=== PATIENT | female | born 1960 | race Caucasian/White ===

== ENCOUNTER → 2016-04-17 | Outpatient (CLI) | payer MEDICAID ==
[~2016-04-17] MED LIST: AEROECLIPSE NEB1 DEV; ALBUTEROL SULFAT3 M2 IH; ALPRAZOLAM0.5 M3 PO; ASPIRIN ADULT L81 M2 PO; ATROVENT H0.017 MG/A IH; DIFLUCAN 100MG100 MG PO; GABAPENTIN100 MG PO; GOOD NEIGHBOR P20 M1 PO; HYDROXYZINE PAM50 MG PO; LEVAQUIN500 MG PO; LEVAQUIN750 MG PO; LOPRESSOR 50 MG50 MG PO; MAGMTHWSH PO; METOPROLOL25 MG PO; NEURONTIN400 MG PO; ONDANSETRON8 M1 PO; OXYCODONE 5MG TA5 MG PO; PHENERGAN120 ML/BOT PO; SYMBICORT1 AE1 IH; ULTRAM50 MG PO; VISTARIL25 MG PO; XANAX 0.25MG0.25 MG PO; [UNRECOGNIZED DRUG - OTHER] PO
[2016-04-17 12:49] LABS: HEMOGLOBIN 14.2 g/dL (12.2-16.2); LYMPH # 1.3 K/mm3 (0.7-4.5); LYMPH % 22.6 % (10-50.0)
[2016-04-17 14:22] LABS: BUN 10 mg/dL (7-18)
[2016-04-17 14:23] LABS: GFR (ESTIMATED) 103 ML/MIN (59-)
== END ==
LOC: LAB 12:36
PROVIDERS: Nurse Practitioner
DX: C34.90 Malignant neoplasm of unspecified part of unspecified bronchus or lung (principal); R53.0 Neoplastic (malignant) related fatigue

== ENCOUNTER → 2016-06-02 | Outpatient (CLI) | payer MEDICAID ==
[2016-06-02 14:46] LABS: HEMOGLOBIN 14.2 g/dL (12.2-16.2); LYMPH # 1.3 K/mm3 (0.7-4.5); LYMPH % 27.9 % (10-50.0)
[2016-06-02 15:31] LABS: BUN 12 mg/dL (7-18)
[2016-06-02 15:40] LABS: GFR (ESTIMATED) 103 ML/MIN (59-)
== END ==
LOC: LAB 14:36
PROVIDERS: Nurse Practitioner Family
DX: B18.2 Chronic viral hepatitis C (principal)

== ENCOUNTER 2016-12-26 11:46 | Emergency (ER) | payer MEDICAID ==
[~2016-12-26] VITALS: Ht 170.2 cm; Wt 69.4 kg
[~2016-12-26 11:46] MED LIST changes: +ATORVASTATIN CA40 MG PO; +BEVESPI AEROS10.7 GM IH; +ISOSORBIDE MONO30 MG PO; +LIPITOR10 MG PO; +METOPROLOL 25 M25 MG PO; +NITROGLYCERIN0.4 M1 SL; +NORCO 325 MG-51 TAB PO
--- NOTE | 2016-12-26 12:15 | Emergency Room Report ---
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 N Clinical Suspician of Infection? N Mental Status: 1 - Regular (Normal Baseline) Sepsis Risk:Possible Sepsis Risk Have you (or family members/close friends) recently traveled outside the [place]? N If Yes, where/when: Have you had exposure to infectious disease within the past month? TB? Other? Specify: 56 years old white female with multiple medical problems including coronary artery disease and chronic obstructive pulmonary disease and non-small cell lung cancer of the LEFT lower lobe. She has been experiencing a retrosternal chest pain alternating between sharp and pressure radiating to both upper extremities for the past weeks. She had an episode this morning at 9:30 this was relieved with nitroglycerin after 2 minutes. He presented to the ED for evaluation. She has refused treatment with chemotherapy for her non-small cell cancer and she is using home remedies. she continues to smoke. Ii reviewed her cth report and oncology report. Source patient, RN notes reviewed, old records, cath report and oncology report from 12/20/16. Exam Limitations no limitations ALLERGIES Coded Allergies: isosorbide (From IMDUR) (Intermediate, 12/26/16) tramadol (Intermediate, NERVES 12/31/15) naproxen (UNKNOWN 12/31/15) Home Medications Active Scripts NEBULIZER (Aeroeclipse II Nebulizer) 1 EACH NA UD #1 Prov: 12/22/15 Albuterol Sulfate (Albuterol 0.042% Neb) 1.25 MG IH TIDP PRN SHORTNESS OF AIR #30 VIAL Prov: 12/22/15 Reported Medications Omeprazole 20 MG PO BID Ipratropium [place] (Atrovent Hfa) 2 PUFF IH Q4HP PRN SHORTNESS OF BREATH BUDESONIDE/FORMOTEROL FUMARATE (Symbicort 160-4.5 Mcg Inhaler) 2 PUFF IH BID Alprazolam 0.5 MG PO TIDP PRN ANXIETY GABAPENTIN (Gabapentin) 400 MG PO TID Metoprolol Tartrate (Metoprolol 25MG) 25 MG PO QHS Aspirin 81 MG PO DAILY OXYCODONE IR (Oxycodone IR) 5 MG PO Q6HP PRN PAIN #120 Nitroglycerin 0.4 MG SL PRN PRN CHEST PAIN #25 Glycopyrrolate/Formoterol Fum (Bevespi Aerosphere Inhaler) 10.7 GM IH PRN PRN BREATHING History Medical History General CAD? No Angina: Yes [place]: Yes Hypertension? Yes Hyperlipidemia? Yes CHF? No DVT? No PE? No COPD? Yes Asthma? Yes Anemia? Yes GERD? No Gastric ulcers? No GI Bleed? No Hernia? No Thyroid Problems? No Hypothyroidism? No CVA? No Seizures? No Diabetes? No Renal Insuffiency? No End Stage Renal Disease? No UTI? No Stones? No BPH? No GB Disease: No Nephritic Syndrome? No Asplenia? No Hepatitis? Yes Sickle Cell Disease? No Arthritis? No Migraines? No Cataracts? No Glaucoma? No MRSA? No HIV? No TB? No Anxiety? Yes Depression? No Cancer? Yes Site: LUNG More? 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 Respiratory no symptoms reported Cardiovascular see HPI Gastrointestinal no symptoms reported Genitourinary no symptoms reported. Musculoskeletal no symptoms reported Skin no symptoms reported Psychiatric/Neurological no symptoms reported Physical Exam Vital Signs Vital Signs Date Time Temp Pulse Resp B/P Pulse O2 O2 Flow FiO2 Ox Delivery Rate 12/26 1328 85 18 113/70 93 12/26 1238 98.2 84 18 106/60 93 12/26 1150 98.0 93 20 104/55 98 General Appearance normal appearance, WD/WN Eye Exam - bilateral eye normal exam, bilateral eye PERRL, bilateral eye EOMI Ear, Nose, Throat hearing grossly normal, normal ENT inspection Neck normal inspection, non-tender, supple, full range of motion Respiratory Status Yes: trachea midline, chest symmetrical, non tender chest. No: respiratory distress. Lung Sounds bilateral: normal breath sounds, lungs clear. 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 No Results/Orders Laboratory Tests 12/26/16 1205: Lactic Acid Pending 12/26/16 1205: B-Natriuretic Peptide 126 H 12/26/16 1205: Sodium 140, Potassium 3.8, Chloride 104, Carbon Dioxide 29, BUN 9, Creatinine 0.8, Estimated Creat Clear 85, Estimated GFR (MDRD) 74, Glucose 100, Calcium 8.8 , Total Bilirubin 0.5, AST 33, ALT 33, Alkaline Phosphatase 154 H, Creatine Kinase 70, CK-MB (CK-2) Rel Index 1.3, CK and CKMB Interp 0.9, Troponin I < 0.02 , Total Protein 8.3 H, Albumin 3.6, Globulin 4.7 H, Albumin/Globulin Ratio 0.8 L, D-Dimer 375, WBC 4.4 L, RBC 4.88, Hgb 14.8, Hct 44.4, MCV 91.0, RDW 14.4, Plt Count 331, MPV 7.4, Gran % 63.1, Gran # 2.8, Lymphocytes % 24.3, Monocytes % 9.6 H, Eosinophils % 2.2, Basophils % 0.7, Lymphocytes # 1.1, Monocytes # 0.4, Eosinophils # 0.1, Basophils # 0.0, PUBS MCHC 33.0, MCH 30.1 Current Medication Orders Sig/Veronica Start time Last Medication Dose Route Stop Time Status Admin Sodium Chloride 10 ML PRN PRN 12/26 1200 AC IV 12/27 1150 Orders Procedure Date/time Status LACTIC ACID 12/26 1327 Active CULTURE, BLOOD 12/26 1324 Active D-DIMER 12/26 1209 Complete BRAIN NATRIURETIC PEPTIDE 12/26 1209 Complete ELECTROCARDIOGRAM REQUEST 12/26 1150 Active IV SALINE LOCK 12/26 1150 Active CBC WITH AUTO DIFF 12/26 1150 Complete CARDIAC ENZYMES 12/26 1150 Complete CHEM 12 PROFILE 12/26 1150 Complete 12 LEAD EKG-BRIAN (INITIAL) 12/26 UNK Active CM/EKG 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 Unchanged. Departure Departure Time of Disposition 1212 Disposition DC/XFER from ER to ... Hosp Clinical Impression Primary Impression: Atypical chest pain Secondary Impressions: COPD (chronic obstructive pulmonary disease), Lung cancer , Non compliance w medication regimen, Tobacco use Condition STABLE Referrals Mounika Kiran APRN (Family) Additional Instructions I discussed with Ms. Flores her present findings including labs and chest x-ray. She was advised to return back to [facility]. She told me she states she is scared of taking these medications. I explained to her that she had coronary artery disease and she needs her medications. She told me that she will follow up with her order fulfillment specialist in 2 days. I notified The order fulfillment specialist of the situation from the Ed , they will see her in the office. She demanded an antibiotic prescription because she had similar symptoms in the past and it was bronchitis. I advised her to stop smoking at least because of her cancer that she is not getting treatment for. She verbalizes understanding. She'll continue to follow up with her order fulfillment specialist and her oncologist. Discharge Counseling Counseled pt/family regarding diagnosis, test results, medications/RX, home care, follow up needs Prescriptions Current Visit Scripts Azithromycin (Zithromax) 250 MG PO DAILY #6 TAB USE DIRECTED. Benzonatate (Tessalon Perle) 100 MG PO Q4HP PRN cough #24 SGL ED Critical Care Critical Care No If Critical Care minutes are documented, the time involved in the performance of seperately reportable procedures was not counted toward critical care time documented. I directly delivered medical care to this critically ill and/or injured patient. Timely evaluation and treatment was necessary to address the significant organ system(s) dysfunction present in this patient. at 1352
--- NOTE | 2016-12-26 12:15 | Emergency Room Report ---
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 N Clinical Suspician of Infection? N Mental Status: 1 - Regular (Normal Baseline) Sepsis Risk:Possible Sepsis Risk Have you (or family members/close friends) recently traveled outside the [place]? N If Yes, where/when: Have you had exposure to infectious disease within the past month? TB? Other? Specify: 56 years old white female with multiple medical problems including coronary artery disease and chronic obstructive pulmonary disease and non-small cell lung cancer of the LEFT lower lobe. She has been experiencing a retrosternal chest pain alternating between sharp and pressure radiating to both upper extremities for the past weeks. She had an episode this morning at 9:30 this was relieved with nitroglycerin after 2 minutes. He presented to the ED for evaluation. She has refused treatment with chemotherapy for her non-small cell cancer and she is using home remedies. she continues to smoke. Ii reviewed her cth report and oncology report. Source patient, RN notes reviewed, old records, cath report and oncology report from 12/20/16. Exam Limitations no limitations ALLERGIES Coded Allergies: isosorbide (From IMDUR) (Intermediate, 12/26/16) tramadol (Intermediate, NERVES 12/31/15) naproxen (UNKNOWN 12/31/15) Home Medications Active Scripts NEBULIZER (Aeroeclipse II Nebulizer) 1 EACH NA UD #1 Prov: 12/22/15 Albuterol Sulfate (Albuterol 0.042% Neb) 1.25 MG IH TIDP PRN SHORTNESS OF AIR #30 VIAL Prov: 12/22/15 Reported Medications Omeprazole 20 MG PO BID Ipratropium [place] (Atrovent Hfa) 2 PUFF IH Q4HP PRN SHORTNESS OF BREATH BUDESONIDE/FORMOTEROL FUMARATE (Symbicort 160-4.5 Mcg Inhaler) 2 PUFF IH BID Alprazolam 0.5 MG PO TIDP PRN ANXIETY GABAPENTIN (Gabapentin) 400 MG PO TID Metoprolol Tartrate (Metoprolol 25MG) 25 MG PO QHS Aspirin 81 MG PO DAILY OXYCODONE IR (Oxycodone IR) 5 MG PO Q6HP PRN PAIN #120 Nitroglycerin 0.4 MG SL PRN PRN CHEST PAIN #25 Glycopyrrolate/Formoterol Fum (Bevespi Aerosphere Inhaler) 10.7 GM IH PRN PRN BREATHING History Medical History General CAD? No Angina: Yes [place]: Yes Hypertension? Yes Hyperlipidemia? Yes CHF? No DVT? No PE? No COPD? Yes Asthma? Yes Anemia? Yes GERD? No Gastric ulcers? No GI Bleed? No Hernia? No Thyroid Problems? No Hypothyroidism? No CVA? No Seizures? No Diabetes? No Renal Insuffiency? No End Stage Renal Disease? No UTI? No Stones? No BPH? No GB Disease: No Nephritic Syndrome? No Asplenia? No Hepatitis? Yes Sickle Cell Disease? No Arthritis? No Migraines? No Cataracts? No Glaucoma? No MRSA? No HIV? No TB? No Anxiety? Yes Depression? No Cancer? Yes Site: LUNG More? 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 Respiratory no symptoms reported Cardiovascular see HPI Gastrointestinal no symptoms reported Genitourinary no symptoms reported. Musculoskeletal no symptoms reported Skin no symptoms reported Psychiatric/Neurological no symptoms reported Physical Exam Vital Signs Vital Signs Date Time Temp Pulse Resp B/P Pulse O2 O2 Flow FiO2 Ox Delivery Rate 12/26 1328 85 18 113/70 93 12/26 1238 98.2 84 18 106/60 93 12/26 1150 98.0 93 20 104/55 98 General Appearance normal appearance, WD/WN Eye Exam - bilateral eye normal exam, bilateral eye PERRL, bilateral eye EOMI Ear, Nose, Throat hearing grossly normal, normal ENT inspection Neck normal inspection, non-tender, supple, full range of motion Respiratory Status Yes: trachea midline, chest symmetrical, non tender chest. No: respiratory distress. Lung Sounds bilateral: normal breath sounds, lungs clear. 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 No Results/Orders Laboratory Tests 12/26/16 1205: Lactic Acid Pending 12/26/16 1205: B-Natriuretic Peptide 126 H 12/26/16 1205: Sodium 140, Potassium 3.8, Chloride 104, Carbon Dioxide 29, BUN 9, Creatinine 0.8, Estimated Creat Clear 85, Estimated GFR (MDRD) 74, Glucose 100, Calcium 8.8 , Total Bilirubin 0.5, AST 33, ALT 33, Alkaline Phosphatase 154 H, Creatine Kinase 70, CK-MB (CK-2) Rel Index 1.3, CK and CKMB Interp 0.9, Troponin I < 0.02 , Total Protein 8.3 H, Albumin 3.6, Globulin 4.7 H, Albumin/Globulin Ratio 0.8 L, D-Dimer 375, WBC 4.4 L, RBC 4.88, Hgb 14.8, Hct 44.4, MCV 91.0, RDW 14.4, Plt Count 331, MPV 7.4, Gran % 63.1, Gran # 2.8, Lymphocytes % 24.3, Monocytes % 9.6 H, Eosinophils % 2.2, Basophils % 0.7, Lymphocytes # 1.1, Monocytes # 0.4, Eosinophils # 0.1, Basophils # 0.0, PUBS MCHC 33.0, MCH 30.1 Current Medication Orders Sig/Veronica Start time Last Medication Dose Route Stop Time Status Admin Sodium Chloride 10 ML PRN PRN 12/26 1200 AC IV 12/27 1150 Orders Procedure Date/time Status LACTIC ACID 12/26 1327 Active CULTURE, BLOOD 12/26 1324 Active D-DIMER 12/26 1209 Complete BRAIN NATRIURETIC PEPTIDE 12/26 1209 Complete ELECTROCARDIOGRAM REQUEST 12/26 1150 Active IV SALINE LOCK 12/26 1150 Active CBC WITH AUTO DIFF 12/26 1150 Complete CARDIAC ENZYMES 12/26 1150 Complete CHEM 12 PROFILE 12/26 1150 Complete 12 LEAD EKG-BRIAN (INITIAL) 12/26 UNK 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 Unchanged. Departure Departure Time of Disposition 1212 Disposition DC/XFER from ER to ... Hosp Clinical Impression Primary Impression: Atypical chest pain Secondary Impressions: COPD (chronic obstructive pulmonary disease), Lung cancer , Non compliance w medication regimen, Tobacco use Condition STABLE Referrals Mounika Kiran APRN (Family) Additional Instructions I discussed with Ms. Flores her present findings including labs and chest x-ray. She was advised to return back to [facility]. She told me she states she is scared of taking these medications. I explained to her that she had coronary artery disease and she needs her medications. She told me that she will follow up with her nursing director in 2 days. I notified The nursing director of the situation from the Ed , they will see her in the office. She demanded an antibiotic prescription because she had similar symptoms in the past and it was bronchitis. I advised her to stop smoking at least because of her cancer that she is not getting treatment for. She verbalizes understanding. She'll continue to follow up with her nursing director and her oncologist. Discharge Counseling Counseled pt/family regarding diagnosis, test results, medications/RX, home care, follow up needs Prescriptions Current Visit Scripts Azithromycin (Zithromax) 250 MG PO DAILY #6 TAB USE DIRECTED. Benzonatate (Tessalon Perle) 100 MG PO Q4HP PRN cough #24 SGL ED Critical Care Critical Care No If Critical Care minutes are documented, the time involved in the performance of seperately reportable procedures was not counted toward critical care time documented. I directly delivered medical care to this critically ill and/or injured patient. Timely evaluation and treatment was necessary to address the significant organ system(s) dysfunction present in this patient. at 135
[2016-12-26 12:26] LABS: LYMPH # 1.1 K/mm3 (0.7-4.5); LYMPH % 24.3 % (10-50.0)
[2016-12-26 12:28] LABS: HEMOGLOBIN 14.8 g/dL (12.2-16.2)
[2016-12-26 12:47] LABS: BUN 9 mg/dL (7-18)
[2016-12-26 12:48] LABS: GFR (ESTIMATED) 74 ML/MIN (59-)
--- NOTE | 2016-12-26 13:32 | RADIOLOGY REPORT PS360 ---
CHEST(2 VIEWS-NOT PORTABLE) HISTORY: CHEST PAIN, lung mass, dyspnea ORDERING PHYSICIAN: Mirta Hutchins MD PATIENT AGE: 56 years COMPARISON: Chest CT of 11/02/2016 and radiograph of 09/09/2016 FINDINGS: Normal heart size.. Left lower lobe mass is again noted measuring 4 cm with associated atelectasis and/or fibrosis in left lung base with blunting of the CP angle. Pleural thickening is present along the posterior hemithorax and is somewhat more prominent compared to the prior radiograph and may represent loculated effusion. The right lung is clear. No acute bony anomalies. IMPRESSION: 1. No change left lower lobe mass suspicious for neoplasm with chronic changes in the left lung base and pleural thickening along the left lower hemithorax posteriorly.
[2016-12-26] MEDS ORDERED: ZITHROMAX Z-PA250 M2 PO (13:54)
[2016-12-26] MEDS ORDERED: TESSALON PERLE100 M1 PO (13:54)
[2016-12-26 14:02] VITALS: BP 113/70
[2017-01-02] MEDS ORDERED: PREDNISONE 5MG.5 MG PO (20:03)
[2017-01-09] MEDS ORDERED: TYLENOL WITH CO1 TA1 PO (09:32)
[2017-01-17] MEDS ORDERED: LOPRESSOR 50 MG50 MG PO (10:49)
[2017-01-17] MEDS ORDERED: NORVASC 5MG. TAB5 MG PO (11:12)
[2017-01-17] MEDS ORDERED: ZITHROMAX Z PA250 MG PO (11:13)
== END 2016-12-26 14:03 | disposition short-term general hospital (02) ==
LOC: ER 11:46
PROVIDERS: Emergency Medicine
DX: R07.89 Other chest pain (principal); J44.9 Chronic obstructive pulmonary disease, unspecified; Z91.14 Patient's other noncompliance with medication regimen; F17.210 Nicotine dependence, cigarettes, uncomplicated; I25.2 Old myocardial infarction; E78.5 Hyperlipidemia, unspecified; Z79.82 Long term (current) use of aspirin; Z79.891 Long term (current) use of opiate analgesic; Z79.899 Other long term (current) drug therapy; I10 Essential (primary) hypertension; C34.91 Malignant neoplasm of unspecified part of right bronchus or lung; Z98.61 Coronary angioplasty status

== ENCOUNTER 2017-01-02 17:10 | Emergency (ER) | payer MEDICAID ==
[~2017-01-02] VITALS: Ht 170.2 cm; Wt 70.8 kg
--- NOTE | 2017-01-02 18:17 | Emergency Room Report ---
See Addendum History of Present Illness Time Seen by [id number] Presenting Problem in Triage Pt arrived:Walked Presenting Problem:LBP X1 WEEK, STATES SENT HERE BY DR. 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 N Clinical Suspician of Infection? N Mental Status: 1 - Regular (Normal Baseline) Sepsis Risk:Low Sepsis Risk Have you (or family members/close friends) recently traveled outside the [place]? N If Yes, where/when: Have you had exposure to infectious disease within the past month? N TB? Other? Specify: Source patient, RN notes reviewed Exam Limitations no limitations Comment Pt comes to the ED with severe pain in her low back and left hip. She was reportedly told she had a bulging disc on MRI about a year ago and was seeing someone in the pain clinic and getting SHAWN but last shot was in September. NOw comes to the ED with worseing pain in Left low back and in left hip. No history of any injury but pain worse for the past week. She also has history of NSCLC and went through Chemo and Radiation about 2 years ago. She denies any UT or BM problem and no saddle anesthesia Cardiac Chest Pain Chest pain indicative of cardiac No ALLERGIES Coded Allergies: isosorbide (From IMDUR) (Intermediate, 12/26/16) tramadol (Intermediate, NERVES 12/31/15) naproxen (UNKNOWN 12/31/15) Home Medications Active Scripts Azithromycin (Zithromax) 250 MG PO DAILY #6 TAB Prov: 12/26/16 Benzonatate (Tessalon Perle) 100 MG PO Q4HP PRN cough #24 SGL Prov: 12/26/16 NEBULIZER (Aeroeclipse II Nebulizer) 1 EACH NA UD #1 Prov: 12/22/15 Albuterol Sulfate (Albuterol 0.042% Neb) 1.25 MG IH TIDP PRN SHORTNESS OF AIR #30 VIAL Prov: 12/22/15 Reported Medications Omeprazole 20 MG PO BID Ipratropium [place] (Atrovent Hfa) 2 PUFF IH Q4HP PRN SHORTNESS OF BREATH BUDESONIDE/FORMOTEROL FUMARATE (Symbicort 160-4.5 Mcg Inhaler) 2 PUFF IH BID Alprazolam 0.5 MG PO TIDP PRN ANXIETY GABAPENTIN (Gabapentin) 400 MG PO TID Metoprolol Tartrate (Metoprolol 25MG) 25 MG PO QHS Aspirin 81 MG PO DAILY OXYCODONE IR (Oxycodone IR) 5 MG PO Q6HP PRN PAIN #120 Nitroglycerin 0.4 MG SL PRN PRN CHEST PAIN #25 Glycopyrrolate/Formoterol Fum (Bevespi Aerosphere Inhaler) 10.7 GM IH PRN PRN BREATHING History Medical History General CAD? No Angina: Yes [place]: Yes Hypertension? Yes Hyperlipidemia? Yes CHF? No DVT? No PE? No COPD? Yes Asthma? Yes Anemia? Yes GERD? No Gastric ulcers? No GI Bleed? No Hernia? No Thyroid Problems? No Hypothyroidism? No CVA? No Seizures? No Diabetes? No Renal Insuffiency? No End Stage Renal Disease? No UTI? No Stones? No BPH? No GB Disease: No Nephritic Syndrome? No Asplenia? No Hepatitis? Yes Sickle Cell Disease? No Arthritis? No Migraines? No Cataracts? No Glaucoma? No MRSA? No HIV? No TB? No Anxiety? Yes Depression? No Cancer? Yes Site: LUNG More? 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 No Results/Orders Current Medication Orders Sig/Veronica Start time Last Medication Dose Route Stop Time Status Admin Methylprednisolone 80 MG ONCE ONE 01/02 1815 DC Acetate IM 01/03 1816 Orders Procedure Date/time Status HIP LT 2-3V W/PELVIS IF PERFOR 01/[address] LUMBAR SPINE W/O CONTRAST 01/[address] SCAN REQUEST 01/02 1813 Complete Departure Departure Time of Disposition 1999 Disposition DC/XFER Cancer [facility] Clinical Impression Primary Impression: Low back pain Qualifiers: Chronicity: unspecified Back pain laterality: left Sciatica presence: with sciatica Sciatica laterality: sciatica of left side Qualified Code: M54.42 - Lumbago with sciatica, left side Condition STABLE Additional Instructions Sleep on flat hard surface. Followup with Pain medicine doctor for further evaluation and treatment. May need a repeat MRI as CT scan does not show anything acute Discharge Counseling Counseled pt/family regarding diagnosis, test results, home care, follow up needs Prescriptions Current Visit Scripts Prednisone (Prednisone 5MG) 5 MG PO DIRECTED #39 TAB 6 tabs QD X 3D 4 tabs QD X 3D 2 tabs QD X 3D 1 tab QD X 3D ED Critical Care Critical Care No If Critical Care minutes are documented, the time involved in the performance of seperately reportable procedures was not counted toward critical care time documented. I directly delivered medical care to this critically ill and/or injured patient. Timely evaluation and treatment was necessary to address the significant organ system(s) dysfunction present in this patient. at 2003
[2017-01-02 20:27] VITALS: BP 111/57
--- NOTE | 2017-01-03 04:59 | RADIOLOGY REPORT PS360 ---
CT LUMBAR SPINE W/O CONTRAST CLINICAL INDICATION: LOW BACK PAIN AND LEFT HIP PAIN ORDERING PHYSICIAN: Sheryl Saxena MD PATIENT AGE: 56 years COMPARISON: MRI 02/10/2015 TECHNIQUE:Axial, sagittal, and coronal images are generated and reviewed without contrast FINDINGS: There is normal alignment. No fracture or dislocation is evident. No lytic or blastic change. Left hemidiaphragm is elevated. There is mild bulging disc L4-L5 and L5-S1. The bulging disc at L5-S1 is slightly eccentric toward the left. Mild bilateral foraminal narrowing slightly greater on the left. Mild bilateral lateral recess narrowing at L4-L5. Minimal endplate osteophytes from L3 to L5. Mild facet arthropathy L4-5 and L5-S1. Mild sclerosis of the SI joints. Nonobstructing right nephrolithiasis. Right renal cortical scarring IMPRESSION: 1. Lumbar spondylosis. Mild bulging disc and facet arthropathy at L4-L5 and L5-S1. 2. No acute fracture. 3. Right nephrolithiasis
--- NOTE | 2017-01-03 05:46 | RADIOLOGY REPORT PS360 ---
HIP LT 2-3V W/PELVIS IF PERFOR HISTORY: low back and left hip pain ORDERING PHYSICIAN: Sheryl Saxena MD PATIENT AGE: 56 years COMPARISON: 02/17/2015 FINDINGS: Mild osteoarthritic changes are present involving the left hip with slight decrease in the joint space and osteophyte formation along the acetabulum. No fracture or dislocation. No lytic or blastic change. The osteoarthritis may be slightly worse compared to 02/17/2015. Incidental note is also made of osteoarthritic changes of the right hip seen on the AP view the pelvis IMPRESSION: Osteoarthritis of both hips
== END 2017-01-02 20:28 | disposition designated cancer center or children's hospital (05) ==
LOC: ER 17:10
DX: M54.42 Lumbago with sciatica, left side (principal); I10 Essential (primary) hypertension; J44.9 Chronic obstructive pulmonary disease, unspecified; Z85.118 Personal history of other malignant neoplasm of bronchus and lung; Z92.21 Personal history of antineoplastic chemotherapy; Z92.3 Personal history of irradiation; Z79.82 Long term (current) use of aspirin; Z79.891 Long term (current) use of opiate analgesic; Z79.51 Long term (current) use of inhaled steroids; Z79.899 Other long term (current) drug therapy

== ENCOUNTER → 2017-01-30 | Day surgery (SDC) | payer MEDICAID ==
[~2017-01-30] VITALS: Ht 170.2 cm; Wt 69.4 kg
[~2017-01-30] MED LIST changes: +NORVASC 5MG. TAB5 MG PO; +PREDNISONE 5MG.5 MG PO; +TESSALON PERLE100 M1 PO; +TYLENOL WITH CO1 TA1 PO; +ZITHROMAX Z PA250 MG PO; +ZITHROMAX Z-PA250 M2 PO
[2017-01-30 16:17] VITALS: BP 131/69
[2017-01-30 16:35] VITALS: BP 131/69
[2017-01-30 16:36] VITALS: BP 121/92
[2017-01-30 16:44] VITALS: BP 101/55
--- NOTE | 2017-01-30 16:45 | Procedure Note ---
Procedure detail Date of procedure: 01/30/17 Anesthesiologist: Rio Lara Complications: None Pre-procedure diagnosis: LEFT sacroiliitis Post-procedure diagnosis: Same. Indications for procedure: Very pleasant 56-year-old white female returns our procedure clinic today for repeat LEFT SI joint injection. She hasn't significant improvement terms her LEFT hip pain after receiving previous LEFT SI joint injection several months ago. Procedure detail: Procedure: Left sacroiliac injection under fluoroscopy Informed consent was obtained and the risk and benefits of the procedure were explained to the patient.~ The patient was taken to the procedure room and noninvasive monitors were placed including noninvasive blood pressure cuff and pulse oximeter.~ The patient was placed prone on the procedure table.~ The~ left hip was cleansed using Betadine as a cleansing solution.~ C-arm fluorosocpy was used to view the left SI joint.~ The skin and subcutaneous tissues were anesthetized using Lidocaine 1.5% and a 25-gauge needle.~ After this, a 22-gauge spinal needle was inserted under fluoroscopic guidance into the inferior aspect of the left SI joint.~ Omnipaque dye was injected and a good spread was seen throughout the joint.~ After this, approximately 5 mL of bupivacaine 0.25% and Depo-Medrol 40 mg was incrementally injected into the sacroiliac joint.~ The patient tolerated the procedure well with no complications.~ The patient was observed in the Pain Clinic for a period of 30-45 minutes, then discharged home neurologically intact.~ Plan and disposition: Patient was evaluated 10 minutes post procedure. She's doing very well. She'll return to see us in the pain clinic for further evaluation. at [id number]
== END ==
LOC: PM 15:40
PROC: 3E0U33Z Introduction of Anti-inflammatory into Joints, Percutaneous Approach (ICD-10-PCS; principal; 2017-01-30)
PROC: 3E0U3BZ Introduction of Anesthetic Agent into Joints, Percutaneous Approach (ICD-10-PCS; 2017-01-30)
DX: M46.1 Sacroiliitis, not elsewhere classified (principal)
CPT/HCPCS: G0260; J1040; Q9966

== ENCOUNTER 2017-02-09 09:51 | Emergency (ER) | payer MEDICAID ==
[~2017-02-09] VITALS: Ht 170.2 cm; Wt 70.8 kg
--- NOTE | 2017-02-09 10:33 | Urgent Treatment Center Report ---
History of Present Issue Date/Time Seen by Provider 02/09/17 1023 Visit Reason Pt arrived:Walked Presenting Problem:PT STATES SHE WAS MAIKING HER BED LAST NIGHT AND WALKED INTO THE WOODEN STEPS BESIDE HER BED AND INJURED HER RT KNEE Location if Accident:Home Onset of symptoms date/time:02/08/17 or onset unknown for: Have you (or family members/close friends) recently traveled outside the [place]? N If Yes, where/when: Have you had exposure to infectious disease within the past month? TB? Other? Specify: Patient state that she was making her bed last night when she accidently walked into small wood steps that she has at her bed for her dogs to climb Patient state that she has had fractured Patella about 9 years ago in this same knee. State that ever since she hit the knee on the wooden steps she has been having pain and swelling and she has been putting ice on the knee which helps some with pain ALLERGIES Coded Allergies: tramadol (Intermediate, NERVES 12/31/15) Home Medications Active Scripts NEBULIZER (Aeroeclipse II Nebulizer) 1 EACH NA UD #1 Prov: 12/22/15 Albuterol Sulfate (Albuterol 0.042% Neb) 1.25 MG IH TIDP PRN SHORTNESS OF AIR #30 VIAL Prov: 12/22/15 Amlodipine Besylate (Norvasc) 5 MG PO DAILY #30 TAB Prov: 01/17/17 Azithromycin (Zithromycin (Z-BETO) 250MG Tab) 250 MG PO DAILY #6 TAB Prov: 01/17/17 Reported Medications Ipratropium [place] (Atrovent Hfa) 2 PUFF IH Q4HP PRN SHORTNESS OF BREATH BUDESONIDE/FORMOTEROL FUMARATE (Symbicort 160-4.5 Mcg Inhaler) 2 PUFF IH BID Alprazolam 0.5 MG PO TIDP PRN ANXIETY GABAPENTIN (Gabapentin) 400 MG PO TID Metoprolol Tartrate (Metoprolol 25MG) 25 MG PO QHS Metoprolol Tartrate (Lopressor) 50 MG PO DAILY Omeprazole 20 MG PO DAILY Aspirin 81 MG PO DAILY OXYCODONE IR (Oxycodone IR) 5 MG PO Q6HP PRN PAIN #120 Nitroglycerin 0.4 MG SL PRN PRN CHEST PAIN #25 Glycopyrrolate/Formoterol Fum (Bevespi Aerosphere Inhaler) 10.7 GM IH PRN PRN BREATHING History Medical History General CAD? No Angina: Yes [place]: Yes Hypertension? Yes Hyperlipidemia? Yes CHF? No DVT? No PE? No COPD? Yes Asthma? Yes Anemia? Yes GERD? No Gastric ulcers? No GI Bleed? No Hernia? No Thyroid Problems? No Hypothyroidism? No CVA? No Seizures? No Diabetes? No Renal Insuffiency? No UTI? No Stones? No BPH? No GB Disease: No Nephritic Syndrome? No Asplenia? No Hepatitis? Yes Sickle Cell Disease? No Arthritis? No Migraines? No Cataracts? No Glaucoma? No MRSA? No HIV? No TB? No Anxiety? Yes Depression? No Cancer? Yes Site: LUNG More? Yes Additional hx: HEPATITIS C EMPHYSEMA R/T LUNG CA Immunization HX DT/Tetanus Unknown Flu Refused Pneumonia Refuses Surgical Hx Previous Surgery?Y TUBAL LIGATION LIVER BIOPSY BRONCHOSCOPY HEART CATH Family History Family HX Diabetes Yes CAD No Hypertension No Hyperlipidemia No Cancer No TB No Social History Smoking Hx Smoker: Current Every Day Smoker Tobacco: Yes Type Cigarettes Packs/day < 1 Pack Alcohol Alcohol: Yes Review of Systems All Other Systems Reviewed and Negative Comment Pain and swelling in right knee Physical Exam Vital Signs Vital Signs Date Time Temp Pulse Resp B/P Pulse O2 O2 Flow FiO2 Ox Delivery Rate 02/09 1012 98.1 87 16 105/63 98 General Appearance normal appearance, WD/WN Respiratory Status Yes: trachea midline, chest symmetrical. No: respiratory distress. Lung Sounds bilateral: normal breath sounds, lungs clear. Cardiovascular normal exam, regular rate/rhythm Extremities swelling, Swelling and tenderness right knee, no discoloration, good pulses denies numbness Neurologic alert, normal exam, oriented x 3 Medical Decision Making LABS/Meds/Orders Pt receiving controlled substance in ED? No Results/Orders Current Medication Orders Sig/Veronica Start time Last Medication Dose Route Stop Time Status Admin Ketorolac 60 MG ONCE ONE 02/09 1100 DC Tromethamine IM 02/09 1101 Ketorolac 0 .STK-MED ONE 02/09 1100 DC Tromethamine .ROUTE Orders Procedure Date/time Status UTC STABILIZE JOINT/AREA 02/09 1053 Active KNEE-3 VIEWS-RT 02/09 1016 Active XRAY/CT/US XRAY/CT/US XRAY knee XR interpretation by reviewed by me Xray Results no fracture seen Comment discussed with Dr Hemanth Peterson [facility] Progress Notes 1 Comment Patient state that she is not allergic to Tordol, patient given Tordol injection for pain [facility] Progress Notes 2 Comment Patient state that medication helped with pain Departure Departure Time of Disposition 1057 Disposition DC Home or Self Care(routine) Clinical Impression Primary Impression: Knee pain Qualifiers: Chronicity: unspecified Laterality: right Qualified Code: M25.561 - Pain in right knee Condition STABLE Referrals Mounika Kiran APRN (Family) Hedy GAFFNEY,Aj: Today after leaving ER KALEY GAFFNEY, JACE BLOOM: Today after leaving ER Patient Instructions DI for Knee Pain, How To Perform RICE (Rest, Ice, Compress, Elevate) Additional Instructions *RICE, Rest the extremity, Ice 15-20 minutes 3-4 times daily, Compress- wear the moisés wrap as discussed as much as possible to help reduce swelling and pain, Elevate the extremity when at rest *Moisés wrap is for support and help control swelling, use it except in the shower. Be sure that is not to tight but not to loose either *Elevate when resting *Ibuprofen 600-800mg every 6-8 hours as needed for pain an inflammation. If need something more can take Tylenol in between doses of Ibuprofen to help Immediately follow up for new or worsening of symptoms, or no noticeable improvement over the next 3-5 days Discharge Counseling Counseled pt/family regarding diagnosis, test results, medications/RX, home care, follow up needs Prescriptions Current Visit Scripts Etodolac 200 MG PO Q6HP PRN pain #20 CAP at 1119
[2017-02-09] MEDS ORDERED: ETODOLAC200 MG PO (11:16)
[2017-02-09 11:18] VITALS: BP 105/63
--- NOTE | 2017-02-09 15:08 | RADIOLOGY REPORT PS360 ---
KNEE-3 VIEWS-RT HISTORY: INJURED RT KNEE WHEN SHE WALKED INTO A SET OF STEPS ORDERING PHYSICIAN: EMI CERVANTES APRN PATIENT AGE: 56 years COMPARISON: None FINDINGS: No fracture or dislocation. No lytic or blastic change. Normal mineralization. No significant arthritic changes evident. No other significant findings IMPRESSION: Negative Knee
--- OUTSIDE RECORDS SUMMARY | 2017-02-09 17:13 | External Medical Summary Rpt | CCD ---
Author Author , GAUDENCIO Organization GAUDENCIO Address Unknown Phone [email or web address] Care Team Providers Care New Accounts Banking Representative Name Role Phone ABSNER KARAN, ABSNER Unavailable Unavailable K[facility]AN [facility] Unavailable Unavailable [facility], [facility] Unavailable Unavailable [facility], [facility] LETHA PHIPPS MD, PSC, Unavailable Unavailable LETHA PHIPPS MD, PSC [facility] Unavailable Unavailable CARE P, [facility] MARTINEZ HOL, MARTINEZ Unavailable Unavailable HOL BEINEKE, BEINEKE Unavailable Unavailable BEINEKE EDWIN, BEINEKE Unavailable Unavailable EDWIN BESSON, BESSON Unavailable Unavailable BESSON MILTON, BESSON Unavailable Unavailable MILTON [facility], Unavailable Unavailable [facility], Unavailable Unavailable [facility], Unavailable Unavailable [facility] HUFFMAN, HUFFMAN Unavailable Unavailable HUFFMAN ALL, HUFFMAN ALL Unavailable Unavailable [facility] Unavailable Unavailable [facility]ULTANT[facility] O, [facility] Unavailable Unavailable LA, [facility] Unavailable Unavailable LA, [facility] JAY JAY BIENVENIDO, JAY JAY Unavailable Unavailable BIENVENIDO ADELINE, ADEILNE Unavailable Unavailable ADELINE SATHISH, Unavailable Unavailable ADELINE SATHISH MHAIN, MAHIN Unavailable Unavailable KYAKAY, KAYKAY Unavailable Unavailable KAYKAY PHI, Unavailable Unavailable [facility] DUFF, DUFF Unavailable Unavailable LUGO, Unavailable Unavailable LUGO LUGO ANIBAL, Unavailable Unavailable LUGO ANIBAL FRYMAN, FRYMAN Unavailable Unavailable FRYMAN EUG, FRYMAN Unavailable Unavailable EUG JR DREA, DREA, Unavailable Unavailable JR CASSY MEDLEY, Unavailable Unavailable JR CASSY SHEPARD ASHOK, ASHOK Unavailable Unavailable ASHOK RENU, ASHKO Unavailable Unavailable RENU SARAVIA III RAJINDER, Unavailable Unavailable SARAVIA III RAJINDER AUGUST LAUREL, AUGUST LAUREL Unavailable Unavailable [facility] Unavailable Unavailable INC, [facility] Unavailable Unavailable HOSPITAL P, [facility] P JIM FERNANDEZ Unavailable Unavailable JIM ANG, JIM Unavailable Unavailable ANG [facility], Unavailable Unavailable [facility] ISABEL ZEV, ISABEL ZEV Unavailable Unavailable LE MARY ANNE, LE MARY ANNE Unavailable Unavailable JUETT TIFFANY, EMMY TIFFANY Unavailable Unavailable [facility] KM NURSE Unavailable Unavailable PRACTITIONER GR, KMSF NURSE PRACTITIONER GR [facility], Unavailable Unavailable [facility] Unavailable [facility]available [facility], [facility] Unavailable Unavailable [facility], [facility] DARIUS ANA, DARIUS ANA Unavailable Unavailable [facility] Un[facility] MASKEY ABDI, MASKEY Unavailable Unavailable ABDI DIOP JAM, Unavailable Unavailable DIOP JAM [facility] Unavailable Unavailable MEDICAL, [facility] MEDICAL MICHEL, MICHEL Unavailable Unavailable [facility] Unavailable Unavailable AMBULANCE SE, [facility] Un[facility], Unavailable Unavailable [facility], [facility] PAVEZ MAR, PAVEZ MAR Unavailable Unavailable PAVEZ MAR, PAVEZ MAR Unavailable Unavailable PETTEY JAM, PETTEY Unavailable Unavailable JAM RENUSCH SAMMI, RENUSCH Unavailable Unavailable SAMMI ROSENAU, ROSENAU Unavailable Unavailable ROSENAU KUSH, ROSENAU Unavailable Unavailable KUSH SADEK, SADEK Unavailable Unavailable LISA, LISA Unavailable Unavailable LISA MAT, Unavailable Unavailable LISA MAT [facility] Unavailable Unavailable [facility], [facility] Unavailable Unavailable [facility], [facility] GIANNI, Unavailable Unavailable GIANNI SHASHI PHI, SHASHI PHI Unavailable Unavailable [facility] Unavailable Unavailable [facility], [facility], Unavailable Unavailable [facility], [facility] AND Unavailable Unavailable Purpose Continuity of Care Document - 09-01-2013 through 2016 Problems Code Diagnosis DOS Provider Status 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, UNSPECIFIED , UNCOMPLICAT ED F41.9 ANXIETY 02-02-2017 DISORDER, UNSPECIFIED I10 ESSENTIAL 02-02-2017 (PRIMARY) HYPERTENSIO N K21.9 GASTRO-ESOP 02-02-2017 HAGEAL REFLUX DISEASE WITHOUT ESOPHAGITIS R07.9 CHEST PAIN, 02-02-2017 UNSPECIFIED 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 M5442 LUMBAGO 01-02-2017 [facility] LEFT SIDE C3490 MALIGNANT 12-28-2016 [facility] NEOPLASM PHYSICIANS UNS PART GROUP UNS BRONCHUS/BRUCE NG I119 HYPERTENSIV 12-28-2016 [facility] E HEART PHYSICIANS DISEASE GROUP WITHOUT HEART FAILURE I2510 ASHD SHISHMAREF IRA 12-28-2016 [facility] CORONARY PHYSICIANS ARTERY W/O GROUP ANGINA PECT[place]IS J449 CHRONIC 12-28-2016 [facility] OBSTRUCTIVE PHYSICIANS PULMONARY GROUP DISEASE UNS R0789 OTHER CHEST 12-28-2016 [facility] PAIN PHYSICIANS GROUP R9431 ABNORMAL 12-28-2016 [facility] ELECTROCARD PHYSICIANS IOGRAM GROUP R0600 DYSPNEA 12-26-2016 [facility] R079 CHEST PAIN 12-26-2016 [facility] R918 OTHER 12-26-2016 [facility] NONSPECIFIC MEDICAL ABNORMAL IMAGING ASS FINDING OF LUNG FIELD Z9114 PATIENTS 12-26-2016 [facility] PHYSICIANS, NONCOMPLIAN PLL CE W/MEDICATIO N REGIMEN B182 CHRONIC 12-07-2016 [facility] SERV HEPATITIS C FOUNDATION B1920 UNS VIRAL 12-01-2016 [facility] HEPATITIS C SERV WITHOUT FOUNDATION HEPATIC COMA I10 ESSENTIAL 11-02-2016 [facility] HYPERTENSIO INC N I208 OTHER FORMS 11-02-2016 [facility] OF ANGINA PHYSICIANS PECTORIS GROUP J439 EMPHYSEMA 11-02-2016 [facility]PEC[facility] J90 PLEURAL 11-02-2016 [facility] EFF[facility]ION [facility]ICAL NOT IMAGING ASS ELSEWHERE CLASSIFIED R0602 SHORTNESS 11-02-2016 [facility] OF BREATH PHYSICIANS GROUP R222 LOCALIZED 11-02-2016 [facility] MASS AND INC LUMP TRUNK M461 SACROILIITI 10-10-2016 [facility] S NOT [facility] ELSEWHERE INC CLASSIFIED M5136 OTH 10-10-2016 ALISSA OSEGUERA MD, PSC RAL DISC DEGEN LUMBAR REGION M791 MYALGIA 10-10-2016 [facility] INC C3432 MALIGNANT 10-05-2016 [facility] NEOPLASM PHYSICIANS LOWER LOBE GROUP LT BRONCHUS/BRUCE NG I214 NON-ST 10-05-2016 [facility] ELEVATION PHYSICIANS MYOCARDIAL GROUP INFARCTION E785 HYPERLIPIDE 09-21-2016 [facility] UNSPECIFIED INC I229 SUBSEQUENT 09-15-2016 [facility] ST ELEV PHYSICIANS MYOCARDIAL GROUP INFARCT UNS SITE M40083 ASHD SHISHMAREF IRA 09-15-2016 [facility] COR ART PHYSICIANS W/OTH FORMS GROUP ANGINA PECTORIS I209 ANGINA 09-14-2016 [facility] PECT[facility]IS [facility] UNSPECIFIED INC I249 ACUTE 09-10-2016 [facility] ISCHEMIC [facility] HEART INC DISEASE UNSPECIFIED Z720 TOBACCO USE 09-10-2016 [facility] INC C3492 MALIGNANT 08-11-2016 [facility] NEOPLASM [facility] UNS PART INC LEFT BRONCHUS/BRUCE NG I313 PERICARDIAL 08-11-2016 [facility] NONINFLAMMA IMAGING ASS TORY R932 ABNORMAL 06-01-2016 [facility] NURSE FIND ON DX PRACTITIONE IMAGING R GR LIVER & BILI TRACT K829 DISEASE OF 05-24-2016 [facility] GALLBLADDER SERV FOUNDATION UNSPECIFIED N289 DISORDER OF 05-24-2016 [facility] UNSPECIFIED Z08 ENCOUNTER 05-10-2016 F/U EXAM [facility] AFTER [facility] NEOPLASM B95195 PERSONAL HX 05-10-2016 [facility] NEOPLASM HOSPITALS BRONCHUS & LUNG R530 NEOPLASTIC 04-26-2016 [facility] MALIGNANT [facility] RELATED INC FATIGUE R911 SOLITARY 04-26-2016 [facility] PULMONARY [facility]ICAL NODULE IMAGING ASS J40 BRONCHITIS 03-02-2016 [place] NOT MEDICAL SPECIFIED IMAGING ASS ACUTE OR CHRONIC E860 DEHYDRATION 12-31-2015 [facility] ALCALA, [facility] J701 CHRONIC & 12-31-2015 [facility] P MANIF DUE TO RADIATION K208 OTHER 12-31-2015 [facility] ESOPHAGITIS [facility] P K209 ESOPHAGITIS 12-31-2015 [facility] ALCALA, UNSPECIFIED PLLC Z510 ENCOUNTER 12-30-[address] [facility] ANTINEOPLAS TIC RADIATION THERAPY J189 PNEUMONIA 12-22-2015 [facility] UNSPECIFIED HOME ORGANISM MEDICAL EQUIPME D0222 CARCINOMA 12-21-2015 [facility] IN SITU OF PHYSICIANS LEFT GROUP BRONCHUS AND LUNG I252 OLD 12-21-2015 [facility] MYOCARDIAL PHYSICIANS INFARCTION GROUP I340 NONRHEUMATI 12-21-2015 [facility] MITRAL SERV VALVE [facility] INSUFFICIEN CY I361 NONRHEUMATI 12-21-2015 [facility] TRICUSPID SERV VALVE [facility]OUNDATION INSUFFICIEN CY I371 NONRHEUMATI 12-21-2015 [facility] C PULMONARY SERV VALVE FOUNDATION INSUFFICIEN CY R748 ABNORMAL 12-21-2015 [facility] LEVELS OF PHYSICIANS OTHER SERUM GROUP ENZYMES R05 COUGH 12-20-2015 [facility] G893 NEOPLASM 11-30-2015 SCAR OSEGUERA MD, PSC PAIN ACUTE CHRONIC M5116 INTERVERTEB 11-30-2015 [facility] DISC [facility] D/O INC W/RADICULOP ATHY LUMB RGN J42 UNSPECIFIED 10-21-2015 [facility] CHRONIC [facility] BRONCHITIS INC Z129 ENCOUNTER 10-19-2015 [place] SCREENING MEDICAL MALIGNANT IMAGING ASS NEOPLASM SITE UNS N261 ATROPHY OF 10-15-[address] [facility] TERMINAL [id number] PERSONAL 10-04-2015 [facility] NURSE HISTORY OF PRACTITIONE NICOTINE R GR DEPENDENCE J60 COALWORKERS 09-24-2015 [facility] PNEUMOCONIO FOUNDATION SIS J9809 OTHER 09-24-2015 [facility] MEDICAL DISEASES OF SERVICES BRONCHUS NEC R599 ENLARGED 09-24-2015 [facility] LYMPH NODES SERV FOUNDATION UNSPECIFIED Z0000 ENCOUNTER 09-08-2015 [facility] MED EXAM W/O ABNORMAL FIND M549 DORSALGIA 08-24-2015 [facility] UNSPECIFIED PHYSICIANS GROUP R938 ABNORMAL 08-24-2015 [facility] FIND ON DX PHYSICIANS IMAGING OTH GROUP SPEC BODY STRCT M1990 UNSPECIFIED 08-03-2015 [facility] PHYSICIANS OSTEOARTHRI GROUP TIS UNSPECIFIED SITE V75408 PAIN IN 08-03-2015 [facility] UNSPECIFIED PHYSICIANS HIP GROUP R86970 PAIN IN 06-15-2015 [facility] LEFT HIP [facility] INC M533 SACROCOCCYG 06-15-2015 [facility] EAL [facility] DISORDERS INC NEC D07576 PAIN IN 04-05-2015 [place] RIGHT KNEE MEDICAL IMAGING ASS M6751 PLICA 04-05-2015 [facility] SYNDROME [facility] RIGHT KNEE INC Y72853 SPONDYLOSIS 04-01-2015 [facility] W/O SERV MYELOPATH/R FOUNDATION ADICULOPATH Y LUMB RGN M545 LOW BACK 04-01-2015 [facility] PAIN SERV FOUNDATION M7052 OTHER 03-18-2015 [facility] BURSITIS OF PHYSICIANS KNEE LEFT GROUP KNEE I200 UNSTABLE 03-16-2015 [facility]A LAR CONSULTANTS O M1612 UNILATERAL 02-17-2015 [place] PRIMARY [facility]ICAL OSTEOARTHRI IMAGING ASS TIS LEFT HIP M1711 UNILATERAL 02-17-2015 [place] PRIMARY [facility]ICAL OSTEOARTHRI IMAGING ASS TIS RIGHT KNEE S06180 EFFUSION 02-17-2015 [facility]NEE MEDICAL IMAGING ASS R350 FREQUENCY 02-12-2015 [facility] MICTURITION [place] B952 ENTEROCOCCU 02-11-2015 [facility] S CAUSE OF VALLEY DZ INTERNAL CLASSIFIED MED ELSEWHERE G8929 OTHER 02-11-2015 [facility] CHRONIC [place] PAIN INTERNAL MED N390 URINARY 02-11-2015 [facility] TRACT [place]LEY INFECTION INTERNAL SITE NOT MED SPECIFIED M5117 INTERVERTEB 02-10-2015 [place] RAL DISC MEDICAL D/O IMAGING ASS W/RADICULOP ATHY LS RGN M5416 RADICULOPAT 02-10-2015 [facility] HY LUMBAR [facility] REGION INC J209 ACUTE 01-29-2015 [facility] BRONCHITIS VAL[place] UNSPECIFIED INTERNAL MED K219 GASTRO-ESOP 01-29-2015 [facility] H REFLUX VALLEY DISEASE INTERNAL WITHOUT MED ESOPHAGITIS 7246 DISORDERS 12-15-2014 [facility] INC 5990 URINARY 11-10-2014 [facility] INFECTION LABORATORI SITE NOT SPECIFIED 32224 CERV HIGH 11-10-2014 [facility] PAPILLOMAVI [facility]ARE P RADHA DNA TEST POS V7241 11-10-2014 [facility] OR TEST CARE P NEGATIVE RESULT V7612 OTHER 10-15-2014 [place] SCREENING MEDICAL MAMMOGRAM IMAGING ASS V7231 ROUTINE 10-07-2014 [facility] AL EXAMINATION 92171 GENERALIZED 09-25-2014 [facility] ANXIETY RG DISORDER 63748 OBSTRUCTIVE 08-21-2014 [facility] APNEA MEDICAL EQUIPME 49159 CORONARY 07-24-2014 [facility] ATHEROSCLER [place]LEY OSIS SHISHMAREF IRA INTERNAL CORONARY MED ARTERY 496 CHRONIC 07-24-[address] [facility] [address] [place] OBSTRUCTION INTERNAL NEC MED 84637 INSOMNIA 07-24-2014 [facility] UNSPECIFIED VALLEY INTERNAL MED 08125 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 2724 OTHER AND 06-16-2014 [facility] UNSPECIFIED LAR CONSULTANTS HYPERLIPIDE O PAUL 4139 OTHER AND 06-16-2014 [facility] UNSPECIFIED LAR [place] [address] COR 06-16-2014 [facility] ATHEROSLERO LAR UNSPEC CONSULTANTS TYPE VESSEL O SHISHMAREF IRA/BUCK T 7862 COUGH 06-16-2014 [facility] 4111 INTERMEDIAT 06-11-2014 [facility] E CORONARY LAR SYNDROME CONSULTANTS O 412 OLD 06-11-2014 [facility] MYOCARDIAL REGIONAL INFARCTION MEDICAL 22142 CHRONIC 06-10-2014 [facility] WITHOUT MENTION HEPATIC COMA 64392 UNSPEC HTN 06-08-2014 [facility] HEART LAR DISEASE CONSULTANTS WITHOUT O HEART FAIL 21527 ACUT 06-08-2014 [facility] MYOCARD LAR INFARCT UNS CONSULTANTS SITE EPIS O CARE UNS 78274 UNSPECIFIED 05-20-2014 [facility] HEPATITIS C W/O HEPATIC COMA 2883 EOSINOPHILI 05-20-2014 [employer] 7906 OTHER 05-20-2014 [facility] BLOOD CHEMISTRY 56710 ABDOMINAL 02-26-2014 [facility] PAIN, [facility]OS[facility] UNSPECIFIED INC SITE 7948 NONSPECIFIC 02-26-2014 [facility] ABNORMAL [facility] RESULTS INC LIVR FUNCTION STUDY 43774 NAUSEA 01-29-2014 [facility] ALONE [facility] 7905 OTHER 01-29-2014 [place] NONSPECIFIC MEDICAL ABNORMAL IMAGING ASS SERUM ENZYME LEVELS 5739 UNSPECIFIED 01-22-2014 [facility] DISORDER [facility] OF LIVER HOLDINGS 33209 PAIN IN 01-20-2014 [facility] [place] PELVIC INTERNAL REGION AND MED THIGH 4660 ACUTE 09-01-2013 [facility] Medications Na ND Rx Da Fi Fi Am Da Di Ph RX Ph St me C No te ll ll ou ys ag ar # ys at rm s nt no ma ic us Or Da si cy ia de te s n re d ME 57 10 10 45 30 00 CL Ac TO 23 -0 -2 .0 00 IN ti MS 70 2- 7- 00 00 IC ve OL 10 20 20 44 OL 19 17 17 03 PH 9 71 AR TA MA RT CY RA TE 50 MG TA B AZ 50 10 10 6. 5 00 CL Ac IT 11 -0 -2 00 00 IN ti HR 10 4- 7- 0 00 IC ve OM 78 20 20 44 YC 75 17 17 45 PH IN 1 08 AR MA 25 CY 0 MG TA BL ET AM 69 10 10 30 30 00 CL Ac LO 09 -0 -2 .0 00 IN ti DI 70 4- 7- 00 00 IC ve PI 12 20 20 44 NE 71 17 17 45 PH 5 09 AR BE MA SY CY LA TE 5 MG TA B OM 68 09 10 30 30 00 CL Ac EP 46 -2 -2 .0 00 IN ti RA 20 8- 7- 00 00 IC ve ZO 39 20 20 44 LE 60 17 17 40 PH [address] MA CY 20 MG CA PS UL E FA 68 09 10 60 30 00 CL Ac MO 00 -2 -2 .0 00 IN ti TI 10 8- 7- 00 00 IC ve DI 24 20 20 44 NE 00 17 17 40 PH 8 73 AR 20 MA CY MG TA BL ET NI 43 10 10 25 5 00 CL Ac TR 59 -0 -2 .0 00 IN ti OG 80 3- 7- 00 00 IC ve LY 43 20 20 44 CE 61 17 17 26 PH RI 1 52 AR N MA 0. CY 4 MG TA BL ET SL NI 43 09 10 25 8 00 WA Ac TR 59 -1 -1 .0 00 L- ti OG 80 4- 3- 00 07 MA ve LY 43 20 20 50 RT CE 61 17 17 96 RI 1 16 PH N AR 0. MA 4 CY MG #5 TA 91 BL ET SL IS 62 09 10 30 30 00 CL Ac OS 17 -1 -1 .0 00 IN ti OR 50 4- 3- 00 00 IC ve BI 12 20 20 44 DE 83 17 17 26 PH 7 50 AR MN MA CY ER 30 MG TA BL ET FA 68 09 10 30 15 00 CL Ac MO 00 -1 -1 .0 00 IN ti TI 10 4- 3- 00 00 IC ve DI 24 20 20 44 NE 00 17 17 26 PH 8 51 AR 20 MA CY MG TA BL ET MS 00 09 10 39 12 00 CL Ac ED 60 -2 -1 .0 00 IN ti NI 35 0- 3- 00 00 IC ve SO 33 20 20 44 NE 73 17 17 32 PH 5 2 04 AR MA MG CY TA BL ET AC 00 09 10 18 3 00 CL Ac ET 09 -2 -1 .0 00 IN ti AM 30 0- 3- 00 00 IC ve IN 15 20 20 44 OP 01 17 17 32 PH HE 0 48 AR N- MA CO CY D #3 TA BL ET BE 67 09 10 24 4 00 CL Ac NZ 87 -1 -0 .0 00 IN ti ON 70 2- 6- 00 00 IC ve AT 10 20 20 44 AT 50 17 17 23 PH E 1 26 AR 10 MA 0 CY MG CA PS UL E AZ 68 09 10 6. 5 00 CL Ac IT 18 -1 -0 00 00 IN ti HR 00 2- 6- 0 00 IC ve OM 16 20 20 44 YC 01 17 17 23 PH IN 3 25 AR MA 25 CY 0 MG TA BL ET NI 59 09 10 25 5 00 CL Ac TR 76 -1 -0 .0 00 IN ti OG 23 1- 6- 00 00 IC ve LY 30 20 20 43 CE 40 17 17 34 PH RI 3 22 AR N MA 0. CY 4 MG TA BL ET SL GA 43 09 10 40 1 00 WA Ac 38 -1 -0 00 00 L- ti LY 60 3- 6- .0 07 MA ve TE 09 20 20 00 50 RT -G 01 17 17 57 9 77 PH SO AR BRUCE MA TI CY ON #5 91 NI 59 08 09 25 5 00 CL Ac TR 76 -1 -0 .0 00 IN ti OG 23 4- 8- 00 00 IC ve LY 30 20 20 43 CE 40 17 17 34 PH RI 3 22 AR N MA 0. CY 4 MG TA BL ET SL GA 67 07 08 90 30 00 CL Ac BA 87 -3 -2 .0 00 IN ti PE 70 1- 5- 00 00 IC ve NT 22 20 20 43 IN 40 17 17 76 PH 1 04 AR 40 MA 0 CY MG CA PS UL E OM 60 07 08 60 30 00 CL Ac EP 50 -3 -2 .0 00 IN ti RA 50 1- 5- 00 00 IC ve ZO 06 20 20 43 LE 50 17 17 03 PH [address] MA CY 20 MG CA PS UL E GA 67 07 08 21 7 00 CL Ac BA 87 -2 -1 .0 00 IN ti PE 70 2- 8- 00 00 IC ve NT 22 20 20 43 IN 40 17 17 75 PH 1 69 AR 40 MA 0 CY MG CA PS UL E AT 68 07 07 30 30 00 WA Ac OR 64 -0 -2 .0 00 L- ti VA 50 5- 8- [address] 46 20 20 49 RT AT 05 17 17 11 IN 4 48 PH AR 40 MA CY MG #5 TA 91 BL ET ME 57 06 07 45 30 00 CL Ac TO 23 -2 -2 .0 00 IN ti MS 70 6- 1- 00 00 IC ve OL 10 20 20 42 OL 19 17 17 69 PH 9 42 AR TA MA RT CY RA TE 50 MG TA B OM 60 06 07 60 30 00 CL Ac EP 50 -1 -1 .0 00 IN ti RA 50 9- 4- 00 00 IC ve ZO 06 20 20 43 LE 50 17 17 03 PH [address] MA CY 20 MG CA PS UL E GA 67 06 07 90 30 00 CL Ac BA 87 -1 -1 .0 00 IN ti PE 70 9- 4- 00 00 IC ve NT 22 20 20 42 IN 40 17 17 69 PH 1 41 AR 40 MA 0 CY MG CA PS UL E IS 62 06 07 30 30 00 CL Ac OS 17 -0 -0 .0 00 IN ti OR 50 8- 7- 00 00 IC ve BI 12 20 20 43 DE 83 17 17 34 PH 7 21 AR MN MA CY ER 30 MG TA BL ET NI 59 06 07 25 5 00 CL Ac TR 76 -0 -0 .0 00 IN ti OG 23 8- 7- 00 00 IC ve LY 30 20 20 43 CE 40 17 17 34 PH RI 3 22 AR N MA 0. CY 4 MG TA BL ET SL AT 68 06 06 30 30 00 WA Ac OR 64 -0 -3 .0 00 L- ti VA 50 1- 0- [address] 46 20 20 49 RT AT 05 17 17 11 IN 4 48 PH AR 40 MA CY MG #5 TA 91 BL ET ME 57 05 06 45 30 00 CL Ac TO 23 -2 -2 .0 00 IN ti MS 70 5- 3- 00 00 IC ve OL 10 20 20 42 OL 19 17 17 69 PH 9 42 AR TA MA RT CY RA TE 50 MG TA B GA 67 05 06 90 30 00 CL Ac BA 87 -0 -0 .0 00 IN ti PE 70 5- 2- 00 00 IC ve NT 22 20 20 42 IN 40 17 17 69 PH 1 41 AR 40 MA 0 CY MG CA PS UL E OM 60 05 06 60 30 00 CL Ac EP 50 -0 -0 .0 00 IN ti RA 50 5- 2- 00 00 IC ve ZO 06 20 20 43 LE 50 17 17 03 PH [address] MA CY 20 MG CA PS UL E OX 00 05 05 12 30 00 CL Ac YC 60 -0 -2 0. 00 IN ti OD 34 1- 6- 00 00 IC ve ON 99 20 20 0 42 E 02 17 17 97 PH HC 1 67 AR L MA 5 CY MG TA BL ET AZ 68 05 05 6. 5 00 CL Ac IT 18 -0 -2 00 00 IN ti HR 00 1- 6- 0 00 IC ve OM 16 20 20 42 YC 01 17 17 97 PH IN 3 68 AR MA 25 CY 0 MG TA BL ET AL 76 05 05 36 30 00 CL Ac BU 20 -0 -2 0. 00 IN ti TE 40 1- 6- 00 00 IC ve RO 20 20 20 0 42 L 03 17 17 97 PH CHAVARRIA 0 69 AR L MA 2. CY 5 MG /[address] GA 67 03 04 90 30 00 CL Ac BA 87 -3 -2 .0 00 IN ti PE 70 1- 8- 00 00 IC ve NT 22 20 20 42 IN 40 17 17 69 PH 1 41 AR 40 MA 0 CY MG CA PS UL E ME 00 03 04 45 30 00 CL Ac TO 59 -3 -2 .0 00 IN ti MS 10 1- 8- 00 00 IC ve OL 46 20 20 42 OL 21 17 17 69 PH 0 42 AR TA MA RT CY RA TE 50 MG TA B AZ 68 03 04 6. 5 00 CL Ac IT 18 -3 -2 00 00 IN ti HR 00 1- 8- 0 00 IC ve OM 16 20 20 42 YC 01 17 17 69 PH IN 3 43 AR MA 25 CY 0 MG TA BL ET OM 55 03 03 60 30 00 CL Ac EP 11 -0 -3 .0 00 IN ti RA 10 3- 1- 00 00 IC ve ZO 15 20 20 41 LE 81 17 17 80 PH [address] MA CY 20 MG CA PS UL E GA 67 02 03 90 30 00 CL Ac BA 87 -1 -1 .0 00 IN ti PE 70 7- 7- 00 00 IC ve NT 22 20 20 42 IN 40 17 17 26 PH 1 48 AR 40 MA 0 CY MG CA PS UL E ME 68 02 03 60 30 00 WA Ac TO 64 -1 -1 .0 00 L- ti MS 50 6- 7- 00 07 MA ve OL 19 20 20 47 RT OL 05 17 17 12 9 14 PH TA AR RT MA RA CY TE #5 50 91 MG TA B AZ 68 02 03 6. 5 00 CL Ac IT 18 -1 -1 00 00 IN ti HR 00 5- 0- 0 00 IC ve OM 16 20 20 42 YC 01 17 17 23 PH IN 3 73 AR MA 25 CY 0 MG TA BL ET GA 65 01 02 90 30 00 WA Ac BA 16 -1 -1 .0 00 L- ti PE 20 6- 0- 00 07 MA ve NT 10 20 20 36 RT IN 35 17 17 14 0 88 PH 40 AR 0 MA MG CY CA #4 PS 93 UL E OM 60 01 01 60 30 00 CL Ac EP 50 -0 -2 .0 00 IN ti RA 50 3- 7- 00 00 IC ve ZO 06 20 20 41 LE 50 17 17 80 PH [address] MA CY 20 MG CA PS UL E MS 00 12 01 24 24 00 CL Ac OM 60 -2 -2 0. 00 IN ti ET 31 8- 0- 00 00 IC ve DE LA CRUZ 58 20 20 0 41 ZI 65 16 17 75 PH NE 8 10 AR -D MA M CY SY RU P ME 68 12 01 60 30 00 WA Ac TO 64 -2 -2 .0 00 L- ti MS 50 6- 0- 00 07 MA ve OL 19 20 20 45 RT OL 05 16 17 15 9 92 PH TA AR RT MA RA CY TE #5 50 91 MG TA B Procedures Procedure DOS Code Location Performer Comment RAD[facility]OLOGI [address] [facility] [facility] HUFFMAN C EXAM 7 MEDICAL CHEST 2 IMAGING VIEWS ASS FRONTAL&L ATERAL ECG 98755 JANAK GARCÍA ROUTINE 7 PHYSICIAN ECG S, PLLC W/LEAST 12 LDS I&R ONLY LIVER 17217 BILL RONALD ELASTOGRA 7 MEDICAL PHY W/O SERV IMAG FOUNDATIO W/[place] [address] BILL MAHIN ABDOMINAL 7 MEDICAL REAL SERV TIME FOUNDATIO W/IMAGE N DOCUMENTA TION DUP-SCAN [id number] [place] ARTL JULIO 7 HEALTHCAR HEALTHCAR ABDL/PEL/ E E SCROT&/[facility] R ORGN COM UNCLASSIF [id number] [facility] IED DRUGS 7 [place] [address] [facility] UREA 7 [facility] NITROGEN INC INC QUANTITAT KATY CT THORAX 52032 [facility] [place] NAT[facility]EL W/O & 7 MEDICAL W/CONTRAS IMAGING T ASS MATERIAL ECG 37621 [facility] LISA ROUTINE 7 PHYSICIAN ECG S GROUP W/LEAST 12 LDS I&R ONLY ECG 40777 [facility] ROUTINE 7 [facility] ECG INC INC W/LEAST 12 LDS TRCG ONLY W/O I&R CREATININ 25174 [facility] E BLOOD 7 [facility] INC INC ECG 33666 JANAK PULIDO ROUTINE 7 PHYSICIAN ECG S, PLLC W/LEAST 12 LDS I&R ONLY GROUND A0425 ELISSA BOWERS MILEAGE [address] [place] [address] PER AMBULANCE AMBULANCE STATUTE SE SE MILE AMB [id number] ELISSA BOWERS SERVICE [address] [place] [address] ALS AMBULANCE AMBULANCE EMERGENCY SE SE TRANSPORT LEVEL 1 RADIOLOGI 86190 [place] ERROLINEKE C 7 MEDICAL EXAMINATI IMAGING ON CHEST ASS [place] FRONTAL ECG 22350 [facility] ROUTINE 7 [facility] ECG INC INC W/LEAST 12 LDS TRCG ONLY W/O I&R UNCLASSIF [id number] [facility] IED DRUGS 7 [facility] [place] [place] [address] LETHA DUFF JOINT 7 MD MOISE, ARTHRGRP PSC Y&/ANES/S TEROID W/NERY CATH PLMT 64150 [facility] LISA L HRT & 7 PHYSICIAN ARTS S GROUP W/NJX & ANGIO IMG S&I ECG 37406 [facility] ROUTINE 7 [facility] ECG INC INC W/LEAST 12 LDS TRCG ONLY W/O I&R ECG 19398 [facility] ROUTINE 7 [facility] ECG INC INC W/LEAST 12 LDS TRCG ONLY W/O I&R BLOOD 24192 [facility] COUNT 7 [facility] COMPLETE INC INC AUTO&AUTO DIFRNTL WBC CREATINE 60522 [facility] KINASE 7 [facility] TOTAL INC INC UNCLASSIF [id number] [facility] IED DRUGS 7 [facility] INC INC CREATINE 13406 [facility] KINASE MB 7 [facility] [place] [address] [facility] TROPONIN 7 [facility] QUANTITAT INC INC KATY COMPREHEN 87780 [facility] SIVE 7 [facility] [facility] INC INC PANEL LIPID 84754 BAR DINERO PANEL 7 [facility] INC OBSERVATI 65539 [facility] ASHOK ON/INPATI 7 PHYSICIAN ENT S GROUP HOSPITAL CARE 50 MINUTES HOSPITAL [id number] BAR DINERO OBSERVATI 7 [facility] ON INC INC SERVICE PER HOUR RADIOLOGI 25553 BAR DINERO C EXAM 7 [facility] CHEST 2 INC INC VIEWS FRONTAL&L ATERAL RADIOLOGI 52377 CURTIS LR C EXAM 7 MEDICAL CHEST 2 IMAGING VIEWS ASS FRONTAL&L ATERAL ECG 16453 BAR RANGEL ROUTINE 7 [facility] W/LEAST P 12 LDS I&R ONLY GROUND A0425 ELISSA ELISSA MILEAGE [address] [place] [address] PER AMBULANCE AMBULANCE STATUTE SE SE MILE AMB A0427 ELISSA ELISSA SERVICE [address] [place] [address] ALS AMBULANCE AMBULANCE EMERGENCY SE SE TRANSPORT LEVEL 1 COMPREHEN 79649 BAR DINERO SIVNellie 7 [facility] INC INC PANEL COLLECTIO 78645 BAR DINERO N VENOUS 7 [facility] BLOOD INC INC VENIPUNCT URE CT THORAX 12811 BAR DINERO W/O 7 [facility] CONTRAST INC INC MATERIAL BLOOD 54758 BAR DINERO COUNT 7 [facility] COMPLETE INC INC AUTO&AUTO DIFRNTL WBC BLOOD 49308 BAR DINERO COUNT 7 [facility] COMPLETE INC INC AUTO&AUTO DIFRNTL WBC COLLECTIO 16840 BAR DINERO N VENOUS 7 [facility] BLOOD INC INC VENIPUNCT URE COMPREHEN 03054 BAR DINERO SIVE 7 [facility] INC INC PANEL PROTHROMB 35800 BAR DINERO IN TIME 7 [facility] INC INC DUP-SCAN 37545 [place] MICHEL ARTL JULIO 7 MEDICAL ABDL/PEL/ SERV SCROT&/RP FOUNDATIO R ORGN [place] COM 63021 [place] MICHEL ABDOMINAL 7 MEDICAL REAL SERV TIME FOUNDATIO W/[place] [address] [place] ADELINE ABDOMEN & 7 MEDICAL PELVIS IMAGING W/CONTRAS ASS T MATERIAL CT THORAX 84410 [facility]ICAL W/CONTRAS IMAGING T ASS MATERIAL UNCLASSIF J3490 ABR DINERO IED DRUGS 7 [facility] INC INC COLLECTIO 99779 BAR DINERO N VENOUS 7 [facility] BLOOD INC INC VENIPUNCT URE COMPREHEN 76633 BAR DINERO SIVE 7 [facility] METABOLIC INC INC PANEL BLOOD 42370 BAR DINERO COUNT 7 [facility] COMPLETE INC INC AUTO&AUTO DIFRNTL WBC THERAPEUT 27767 [facility] IC 6 PHYSICIAN PHYSICIAN PROPHYLAC S GROUP S GROUP TIC/DX INJECTION SUBQ/IM RADIOLOGI 73289 [place] HUFF[place] ALL C EXAM 6 MEDICAL CHEST 2 IMAGING VIEWS ASS FRONTAL&L ATERAL INJECTION J0696 [facility] FRYMAN 6 PHYSICIAN EUG CEFTRIAXO S GROUP NE SODIUM PER 250 MG BLOOD 24133 BAR DINERO COUNT 6 [facility] COMPLETE INC INC AUTO&AUTO DIFRNTL WBC CT THORAX 69121 [place] HU[place] ALL W/O 6 MEDICAL CONTRAST IMAGING MATERIAL ASS COLLECTIO 59221 BAR DINERO N VENOUS 6 [facility]OS[facility] BLOOD INC INC VENIPUNCT URE COMPREHEN 59650 BAR DINERO SIVE 6 [facility] [place] [address] [place] HU[place] ALL ABDOMEN & 6 MEDICAL PELVIS IMAGING W/O ASS CONTRAST MATERIAL SBSQ [address] 15 MINUTES RADIOLOGI 13836 [place] HUFF[place] ALL C 6 MEDICAL EXAMINATI IMAGING ON CHEST ASS SING[place] FRONTAL INITIAL [address] 30 MINUTES ECG 77349 GAINES CLAIRE ROUTINE [address] [facility] W/LEAST P 12 LDS I&R ONLY RADIATION [address] DELIVERY 1 MEV => COMPLEX RADIATION [address] [place] [address] DELIVERY 1 MEV => COMPLEX RADIATION [address] DELIVERY 1 MEV => COMPLEX RADIATION [id number] [place] [address] DELIVERY 1 MEV => COMPLEX RADIATION [address] [place] [address] Y [facility] DELIVERY 1 MEV => COMPLEX THERAPEUT [address] [place] [address] Y Y RADIOLOGY [facility] PORT IMAGES(S) OBSERVATI 71419 [facility] FRYMAN ON CARE 6 PHYSICIAN EUG DISCHARGE S GROUP MANAGEMEN T UNCLASSIF J3490 BAR DINERO IED DRUGS 6 [facility] INC INC SBS 32897 [facility] 6 PHYSICIAN MAT CARE/DAY S GROUP 15 MINUTES ADMN SET A7003 LUIS F KERNS SM VOL 6 HOME HOME NONFILTR MEDICAL MEDICAL PNEUMAT EQUIPME EQUIPME NEBULIZR DISPBL NEBULIZER E0570 LUIS F KERNS WITH 6 HOME HOME COMPRESSO MEDICAL MEDICAL R EQUIPME EQUIPME INITIAL [address] [place] [address] PHYSICIAN MAT CARE/DAY S GROUP 70 MINUTES SBSQ 64600 BAR PULIDO OBSERVATI 6 [facility] CARE/DAY 15 MINUTES ECHO 42339 BAR DINERO TTHRC R-T 6 [facility] 2D INC INC W/WOM-MOD E COMPL SPEC&COLR D UNCLASSIF J3490 BAR DINERO IED DRUGS 6 [facility] INC INC HOSPITAL G0378 BAR DINERO OBSERVATI 6 [facility] ON INC INC SERVICE PER HOUR HOSPITAL G0378 BAR DINERO OBSERVATI 6 [facility] ON INC INC SERVICE PER HOUR INITIAL 63546 BAR PULIDO OBSERVATI 6 [facility] CARE/DAY 30 MINUTES CULTURE 42165 BAR DINERO BACTERIAL 6 [facility] BLOOD INC INC AEROBIC W/ID ISOLATES SUSCEPTIB 35201 BAR DINERO LTY STDY 6 [facility] ANTIMICRB INC INC IAL MICRO/AGA R DILUTJ RADIOLOGI 01937 [facility] ADE[facility] EXAM 6 MEDICAL SATHISH CHEST 2 IMAGING VIEWS ASS FRONTAL&L ATERAL SMR PRIM 16701 BAR DINERO SRC 6 [facility] GRAM/GIEM INC INC SA STAIN BCT FUNGI/SUSI L COLLECTIO 94596 BAR DINERO N VENOUS 6 [facility] BLOOD INC INC VENIPUNCT URE ECG 41322 BAR RANGEL ROUTINE [address] [facility] W/LEAST P 12 LDS I&R ONLY COMPREHEN 54190 BAR DINERO SIVE 6 [facility] METABOLIC INC INC PANEL UNCLASSIF J3490 BAR DINERO IED DRUGS 6 [facility] INC INC CREATINE 83241 BAR DINERO KINASE MB 6 [facility] [place] [address] BAR DINERO LACTATE 6 [place] [address] BAR DINERO INFUSION 6 [facility] THER INC INC PROPH ADDL SEQUENTIA L TO [address] [place] [address] BAR DINERO AMYLASE 6 [place] [address] BAR DINERO ANGIOGRAP 6 [facility] HY CHEST INC INC W/CONTRAS T/NONCONT RAST CUL BACT 09143 BAR DINERO AEROBIC 6 [facility] ADDL INC INC METHS DEFINITIV E EA ISOL URNLS DIP 86877 BAR DINERO 6 [facility] STICK/TAB INC INC [place] [address] BAR DINERO TROPONIN 6 [facility] QUANTITAT INC INC KATY CREATINE 50374 BAR DINERO KINASE 6 [facility] [place] [address] BAR DINERO LIPASE 6 [facility] INC INC CT THORAX 57019 CURT[place] ADELINE W/O & 6 MEDICAL SATHISH W/CONTRAS IMAGING T ASS MATERIAL ECG 87564 BAR DINERO ROUTINE 6 [facility] ECG INC INC W/LEAST 12 LDS TRCG ONLY W/O I&R BLOOD 49400 BAR DINERO COUNT 6 [facility] COMPLETE INC INC AUTO&AUTO DIFRNTL WBC RADIATION 04234 [facility] 6 Y Y [facility] DELIVERY 1 MEV => COMPLEX RADIATION [address] DELIVERY 1 MEV => COMPLEX RADIATION [address] DELIVERY 1 MEV => COMPLEX RADIATION [address] DELIVERY 1 MEV => COMPLEX CONTINUIN [address] [place] RADIATION [address] DELIVERY 1 MEV => COMPLEX RADIATION [address] DELIVERY 1 MEV => COMPLEX RADIATION [address]77 [address] DELIVERY 1 MEV => COMPLEX COMPREHEN 32063 BAR DINERO SIVE 6 [facility] METABOLIC INC INC PANEL CHEMOTHER 00784 BAR DINERO APY ADMN 6 [facility] IV INC INC INFUSION TQ EA HR CHEMOTX 55852 BAR DINERO ADMN IV 6 [facility] NFS TQ UP INC INC 1 HR SBST/DRUG UNCLASSIF J3490 BAR DINERO IED DRUGS 6 [facility] INC INC CHEMOTX 96783 BAR DINERO ADMN IV 6 [facility] NFS TQ EA INC INC SEQL NFS TO 1 HR BLOOD 92560 BAR DINERO COUNT 6 [facility] COMPLETE INC INC AUTO&AUTO DIFRNTL WBC RADIATION [address] DELIVERY 1 MEV => COMPLEX RADIATION [address] DELIVERY 1 MEV => COMPLEX CONTINUIN [address] [place] WK THER RAD [address] FIELD SETTING SIMPLE RADIATION [address] DELIVERY 1 MEV => COMPLEX RADIATION [address] DELIVERY 1 MEV => COMPLEX THERAPEUT 19281 [facility] 6 Y Y [facility] PORT IMAGES(S) RADIATION 62864 [place] [address] Y Y [facility] DELIVERY 1 MEV => COMPLEX RADIATION 10794 [place] [address] Y Y [facility] DELIVERY 1 MEV => COMPLEX RADIATION 69720 [place] [address] Y Y [facility] DELIVERY 1 MEV => COMPLEX RADIATION 80351 [place] [address] Y Y [facility] DELIVERY 1 MEV => COMPLEX THERAPEUT 59282 [facility] 6 Y Y [facility] PORT IMAGES(S) RADIATION 20236 [place] [address] Y Y [facility] DELIVERY 1 MEV => COMPLEX RADIATION 98369 [place] [address] Y Y [facility] DELIVERY 1 MEV => COMPLEX TELETHX 21832 [facility] [address] [facility] W/[place] [address] [place] [address] Y Y [facility] CONSTRUCT ION COMPLEX RADIATION 83917 [place] [address] Y Y [facility] DELIVERY 1 MEV => COMPLEX THERAPEUT 22171 [facility] 6 Y Y [facility] PORT IMAGES(S) RADIATION 26601 [place] [address] Y Y [facility] DELIVERY 1 MEV => COMPLEX RADIATION 53980 [place] [address] Y Y [facility] DELIVERY 1 MEV => COMPLEX BASIC 92957 BAR DINERO METABOLIC 6 [facility] PANEL INC INC CALCIUM TOTAL CHEMOTHER 62325 BAR DINERO APY ADMN 6 [facility] IV INC INC INFUSION TQ EA HR CHEMOTX 43045 BAR DINERO ADMN IV 6 [facility] NFS TQ UP INC INC 1 HR SBST/DRUG UNCLASSIF J3490 BAR DINERO IED DRUGS 6 [facility] INC INC CHEMOTX 99362 BAR DINERO ADMN IV 6 [facility] NFS TQ EA INC INC SEQL NFS TO 1 HR BLOOD 29565 BAR DINERO COUNT 6 [facility] COMPLETE INC INC AUTO&AUTO DIFRNTL WBC RADIATION 87082 [facility] 6 Y Y [facility] DELIVERY 1 MEV => [place] [address] [facility] DEVICES 6 Y Y DESIGN & [facility] CONSTRUCT ION COMPLEX 3-D 82338 [facility] RADIOTHER [address] [facility] DOSE-VOLU ME HISTOGRAM S THER RAD 01012 [facility] 6 Y Y [facility] FIELD SETTING COMPLEX BRNCDILAT 07745 BAR DINERO RSPSE 6 [facility] SPMTRY INC INC PRE&POST- BRNCDILAT ADMN SPMTRY 10518 [place] JADON W/VC 6 MEDICAL JAM EXPIRATOR SERV Y JULIO FOUNDATIO W/WO MXML N VOL VNTJ GAS 86542 BAR DINERO DILUT/WAS 6 [facility] HOUT LUNG INC INC VOL W/[place] [address] [place] DIOP DIFFUSING 6 MEDICAL JAM CAPACITY SERV FOUNDATIO N PLETHYSMO 20185 [place] DIOP GRAPHY 6 MEDICAL JAM LUNG SERV VOLUMES FOUNDATIO W/WO N AIRWAY RESIST MRI BRAIN 23499 BAR DINERO BRAIN 6 [facility] STEM W/O INC INC W/CONTRAS T MATERIAL UNCLASSIF J3490 BAR DINERO IED DRUGS 6 [facility] INC INC PET 01642 [facility] IMAGING [address] [facility] ATTENUATI ON SKULL BASE MID-THIGH FLUORODEO A9552 [facility] XYGLUCOSE 6 Y Y F-18 FDG [facility] DX UP TO 45 MCI COLLECTIO 34984 BAR DINERO N VENOUS 6 [facility] [place] [address] BAR DINERO UREA 6 [facility] NITROGEN INC INC QUANTITAT KATY CREATININ 94330 BAR DINERO E BLOOD 6 [facility] INC INC ANESTHESI 63421 [place] JAY JAY A CLOSED 6 MEDICAL BIENVENIDO CHEST SERVICES W/BRONCHO SCOPY NOS IMHISTOCH 30988 [place] ABSNER EM/CYTCHM 6 MEDICAL KARAN EA ADDL SERV ANTIBODY FOUNDATIO SLIDE N BRONCHOSC 42066 [place] MASKEY OPY 6 MEDICAL ABDI BRONCHIAL SERV /ENDOBRNC FOUNDATIO L BX 1+ N SITES BRONCHOSC 23853 [place] MASKEY OPY 6 MEDICAL ABDI NEEDLE BX SERV TRACHEA FOUNDATIO MAIN N STEM&/BRO N BRNCHSC 36631 [place] MAS[place] EBUS 6 MEDICAL ABDI GUIDED SERV SAMPL 3/> FOUNDATIO NODE N STATION/S TRUX IMHISTOCH 70638 [place] ABSNER EM/CYTCHM 6 MEDICAL KARAN 1ST SERV ANTIBODY FOUNDATIO STAIN N PROCEDURE CYTP FINE 21235 [place] ABSNER NDL 6 MEDICAL KARAN ASPIRATE SERV IMMT FOUNDATIO CYTOHIST N STD DX 1ST CYTP EVAL 92966 [place] ABSNER FINE 6 MEDICAL KARAN NEEDLE SERV ASPIRATE FOUNDATIO INTERP & [place] [address] [place] ABSNER SURG 6 MEDICAL KARAN PATHOLOGY SERV FOUNDATIO GROSS&RENU N ROSCOPIC EXAM CYTP FINE 84005 [place] ABSNER NDL 6 MEDICAL KARAN ASPIRATE SERV IMMT FOUNDATIO CYTOHIST N STD EA EVAL BRONCHOSC 37147 [place] MASKEY OPY 6 MEDICAL ABDI W/TRANSBR SERV ONCL NDL FOUNDATIO ASPIR BX N EA LOBE ECG 98918 [place] ISABEL ZEV ROUTINE 6 MEDICAL ECG SERV W/LEAST FOUNDATIO 12 LDS N I&R ONLY ECG 81836 UNIVERS UNIVERS ROUTINE 6 Y Y ECG HOSPITAL HOSPITAL W/LEAST 12 LDS TRCG ONLY W/O I&R SPMTRY 04378 [place] DIOP W/VC 6 MEDICAL JAM EXPIRATOR SERV Y JULIO FOUNDATIO W/[place] [address] [place] DIOP DIFFUSING 6 MEDICAL JAM CAPACITY SERV FOUNDATIO N PULMONARY 29987 [place] DIOP STRESS 6 MEDICAL JAM TESTING SERV SIMPLE FOUNDATIO N CT THORAX 37919 CURTIS NORTONINEKE 6 MEDICAL EDWIN W/[place] [address] BAR DINERO UREA 6 [facility] NITROGEN INC INC QUANTITAT KATY COLLECTIO 38569 BAR DINERO N VENOUS 6 [facility] BLOOD INC INC VENIPUNCT URE CREATININ 66035 BAR DINERO E BLOOD 6 [facility] INC INC LIVER 79675 BILL ROSENAU ELASTOGRA 6 MEDICAL KUSH PHY W/O SERV IMAG FOUNDATIO W/I&R N BLOOD 87070 [place] COUNT 6 HEALTHCAR HEALTHCAR COMPLETE E E AUTOMATED [facility] IADNA 07244 COUNT INCLUDES THE [facility] HEPATITIS 6 HEALTHCAR HEALTHCAR C QUANT E E & REVERSE [facility] TRANSCRIP TION COLLECTIO 38847 COUNT INCLUDES THE [facility] N VENOUS 6 [facility]ALTHCAR HEALTHCAR BLOOD E E VENIPUNCT [facility] URE COMPREHEN 02328 COUNT INCLUDES THE [facility] SIVE 6 [facility]ALTH[facility]ALTH[facility] METABOLIC E E PANEL [facility] PROTHROMB 98753 COUNT INCLUDES THE [facility] IN TIME 6 HEALTHCAR HEALTHCAR E E [facility] THERAPEUT 38981 BAR DINERO IC PX 1/> 6 [facility] AREAS INC INC EACH 15 MIN EXERCISES THERAPEUT 91006 BAR DINERO IC PX 1/> 6 [facility] AREAS INC INC EACH 15 MIN EXERCISES THERAPEUT 09761 BAR DINERO IC PX 1/> 6 [facility] AREAS INC INC EACH 15 MIN EXERCISES THERAPEUT 06211 BAR DINERO IC PX 1/> 6 [facility] AREAS INC INC EACH 15 MIN EXERCISES MANUAL 44694 BAR DINERO THERAPY 6 [facility] TQS 1/> INC INC REGIONS EACH 15 MINUTES APPL 73028 BAR DINERO MODALITY 6 [facility] 1/> AREAS INC INC ULTRASOUN D EA 15 MIN THERAPEUT 30583 BAR DINERO IC PX 1/> 6 [facility] AREAS INC INC EACH 15 MIN EXERCISES THERAPEUT 31532 BAR DINERO IC PX 1/> 6 [facility] AREAS INC INC EACH 15 MIN EXERCISES THERAPEUT 11800 BAR DINERO IC PX 1/> 6 [facility] AREAS INC INC EACH 15 MIN EXERCISES THERAPEUT 72981 BAR DINERO IC PX 1/> 6 [facility] AREAS INC INC EACH 15 MIN EXERCISES APPL 00656 BAR DINERO MODALITY 6 [facility] 1/> AREAS INC INC ULTRASOUN D EA 15 MIN MANUAL 12853 BAR DINERO THERAPY 6 [facility] TQS 1/> INC INC REGIONS EACH 15 MINUTES PHYSICAL 31491 BAR DINERO THERAPY 6 [facility] EVALUATIO INC INC N INJECTION J3301 [place] B[place]ON 6 [facility] TRIAMCINO INTERNAL LONE MED ACETONIDE NOS 10 MG THERAPEUT 97375 [place] B[place] IC 6 [facility] PROPHYLAC INTERNAL TIC/DX MED INJECTION SUBQ/IM CREATINE 49696 BAR DINERO KINASE 6 [facility]OS[facility] TOTAL INC INC ECG 63979 BAR DINERO ROUTINE 6 [facility] ECG INC INC W/LEAST 12 LDS TRCG ONLY W/O I&R CREATINE 21135 BAR DINERO KINASE MB 6 [facility]OS[facility] FRACTION INC INC ONLY BLOOD 42966 BAR DINERO COUNT 6 [facility] COMPLETE INC INC AUTO&[place] [address] BAR DINERO TROPONIN 6 [facility] QUANTITAT INC INC KATY COMPREHEN 45873 BAR DINERO SIVE 6 [facility]OS[facility] METABOLIC INC INC PANEL DRUG TEST G0481 BAR DINERO DEFINITV 6 [facility] HOSP DR ID INC INC METH P DAY 8-14 DRUG CL COLLECTIO 02568 BAR DINERO N VENOUS 6 [facility]OS[facility] BLOOD INC INC VENIPUNCT URE ECG 26589 BAR RANGEL ROUTINE 6 [facility] W/LEAST P 12 LDS I&R ONLY RADIOLOGI 06758 CURTIS LR C EXAM 6 MEDICAL SATHISH CHEST 2 IMAGING VIEWS ASS FRONTAL&L ATERAL MRI ANY 48447 [place] ADELINE JT LOWER 5 MEDICAL SATHISH EXTREM IMAGING W/O ASS CONTRAST MATRL SLCTV 50405 CARDIOVAS LISA CATH 5 CULAR MAT 1STORD CONSULTAN W/WO ART TS O PUNCT/FLU OR/S&I MARKOS CATH PLMT 47277 CARDIOVAS LISA L HRT & 5 CULAR MAT ARTS CONSULTAN W/NJX & TS O ANGIO IMG S&I RADIOLOGI 34021 [place] HUFFMAN ALL C 5 MEDICAL EXAMINATI IMAGING ON KNEE 3 ASS VIEWS RADEX HIP 90897 [place] HU[place] ALL 5 MEDICAL UNILATERA IMAGING L ASS COMPLETE MINIMUM 2 VIEWS CULTURE 74618 COMBINED COMBINED BACTERIAL 5 PHYSICIAN PHYSICIAN S LA S LA QUANTTATI VE COLONY COUNT URINE URNLS DIP 36951 [facility] MARTINEZ 5 [facility] STICK/TAB INTERNAL LET RGNT MED NON-AUTO W/O MICRSCP MRI 29131 [place] HU[place] ALL SPINAL 5 MEDICAL CANAL IMAGING LUMBAR ASS W/O CONTRAST MATERIAL 3D 07693 [place] HU[place] ALL RENDERING 5 MEDICAL W/INTERP IMAGING & ASS POSTPROCE SS SUPERVISI ON THERAPEUT 99985 BAR DINERO IC PX 1/> 5 [facility] AREAS INC INC EACH 15 MIN EXERCISES THERAPEUT 27540 BAR DINERO IC PX 1/> 5 [facility] AREAS INC INC EACH 15 MIN EXERCISES APPL 40771 BAR DINERO MODALITY 5 [facility] 1/> AREAS INC INC ULTRASOUN D EA 15 MIN APPL 64353 BAR DINERO MODALITY 5 [facility] 1/> AREAS INC INC ULTRASOUN D EA 15 MIN MANUAL 22765 BAR DINERO THERAPY 5 [facility] TQS 1/> INC INC REGIONS EACH 15 MINUTES THERAPEUT 76828 BAR DINERO IC PX 1/> 5 [facility] AREAS INC INC EACH 15 MIN EXERCISES THERAPEUT 54617 BAR DINERO IC PX 1/> 5 [facility] AREAS INC INC EACH 15 MIN EXERCISES APPL 85522 BAR DINERO MODALITY 5 [facility] 1/> AREAS INC INC IONTOPHOR ESIS EA 15 MIN UNCLASSIF J3490 BAR DINERO IED DRUGS 5 [facility] INC INC UNCLASSIF J3490 BAR DINERO IED DRUGS 5 [facility] INC INC APPL 93842 BAR DINERO MODALITY 5 [facility] 1/> AREAS INC INC IONTOPHOR ESIS EA 15 MIN THERAPEUT 23961 BAR DINERO IC PX 1/> 5 [facility] AREAS INC INC EACH 15 MIN EXERCISES MANUAL 20802 BAR DINERO THERAPY 5 [facility] TQS 1/> INC INC REGIONS EACH 15 MINUTES APPL 11559 [facility] MODALITY 5 [facility] 1/> AREAS INC INC ULTRASOUN D EA 15 MIN APPL 27232 [facility] MODALITY 5 [facility]/> ARE[facility] INC INC ULTRASOUN D EA 15 MIN APPL 05148 [facility] MODALITY 5 [facility] 1/> AREAS INC INC TRACTION MECHANICA L THERAPEUT 58071 [facility] IC PX 1/> 5 [facility] INC EACH 15 MIN EXERCISES THERAPEUT 96707 [facility] IC PX 1/> 5 [facility] INC EACH 15 MIN EXERCISES APPL 86757 [facility] MODALITY 5 [facility] 1/> AREAS INC INC IONTOPHOR ESIS EA 15 MIN UNCLASSIF J3490 [facility] IED DRUGS 5 [facility] APPL 08202 [facility] MODALITY 5 [facility]/> AREAS INC INC ULTRASOUN D EA 15 MIN MANUAL 47882 [facility] THERAPY 5 [facility] TQS 1/> INC INC REGIONS EACH 15 MINUTES MANUAL 11318 [facility] THERAPY 5 [facility] TQS 1/> INC INC REGIONS EACH 15 MINUTES E-STIM G0283 [facility] 1/> AREAS 5 [facility] OT THAN INC INC WND CARE PART TX PLAN THERAPEUT 94496 [facility] IC PX 1/> 5 [facility] INC INC EACH 15 MIN EXERCISES PHYSICAL 22550 [facility] THERAPY 5 [facility] INC INC N CULTURE 33726 [facility] MONTENEGRIN BACTERIAL 5 ESOTERIC ESOTERIC LABORATOR LABORATOR QUANTTATI I I VE COLONY COUNT URINE CUL BACT 47211 [facility] AEROBIC 5 ESOTERIC ESOTERIC ADDL LABORATOR LABORATOR METHS I I DEFINITIV E EA ISOL URINE 35310 ASSOCIATE SARAVIA 5 S FOR III RAJINDER TEST WOMENS VISUAL CARE P COLOR CMPRSN METHS SUSCEPTIB 25309 [facility] LTY STDY 5 ESOTERIC ESOTERIC ANTIMICRB LABORATOR LABORATOR IAL I I MICRO/AGA R DILUTJ COLPOSCOP 85474 ASSOCIATE SARAVIA Y CERVIX 5 S FOR III RAJINDER UPPER/ADJ WOMENS ACENT CARE P VAGINA SCREENING G0202 [place] [facility] 5 MEDICAL MAMMOGRAP IMAGING HY MARKOS ASS INCL CAD WHEN PERFORMD COMPUTER- 22655 [place] [facility] AIDED 5 MEDICAL DETECTION IMAGING ASS SCREENING MAMMOGRAP HY CYTP C/V 91247 [facility], AUTO THIN 5 [facility] LYR PREPJ SCR MNL RESCR PHYS IADNA 12371 [facility], HUMAN 5 [facility] [place] VIRUS HIGH-RISK TYPES CULTURE 26665 M[facility]GR[facility] MONTENEGRIN BACTERIAL 5 ESOTERIC ESOTERIC LABORATOR LABORATOR QUANTTATI I I VE COLONY COUNT URINE CUL BACT 98045 [facility] MONTENE[facility] AEROBIC 5 ESOTERIC ESOTERIC ADDL LABORATOR LABORATOR METHS I I DEFINITIV E EA ISOL SUSCEPTIB 67008 [facility] MONTENE[facility]IN LTY STDY 5 ESOTERIC ESOTERIC ANTIMICRB LABORATOR LABORATOR IAL I I MICRO/AGA R DILUTJ PSYCHOTHE 27778 GLORYRENÉ AUGUST LAUREL RAPY 5 .ORG W/PATIENT 30 MINUTES PSYCHOTHE 64479 BLUEGRASS BLUEGRASS RAPY 5 ADULTS ADULTS W/PATIENT 60 MINUTES CONTINUOU E0601 LUIS F KERNS S 5 HOME HOME POSITIVE MEDICAL MEDICAL AIRWAY EQUIPME EQUIPME PRESSURE DEVICE PSYCHOTHE 25823 HAYES MURPHY 5 ADULTS ADULTS W/PATIENT 30 MINUTES CONTINUOU E0601 LUIS F KERNS S 5 HOME HOME POSITIVE MEDICAL MEDICAL AIRWAY EQUIPME EQUIPME PRESSURE DEVICE HUMDIFIR E0562 LUIS FTYREL KERNS HEATED 5 HOME HOME USED MEDICAL MEDICAL W/POS EQUIPME EQUIPME ARWAY PRESSURE DEVICE HEADGEAR A7035 LUIS F LUIS F USED 5 HOME HOME W/POSITIV MEDICAL MEDICAL E AIRWAY EQUIPME EQUIPME PRESSURE DEVICE TUBING A7037 LUIS FTYREL KERNS USED WITH 5 HOME HOME POSITIVE MEDICAL MEDICAL AIRWAY EQUIPME EQUIPME PRESSURE DEVICE FILTER A7038 LUIS F LUIS F DISPBL 5 HOME HOME USED MEDICAL MEDICAL W/POS EQUIPME EQUIPME ARWAY PRESSURE DEVICE FILTER A7039 LUIS FTYREL KERNS NON 5 HOME HOME DISPBL MEDICAL MEDICAL USED EQUIPME EQUIPME W/POS ARWAY PRESS DEVICE POLYSOM 78799 CARLOS HAIR 6/>YRS 5 SLEEP 4/> ADDL NKECHI ATTND PSYCHOTHE 33820 HAYES NUNESY 5 ADULTS ADULTS W/PATIENT 60 MINUTES POLYSOM 93153 [facility] 6/>YRS 5 [facility] SLEEP 4/> INC INC ADDL NKECHI ATTND RADIOLOGI 94020 [facility] C EXAM 5 [facility] CHEST 2 INC INC VIEWS FRONTAL&L ATERAL ECG 50989 CARDIOVAS LISA ROUTINE 5 CULAR MAT ECG CONSULTAN W/LEAST TS O 12 LDS I&R ONLY ECG 59222 [facility] ROUTINE 5 [facility] ECG INC INC W/LEAST 12 LDS TRCG ONLY W/O I&R INJECTION J1644 LAURA SANCHEZ HEPARIN 5 W W SODIUM REGIONAL REGIONAL PER 1000 MEDICAL MEDICAL UNITS INJECTION J2001 LAURA SOLORZANOVIE 5 W W LIDOCAINE REGIONAL REGIONAL HCL MEDICAL MEDICAL INTRAVENO US INFUS 10 MG CATHETER C1887 LAURA SANCHEZ GUIDING 5 W W REGIONAL REGIONAL MEDICAL MEDICAL COLLECTIO 27254 LAURA SANCHEZ N VENOUS 5 W W BLOOD REGIONAL REGIONAL VENIPUNCT MEDICAL MEDICAL URE BASIC 55939 LAURA SANCHEZ METABOLIC 5 W W PANEL REGIONAL REGIONAL CALCIUM MEDICAL MEDICAL TOTAL INJECTION J2250 LAURA BROOKSWVIE 5 W W MIDAZOLAM REGIONAL REGIONAL HCL PER MEDICAL MEDICAL 1 MG BLOOD 77426 LAURA SANCHEZ COUNT 5 W W COMPLETE REGIONAL REGIONAL AUTO&AUTO MEDICAL MEDICAL DIFRNTL WBC INTRDUCR/ C1766 LAURA SANCHEZ SHEATH 5 W W GUID REGIONAL REGIONAL INTRACARD MEDICAL MEDICAL EP NOT [place] LOCM Q9967 LAURA SANCHEZ 300-399 5 W W MG/ML REGIONAL REGIONAL IODINE MEDICAL MEDICAL CONCENTRA TION PER ML CATH PLMT 76531 CARDIOVAS LISA L HRT & 5 CULAR MAT ARTS CONSULTAN W/NJX & TS O ANGIO IMG S&I INJECTION J3010 LAURA SANCHEZ FENTANYL 5 W W CITRATE REGIONAL REGIONAL 0.1 MG MEDICAL MEDICAL INFUSION J7030 LAURA SANCHEZ NORMAL 5 W W SALINE REGIONAL REGIONAL SOLUTION MEDICAL MEDICAL 1000 CC FLUORESCE 99205 [facility] 5 Y [facility] AGT ANTB SCREEN EA ANTIBODY PROTHROMB 49852 [facility] IN TIME 5 Y Y [facility]OSPITAL [facility]PITAL COLLECTIO 60826 [facility] N VENOUS 5 Y Y BLOOD [facility] VENIPUNCT URE HEPATIC 97708 [facility] FUNCTION 5 Y Y [facility] ECG 62430 CARDIOVAS LISA ROUTINE 5 CULAR MAT ECG CONSULTAN W/LEAST TS O 12 LDS W/I&R PSYCHOTHE 77735 [facility] RAPY 5 ADULTS ADULTS W/PATIENT 45 MINUTES [place] V [address] [place] DARIUS AAN SURG 5 MEDICAL PATHOLOGY SERV FOUNDATIO GROSS&RENU N ROSCOPIC EXAM ABDOM 08835 [facility] PARACENTE 5 Y Y [facility] DX/THER W/IMAGING GUIDANCE BIOPSY 81631 [facility] LIVER 5 Y Y NEEDLE [facility] OUS SPCL STN 94133 BILL MCCOY ANA 2 I&R 5 MEDICAL EXCPT SERV MICROORG/ FOUNDATIO ENZYME/IM N CYT PROTHROMB 28091 [facility] IN TIME 5 [facility] INC INC BLOOD 78014 [facility] COUNT 5 [facility] COMPLETE INC INC AUTO&AUTO DIFRNTL WBC THROMBOPL 85411 [facility] ASTIN 5 [facility] TIME INC INC PARTIAL PLASMA/WH OLE BLOOD COLLECTIO 07362 [facility] N VENOUS 5 [facility] BLOOD INC INC VENIPUNCT URE PSYCHOTHE 89709 [facility] RAP[facility] 5 ADULTS ADULTS W/PATIENT 30 MINUTES APOLIPOPR 92223 [facility] OTEIN 4 [place] [address] [facility] HAPTOGLOB 4 Y Y IN [facility] [place] [address] [facility] NEPHELOME 4 Y Y TR[place] [facility] [place] [address] [facility] GLUTAMYLT 4 Y Y RASE [facility] GAMMA IMMUNOASS 93797 [facility] AY 4 Y Y ANALYTE [facility] QUANTITAT [place]ATY NOS FLUORESCE 11853 [facility] NT 4 Y Y NONNFCT [facility] AGT ANTB SCREEN EA ANTIBODY ANTINUCLE 50168 [facility] AR 4 Y Y ANTIBODIE [facility] S TORRES PROTHROMB 66881 [facility] UNIVERS IN TIME Y Y HOSPITAL HOSPITAL MICROSOMA 09487 [facility] L 4 Y Y ANTIBODIE [facility] S EACH NFCT AGNT 17648 [facility] GENOTYP 4 Y Y NUCLEIC [facility] ACID HEPATITIS C VIRUS COLLECTIO 53968 [facility] N VENOUS 4 Y Y BLOOD [facility] VENIPUNCT URE IADNA 69019 [facility] HEPATITIS 4 Y Y C QUANT [facility] & REVERSE TRANSCRIP TION BLOOD 34899 [facility] UNIVERS[facility] COUNT 4 Y Y COMPLETE [facility] AUTOMATED PSYCHOTHE 28890 [facility] HOLDERGRASS RAPY 4 .ORG .ORG W/PATIENT 45 MINUTES PSYCHOTHE 84562 HAYES KOO RAPY 4 .ORG .ORG W/PATIENT 45 MINUTES HEPATOBIL 94307 [facility] IARY SYST 4 [facility] IMAGING INC INC INCLUDING GALLBLADD ER UNCLASSIF J3490 [facility] IED DRUGS 4 [facility] INC INC PSYCHOTHE 50401 [facility] RAPY 4 ADULTS ADULTS W/PATIENT 45 MINUTES PSYCHIATR 63593 [facility] HOLDERGR[facility] IC 4 ADULTS ADULTS DIAGNOSTI C EVAL W/MEDICAL SERVICES IADNA 48330 [facility] HEPATITIS 4 [facility] C QUANT INC INC & [place] [address] [facility] ABDOMINAL 4 [facility] REAL INC INC TIME W/IMAGE LIMITED ACUTE 63528 [facility] PAT[facility]ICK HEPATITIS 4 BLOSSOM BLOSSOM PANEL [facility] LIPID 49081 COMBINED COMBINED PANEL 4 PHYSICIAN PHYSICIAN S LA S LA COLLECTIO 50338 [facility] N VENOUS 4 [facility] [place] BLOOD INTERNAL VENIPUNCT MED URE COMPREHEN 11033 COMBINED COMBINED SIVE 4 PHYSICIAN PHYSICIAN METABOLIC S LA S LA PANEL HANDLG&/O 18519 [facility] R CONVEY 4 [place] OF SPEC INTERNAL FOR TR MED OFFICE TO LAB BLOOD 33280 COMBINED COMBINED COUNT 4 PHYSICIAN PHYSICIAN COMPLETE S LA S LA AUTO&AUTO DIFRNTL WBC SPMTRY 12324 [facility] W/VC 4 [facility] [place] EXPIRATOR INTERNAL Y JULIO MED W/WO MXML VOL VNTJ Encounters Encounter Start End Date Code Location Performer Type Date EMERGENCY 72373 JANAK SHEPARD 7 7 PHYSICIAN DEPARTDERRELL S, PLLC T VISIT HIGH/URGE NT SEVERITY OFFICE 63510 [facility] SRIVASTAV OUTPATIEN 7 7 PHYSICIAN A T VISIT S GROUP 25 MINUTES EMERGENCY 14317 JANAK GARCÍA DEPT 7 7 PHYSICIAN VISIT S, PLLC HIGH SEVERITY& THREAT FUNCJ OFFICE 98603 [facility] JIM OUTPATIEN 7 7 NURSE T VISIT PRACTITIO 25 NER GR MINUTES HOSPITAL [facility] - 7 7 [facility] OUTPATIEN E T HOSPITALS OFFICE 73239 [facility] LISA OUTPATIEN 7 7 PHYSICIAN T VISIT S GROUP 40 MINUTES HOSPITAL BAR - 7 7 [facility] OUTPATIEN INC T EMERGENCY 23048 [facility] DEPT 7 7 PHYSICIAN VISIT S, PLLC HIGH SEVERITY& THREAT FUNCJ OFFICE 11352 [facility] DIAMOND OUTPATIEN 7 7 NURSE CK T VISIT PRACTITIO 25 NER GR MINUTES OFFICE 42170 [facility] OUTPATIEN 7 7 [facility] T VISIT INC 10 MINUTES OFFICE 67891 LETHA EUGENE OUTPATIEN 7 7 MD MOISE, T VISIT PSC 15 MINUTES HOSPITAL BAR - 7 7 [facility] OUTPATIEN INC T OFFICE 56450 [facility] LAKESHA OUTPATIEN 7 7 PHYSICIAN T VISIT S GROUP 15 MINUTES HOSPITAL BAR - 7 7 [facility] OUTPATIEN INC T HOSPITAL BAR - 7 7 [facility] OUTPATIEN INC T HOSPITAL BAR - 7 7 [facility] OUTPATIEN INC T EMERGENCY 91205 BAR 7 7 [facility] DEPARTMEN INC T VISIT HIGH/URGE NT SEVERITY HOSPITAL BAR - 7 7 [facility] OUTPATIEN INC T EMERGENCY 35625 [facility] DEPT 7 7 PHYSICIAN VISIT S, PLLC HIGH SEVERITY& THREAT FUNCJ OFFICE 06887 [facility] OUTPATIEN 7 7 [facility] T VISIT INC 10 MINUTES OFFICE 26620 LETHA EUGENE OUTPATIEN 7 7 MD MOISE, T VISIT [facility] 15 MINUTES [facility] BAR - 7 7 [facility] OUTPATIEN INC [facility] BAR - 7 7 [facility] OUTPATIEN INC T OFF[facility] 10733 [facility] 7 7 [facility] T VISIT [facility] 15 P MINUTES [facility] BAR - 7 7 [facility] OUTPATIEN INC T OFFICE 79180 K[facility] FERNANDEZ OUTPATIEN 7 7 NURSE T VISIT PRACTITIO 25 NER GR MINUTES OFFICE 52201 [facility] [place] [facility] 7 7 [facility] T [facility] 15 P MINUTES [facility] UK - 7 7 [facility] OUTPATIEN E [facility] UK - 7 7 [facility] OUTPATIEN E HOSPITALS OFFICE 74786 OUTPATIEN 7 7 [facility] T VISIT 5 E [facility] BAR - 7 7 [facility] OUTPATIEN INC T OFFICE 86545 [facility] OUTPATIEN 7 7 [facility] T VISIT INC 10 [facility] BAR - 7 7 [facility] OUTPATIEN INC [facility] BAR - 7 7 [facility] OUTPATIEN INC T OFFICE 10363 [facility] [place] [facility] 6 6 [facility] T [facility] 15 P MINUTES OFFICE 42776 [facility] OUTPATIEN 6 6 PHYSICIAN EUG T VISIT S GROUP 25 [facility] BAR - 6 6 [facility] OUTPATIEN INC T OFFICE 33011 [facility]I 6 6 Y T VISIT 5 [facility] UNIVERSIT - 6 6 Y OUTPATI HOSPITAL T OFFICE 28164 [facility] [place] [facility]PATIEN 6 6 [facility] T VISIT 5 HOSPITAL MINUTES HOSPITAL BAR - 6 6 [facility] 41077 [facility] 6 6 NURSE ANG T VISIT PRACTITIO 25 NER GR MINUTES OFFICE 01320 BAR [facility] 6 6 [facility] T VISIT HOSPITAL 10 P MINUTES EMERGENCY 87806 [facility] DE[facility] 6 6 PHYSICIAN SAMMI VISIT S, [facility] HIGH SEVERITY& THREAT [facility] BAR - 6 6 [facility] INPATIENT [facility] - 6 6 [facility] 6 6 Y [facility] T OFFICE 39270 [facility] 6 6 PHYSICIAN EUG T VISIT S GROUP 15 [facility] UNIVERSIT - 6 6 Y [facility] UNIVERSIT - 6 6 Y [facility] - 6 6 [facility] EM[facility] 57430 BAR DEPT 6 6 [facility] VISIT INC HIGH SEVERITY& THREAT [facility] BAR - 6 6 [facility] 6 6 Y [facility] - 6 6 Y [facility] - 6 6 [facility] 6 6 [facility] 6 6 Y [facility] - 6 6 [facility] 60379 [facility] [address] BAR - 6 6 [facility] - 6 6 [facility] 6 [facility] 06019 BAR [facility] 6 6 [facility] 10 [facility] UNIVERSIT - 6 6 Y [facility] T OFFICE 98410 LETHA VALDIVIANELL [facility] 6 6 MD MOISE, T [address] UNIVERSIT - 6 6 [facility] 6 6 Y [facility] T OFF[facility] 50480 [facility] [place] [facility] [address] UNIVERSIT - 6 6 [facility] 6 [facility] - 6 6 [facility] - 6 6 [facility] - 6 6 [facility] - 6 6 [facility] OFF[facility] 99722 [facility] 6 6 [facility] 10 [facility] - 6 6 [facility] 46356 [facility] 6 6 Y T VISIT 5 [facility] BAR - 6 6 [facility] OUTPATIEN [facility] T OFF[facility] 22103 [place] [facility] [address] BAR - 6 6 [facility] OUTPATIEN [facility] - 6 6 [facility] - 6 6 [facility] OUTPATIEN [facility] T OFFICE 32885 K[facility]I [facility] 6 6 NURSE CK ANIBAL T VISIT PRACTITIO 25 NER GR MINUTES OFFICE 10042 [facility] 6 6 MEDICAL JAM T VISIT SERV 25 FOUNDATIO MINUTES N OFFICE 08162 [facility] 6 6 Y T VISIT 5 [facility] UNIVERSIT - 6 6 [facility] 26701 [facility] 6 6 PHYSICIAN RENU T VISIT S GROUP 15 [facility] BAR - 6 6 [facility] OUTPATIEN INC T OFFICE 17991 [facility] 6 PHYSICIAN RENU T NEW 20 S GROUP [facility] UK - 6 6 [facility] OUTPATIEN E [facility] BAR - 6 6 [facility] OUTPATIEN INC [facility] BAR - 6 6 [facility] OUTPATIEN INC T OFFICE 32252 [facility] [facility] OUTPATIEN 6 6 [facility] T VISIT 5 INTERNAL MINUTES [facility] BAR - 6 6 [facility] OUTPATIEN INC T EMERGENCY 86894 BAR 6 6 [facility] T VISIT MODERATE SEVERITY EMERGENCY 64484 JANAK SHEPARD, DEPT 6 6 PHYSICIAN JR MADERA VISIT S, [facility] HIGH SEVERITY& THREAT [facility] BAR - 5 5 [facility] OUTPATIEN INC T OFFICE 60723 [place] SHASHI PHI CONSULTAT 5 5 MEDICAL ION SERV NEW/ESTAB FOUNDATIO PATIENT N 40 MIN OFFICE 18718 [facility] CANDE OUTPATIGUCCI 5 5 PHYSICIAN YANCI URBINA 30 S [facility] BAR - 5 5 [facility] OUTPATIEN INC T OFFICE 25221 [place] MARTINEZ OUTPATIEN 5 5 [facility] T VISIT INTERNAL 15 [facility] BAR - 5 5 [facility] OUTPATIEN INC T OFFICE 96750 [place] [facility] OUTPATIEN 5 5 [facility] T VISIT INTERNAL 25 MED [facility] BAR - 5 5 [facility] OUTPATIEN INC [facility] BAR - 5 5 [facility] OUTPATIEN INC T OFFICE 27096 ASSOCIATE MANJIT ASTUDILLO 5 5 S FOR III RAJINDER T VISIT WOMENS 15 [facility] BAR - 5 5 [facility] OUTPATIEN INC T INITIAL 33528 ASSOCIATE EMMY ALLEN PREVENTIV 5 5 S FOR [facility] NEW PATIENT 40-64YRS OFFICE 66164 [place] USERY AND OUTPATIEN 5 5 [place] T VISIT INTERNAL 15 MED MINUTES HOSPITAL BAR - 5 5 [facility] 5 5 [facility] 07918 CARDIOVAS LISA OUTPATIEN 5 5 CULAR MAT T VISIT CONSULTAN 25 TS O MINUTES HOSPITAL MEADOWVIE - 5 5 [facility] T [facility] - 5 5 Y [facility] T OFFICE 98432 [place] [facility] 5 5 [facility] T VISIT SERV ACH 15 FOUNDATIO MINUTES N OFFICE 07917 CARDIOVAS LISA OUTPATIEN 5 5 CULAR MAT T NEW 60 CONSULTAN MINUTES TS O OFFICE 10347 [facility] OUTPATIEN 5 5 ADULTS ADULTS T VISIT 15 MINUTES [facility] UNIVERSIT - 5 5 Y [facility] BAR - 5 5 [facility] UNIVERSIT - 4 4 Y [facility] T OFFICE 09142 [facility] OUTPATIEN 4 4 .ORG .ORG T VISIT 15 MINUTES HOSPITAL BAR - 4 4 [facility] 4 4 [facility] OFF[facility] 59765 [place] [facility] OUT[facility]IEN 4 4 [facility] T VISIT 5 INTERNAL MINUTES MED OFFICE 09127 [facility] [facility] OUTPATIEN 4 4 [facility] T NEW 45 INTERNAL MINUTES MED EMERGENCY 47774 [facility] INC MARY ANNE 4 4 [facility] EMERGENCY T VISIT PHYS MODERATE SEVERITY
--- OUTSIDE RECORDS SUMMARY | 2017-02-09 17:13 | External Medical Summary Rpt | CCD ---
Author Author , GAUDENCIO Organization GAUDENCIO Address Unknown Phone [email or web address] Care Team Providers Care Manufacturer Agent Name Role Phone ABSNER KARAN, ABSNER Unavailable Unavailable KARAN [facility] Unavailable Unavailable LABORATORI, [facility] Unavailable Unavailable LABORATORI, [facility] LETHA PHIPPS MD, PSC, Unavailable [...] BIENVENIDO, JAY JAY Unavailable Unavailable BIENVENIDO ADELINE, ADELINE Unavailable Unavailable ADELINE SATHISH, Unavailable Unavailable ADELINE SATHISH MAHIN, MAHIN Unavailable Unavailable KAYKAY, KAYKAY Unavailable Unavailable KAYKAY PHI, Unavailable Unavailable KAYKAY PHI DUFF, DUFF Unavailable Unavailable LUGO, Unavailable Unavailable LUGO LUGO ANIBAL, Unavailable Unavailable LUGO ANIBAL FRYMAN, FRYMAN Unavailable Unavailable FRYMAN EUG, FRYMAN Unavailable Unavailable EUG JR DREA, DREA, Unavailable Unavailable JR CASSY MEDLEY, Unavailable Unavailable JR CASSY SHEPARD ASHOK, ASHOK Unavailable Unavailable ASHOK RENU, ASHOK Unavailable Unavailable RENU SARAVIA III RAJINDER, Unavailable Unavailable SARAVIA III RAJINDER AUGUST LAUREL, AUGUST LAUREL Unavailable Unavailable [facility] Unavailable Unavailable INC, [facility] Unavailable Unavailable HOSPITAL P, [facility] P JIM FERNANDEZ Unavailable Unavailable JIM ANG, JIM Unavailable Unavailable ANG [facility], Unavailable Unavailable [facility] ISABEL ZEV, ISABEL ZEV Unavailable Unavailable LE MARY ANNE, LE MARY ANNE Unavailable Unavailable JUETT TIFFANY, EMMY TIFFANY Unavailable Unavailable [facility] Un[facility], [facility] KM NURSE Unavailable Unavailable PRACTITIONER GR, KMSF NURSE PRACTITIONER GR [facility] Un[facility], Unavailable Unavailable [facility] Unavailable Unavailable [facility], [facility] Unavailable Unavailable [facility], [facility] DARIUS ANA, DARIUS ANA Unavailable Unavailable [facility] Unavailable Unavailable [facility], [facility] MASKEY ABDI, MASKEY Unavailable Unavailable ABDI DIOP JAM, Unavailable Unavailable DIOP JAM [facility] Unavailable Unavailable MEDICAL, [facility] MEDICAL MICHEL, MICHEL Unavailable Unavailable [facility] Unavailable Unavailable AMBULANCE SE, [facility] Unavailable [...] Unavailable Unavailable [facility] Unavailable Unavailable HOSPITALS, [facility], Unavailable Unavailable [facility], [facility] AND Unavailable Unavailable Purpose Continuity of Care Document - 09-01-2013 through 2016 Problems Code Diagnosis DOS Provider Status 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, UNSPECIFIED , UNCOMPLICAT ED F41.9 ANXIETY 02-02-2017 DISORDER, UNSPECIFIED I10 ESSENTIAL 02-02-2017 (PRIMARY) HYPERTENSIO N K21.9 GASTRO-ESOP 02-02-2017 [facility]AGE[facility] REFLUX DISEASE WITHOUT ESOPHAGITIS R07.9 CHEST PAIN, 02-02-2017 UNSPECIFIED 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 M5442 LUMBAGO 01-02-2017 [facility] WITH PHYSICIANS, [facility] LEFT SIDE C3490 MALIGNANT 12-28-2016 [facility] NEOPLASM PHYSICIANS UNS PART GROUP UNS BRONCHUS/BRUCE NG I119 HYPERTENSIV 12-28-2016 [facility] E HEART PHYSICIANS DISEASE GROUP WITHOUT HEART FAILURE I2510 ASHD INUPIAT 12-28-2016 [facility] CORONARY PHYSICIANS ARTERY W/O GROUP ANGINA PECTORIS J449 CHRONIC 12-28-2016 [facility] OBSTRUCTIVE PHYSICIANS PULMONARY GROUP DISEASE UNS R0789 OTHER CHEST 12-28-2016 [facility] PAIN PHYSICIANS GROUP R9431 ABNORMAL 12-28-2016 [facility] ELECTROCARD PHYSICIANS IOGRAM GROUP R0600 DYSPNEA 12-26-2016 [facility]PEC[facility] R079 CHEST PAIN 12-26-2016 [facility] UNSPECIFIED [facility]ICAL IMAGING ASS R918 OTHER 12-26-2016 [facility] NONSPECIFIC MEDICAL ABNORMAL IMAGING ASS FINDING OF LUNG FIELD Z9114 PATIENTS 12-26-2016 [facility] PHYSICIANS, NONCOMPLIAN PLL CE W/MEDICATIO N REGIMEN B182 CHRONIC 12-07-2016 [facility] HEPATITIS [facility] B1920 UNS VIRAL 12-01-2016 [facility]IS [facility] SERV WITHOUT FOUNDATION HEPATIC COMA I10 ESSENTIAL 11-02-2016 [facility] HYPERTENSIO INC N I208 OTHER FORMS 11-02-2016 [facility] OF ANGINA PHYSICIANS PECTORIS GROUP J439 EMPHYSEMA 11-02-2016 [facility] UNSPECIFIED [facility]ICAL IMAGING ASS J90 PLEURAL 11-02-2016 [facility] EFFUSION MEDICAL NOT IMAGING ASS ELSEWHERE CLASSIFIED R0602 SHORTNESS 11-02-2016 [facility] OF BREATH PHYSICIANS GROUP R222 LOCALIZED 11-02-2016 [facility]WELLING [facility] MASS AND INC LUMP TRUNK M461 SACROILIITI 10-10-2016 [facility] S NOT [facility] ELSEWHERE INC CLASSIFIED M5136 OTH 10-10-2016 ALISSA OSEGUERA MD, PSC RAL DISC DEGEN LUMBAR REGION M791 MYALGIA 10-10-2016 [facility] INC C3432 MALIGNANT 10-05-2016 [facility] NEOPLASM PHYSICIANS LOWER LOBE GROUP LT BRONCHUS/BRUCE NG I214 NON-ST 10-05-2016 [facility] ELEVATION PHYSICIANS MYOCARDIAL GROUP INFARCTION E785 HYPERLIPIDE 09-21-2016 [facility] UNSPECIFIED INC I229 SUBSEQUENT 09-15-[address] [facility] [address] ELEV PHYSICIANS MYOCARDIAL GROUP INFARCT UNS SITE A77105 ASHD INUPIAT 09-15-2016 [facility] COR ART PHYSICIANS W/OTH FORMS GROUP ANGINA PECTORIS I209 ANGINA 09-14-2016 [facility] PECTORIS [facility] UNSPECIFIED INC I249 ACUTE 09-10-2016 [facility] ISCHEMIC [facility] HEART INC DISEASE UNSPECIFIED Z720 TOBACCO USE 09-10-2016 [facility] INC C3492 MALIGNANT 08-11-2016 [facility] NEOPLASM [facility] UNS PART INC LEFT BRONCHUS/BRUCE NG I313 PERICARDIAL 08-11-2016 [facility] [place] EFFUSION MEDICAL NONINFLAMMA IMAGING ASS TORY R932 ABNORMAL 06-01-2016 [facility] NURSE FIND ON DX PRACTITIONE IMAGING R GR LIVER & BILI TRACT K829 DISEASE OF 05-24-2016 [facility] GALLBLADDER SERV FOUND[facility] UNSPECIFIED N289 DISORDER OF 05-24-2016 [place] [facility] UNSPECIFIED Z08 ENCOUNTER 05-10-2016 F/U EXAM [facility]ALTHCARE AFTER [facility] NEOPLASM Z16499 PERSONAL HX 05-10-2016 [facility] NEOPLASM HOSPITALS BRONCHUS & LUNG R530 NEOPLASTIC 04-26-2016 [facility] MALIGNANT [facility] RELATED INC FATIGUE R911 SOLITARY 04-26-2016 [facility] [place] PULMONARY MEDICAL NODULE IMAGING ASS J40 BRONCHITIS 03-02-2016 [facility] [place] NOT MEDICAL SPECIFIED IMAGING ASS ACUTE OR CHRONIC E860 DEHYDRATION 12-31-2015 JANAK ALCALA, [facility] J701 CHRONIC & 12-31-2015 [facility] P MANIF DUE TO RADIATION K208 OTHER 12-31-2015 [facility] ESOPHAGITIS [facility] P K209 ESOPHAGITIS 12-31-2015 JANAK ALCALA, UNSPECIFIED PLLC Z510 ENCOUNTER 12-30-2015 [facility] ANTINEOPLAS TIC RADIATION THERAPY J189 PNEUMONIA 12-22-2015 [facility] F UNSPECIFIED HOME ORGANISM MEDICAL EQUIPME D0222 CARCINOMA 12-21-2015 [facility] IN SITU OF PHYSICIANS LEFT GROUP BRONCHUS AND LUNG I252 OLD 12-21-2015 [facility] MYOCARDIAL PHYSICIANS INFARCTION GROUP I340 NONRHEUMATI 12-21-2015 [facility] MITRAL SERV VALVE [facility]OUND[facility] INSUFFICIEN CY I361 NONRHEUMATI 12-21-2015 [facility] TRICUSPID SERV VALVE [facility]OUND[facility] INSUFFICIEN CY I371 NONRHEUMATI 12-21-2015 [facility] PULMONARY SERV VALVE [facility]OUND[facility] INSUFFICIEN CY R748 ABNORMAL 12-21-2015 [facility] LEVELS OF PHYSICIANS OTHER SERUM GROUP ENZYMES R05 COUGH 12-20-2015 [facility] G893 NEOPLASM 11-30-2015 SCAR OSEGUERA MD, PSC PAIN ACUTE CHRONIC M5116 INTERVERTEB 11-30-2015 [facility] R[facility] DISC [facility] D/O INC W/RADICULOP ATHY LUMB RGN J42 UNSPECIFIED 10-21-2015 [facility] CHRONIC [facility] BRONCHITIS INC Z129 ENCOUNTER 10-19-2015 [facility] [place] SCREENING MEDICAL MALIGNANT IMAGING ASS NEOPLASM SITE UNS N261 ATROPHY OF 10-15-2015 [facility] TERMINAL B71959 PERSONAL 10-04-2015 [facility] NURSE HISTORY OF PRACTITIONE NICOTINE R GR DEPENDENCE J60 COALWORKERS 09-24-2015 [facility] PNEUMOCONIO FOUNDATION SIS J9809 OTHER 09-24-2015 [facility] DISEASES OF SERVICES BRONCHUS NEC R599 ENLARGED 09-24-2015 [facility] LYMPH NODES SERV [facility] UNSPECIFIED Z0000 ENCOUNTER 09-08-2015 [facility] MED EXAM W/O ABNORMAL FIND M549 DORSALGIA 08-24-2015 [facility] UNSPECIFIED PHYSICIANS GROUP R938 ABNORMAL 08-24-2015 [facility] FIND ON DX PHYSICIANS IMAGING OTH GROUP SPEC BODY STRCT M1990 UNSPECIFIED 08-03-2015 [facility] PHYSICIANS OSTEOARTHRI GROUP TIS UNSPECIFIED SITE U89866 PAIN IN 08-03-2015 [facility] UNSPECIFIED PHYSICIANS HIP GROUP T69792 PAIN IN 06-15-2015 [facility] LEFT HIP [facility] INC M533 SACROCOCCYG 06-15-2015 [facility] EAL [facility] DISORDERS INC NEC F92928 PAIN IN 04-05-2015 [facility] [place] RIGHT KNEE MEDICAL IMAGING ASS M6751 PLICA 04-05-2015 [facility] SYNDROME [facility] RIGHT KNEE INC L18694 SPONDYLOSIS 04-01-2015 [facility] W/O SERV MYELOPATH/R FOUNDATION ADICULOPATH Y LUMB RGN M545 LOW BACK 04-01-2015 [facility] PAIN [facility] M7052 OTHER 03-18-2015 [facility] BURSITIS OF PHYSICIANS KNEE LEFT GROUP KNEE I200 UNSTABLE 03-16-2015 [facility] O M1612 UNILATERAL 02-17-2015 [facility] [place] PRIMARY MEDICAL OSTEOARTHRI IMAGING ASS TIS LEFT HIP M1711 UNILATERAL 02-17-2015 [place] [place] PRIMARY MEDICAL OSTEOARTHRI IMAGING ASS TIS RIGHT KNEE Q30143 EFFUSION 02-17-2015 [facility] RIGHT KNEE MEDICAL IMAGING ASS R350 FREQUENCY 02-12-2015 [facility] PH[facility]ICI[facility] MICTURITION [place] B952 ENTEROCOCCU 02-11-2015 [facility] S CAUSE OF VALLEY DZ INTERNAL CLASSIFIED MED ELSEWHERE G8929 OTHER 02-11-2015 [facility] CHRONIC VAL[place] PAIN INTERNAL MED N390 URINARY 02-11-2015 [facility] TRACT [place]LEY INFECTION INTERNAL SITE NOT MED SPECIFIED M5117 INTERVERTEB 02-10-2015 [facility] RAL DISC MEDICAL D/O IMAGING ASS W/RADICULOP ATHY LS RGN M5416 RADICULOPAT 02-10-2015 [facility] HY LUMBAR [facility] REGION INC J209 ACUTE 01-29-2015 [facility] BRONCHITIS VAL[place] UNSPECIFIED INTERNAL MED K219 GASTRO-ESOP 01-29-2015 [facility] H REFLUX VALLEY DISEASE INTERNAL WITHOUT MED ESOPHAGITIS 7246 DISORDERS 12-15-2014 [facility] INC 5990 URINARY 11-10-2014 [facility] LABOR[facility] SITE NOT SPECIFIED 10008 CERV HIGH 11-10-2014 [facility] PAPILLOMAVI CARE P RADHA DNA TEST POS V7241 11-10-2014 [facility] EXAMINATION FOR WOMENS OR TEST CARE P NEGATIVE RESULT V7612 OTHER 10-15-2014 [place] SCREENING MEDICAL MAMMOGRAM IMAGING ASS V7231 ROUTINE 10-07-2014 [facility] AL EXAMINATION 94415 GENERALIZED 09-25-2014 [facility] ANXIETY RG DISORDER 97731 OBSTRUCTIVE 08-21-2014 [facility] SLEEP HOME APNEA MEDICAL EQUIPME 75578 CORONARY 07-24-2014 [facility] ATHEROSCLER VALLEY OSIS INUPIAT INTERNAL CORONARY MED ARTERY 496 CHRONIC 07-24-[address] [facility] [address] [place] OBSTRUCTION INTERNAL NEC MED 40420 INSOMNIA 07-24-2014 [facility] UNSPECIFIED VALLEY INTERNAL MED 53185 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 2724 OTHER AND 06-16-2014 [facility] UNSPECIFIED LAR CONSULTANTS HYPERLIPIDE O PAUL 4139 OTHER AND 06-16-2014 [facility] UNSPECIFIED LAR [place] [address] COR 06-16-2014 [facility] ATHEROSLERO LAR UNSPEC CONSULTANTS TYPE VESSEL O INUPIAT/BUCK T 7862 COUGH 06-16-2014 [facility] 4111 INTERMEDIAT 06-11-2014 [facility] E CORONARY LAR SYNDROME CONSULTANTS O 412 OLD 06-11-2014 [facility] MYOCARDIAL REGIONAL INFARCTION MEDICAL 26182 CHRONIC 06-10-2014 [facility] WITHOUT MENTION HEPATIC COMA 86804 UNSPEC HTN 06-08-2014 [facility] HEART LAR DISEASE CONSULTANT[facility] WITHOUT O HEART FAIL 05630 ACUT 06-08-2014 [facility] MYOCARD LAR INFARCT UNS CONSULTANTS SITE EPIS O CARE UNS 48164 UNSPECIFIED 05-20-2014 [facility] HEPATITIS C W/O HEPATIC COMA 2883 EOSINOPHILI 05-20-2014 [facility] 7906 OTHER 05-20-2014 [facility] BLOOD CHEMISTRY 51719 ABDOMINAL 02-26-2014 [facility] PAIN, [facility] UNSPECIFIED INC SITE 7948 NONSPECIFIC 02-26-2014 [facility] ABNORMAL [facility] RESULTS INC LIVR FUNCTION STUDY 03731 NAUSEA 01-29-2014 [facility] [place] ALONE MEDICAL IM[facility]ING ASS 7905 OTHER 01-29-2014 [place] NONSPECIFIC MEDICAL ABNORMAL IMAGING ASS SERUM ENZYME LEVELS 5739 UNSPECIFIED 01-22-2014 [facility] DISORDER BLOSSOM OF LIVER HOLDINGS 60858 PAIN IN 01-20-2014 [facility] [place] PELVIC [...] 23 -0 -2 .0 00 IN ti MO 70 2- 7- 00 00 IC ve [...] 20 MA CY MG TA BL ET MO 00 09 10 39 12 00 CL [...] 23 -2 -2 .0 00 IN ti MO 70 6- 1- 00 00 IC ve [...] 23 -2 -2 .0 00 IN ti MO 70 5- 3- 00 00 IC ve [...] 59 -3 -2 .0 00 IN ti MO 10 1- 8- 00 00 IC ve [...] 64 -1 -1 .0 00 L- ti MO 50 6- 7- 00 07 MA ve [...] CY 20 MG CA PS UL E MO 00 12 01 24 24 00 CL [...] 64 -2 -2 .0 00 L- ti MO 50 6- 0- 00 07 MA ve OL 19 20 20 45 RT OL 05 16 17 15 9 92 PH TA AR RT MA RA CY TE #5 50 91 MG TA B Procedures Procedure DOS Code Location Performer Comment RAD[facility]OLOGI 53329 [facility] C EXAM 7 MEDICAL CHEST 2 IMAGING VIEWS ASS FRONTAL&L ATERAL ECG 30553 JANAK GARCÍA ROUTINE 7 PHYSICIAN ECG S, PLLC W/LEAST 12 LDS I&R ONLY LIVER 79238 BILL RONALD ELASTOGRA 7 MEDICAL PHY W/O SERV IMAG FOUNDAT[place] W/[place] [address] BILL MAHIN ABDOMINAL 7 MEDICAL REAL SERV TIME FOUNDATIO W/IMAGE N DOCUMENTA TION DUP-SCAN 55352 [place] [facility] ARTL JULIO 7 HEALTHCAR HEALTHCAR ABDL/PEL/ E E SCROT&/[facility] R ORGN COM UNCLASSIF J3490 [facility] IED DRUGS 7 [place] [address] [facility] UREA 7 [facility] NITROGEN INC INC QUANTITAT KATY CT THORAX 45104 [facility] NAT[facility] W/O & 7 MEDICAL W/CONTRAS IMAGING T ASS MATERIAL ECG 11883 [facility] LISA ROUTINE 7 PHYSICIAN ECG S GROUP W/LEAST 12 LDS I&R ONLY ECG 99809 [facility] ROUTINE 7 [facility] ECG INC INC W/LEAST 12 LDS TRCG ONLY W/O I&R CREATININ 42628 [facility] E BLOOD 7 [facility] INC INC ECG 51564 JANAK PULIDO ROUTINE 7 PHYSICIAN ECG S, PLLC W/LEAST 12 LDS I&R ONLY GROUND A0425 ELISSA BOWERS MILEAGE [address] [place] [address] PER AMBULANCE AMBULANCE STATUTE SE SE MILE AMB A0427 ELISSA BOWERS SERVICE [address] [place] [address] ALS AMBULANCE AMBULANCE EMERGENCY SE SE TRANSPORT LEVEL 1 RADIOLOGI 88474 [place] ERROLINEKE C 7 MEDICAL EXAMINATI IMAGING ON CHEST ASS [place] FRONTAL ECG 13879 [facility] ROUTINE 7 [facility] ECG INC INC W/LEAST 12 LDS TRCG ONLY W/O I&R UNCLASSIF J3490 [facility] IED DRUGS 7 [place] [address] LETHA DUFF JOINT 7 MD MOISE, ARTHRGRP PSC Y&/ANES/S TEROID W/NERY CATH PLMT 56190 [facility] LISA L HRT & 7 PHYSICIAN ARTS S GROUP W/NJX & ANGIO IMG S&I ECG 49748 [facility] ROUTINE 7 [facility] ECG INC INC W/LEAST 12 LDS TRCG ONLY W/O I&R ECG 77294 [facility] ROUTINE 7 [facility] ECG INC INC W/LEAST 12 LDS TRCG ONLY W/O I&R BLOOD 69377 [facility] COUNT 7 [facility] COMPLETE INC INC AUTO&AUTO DIFRNTL WBC CREATINE 51263 [facility] KINASE 7 [facility] TOTAL INC INC UNCLASSIF J3490 [facility] IED DRUGS 7 [facility] INC INC CREATINE 72095 [facility] KINASE MB 7 [facility] [place] [address] [facility] TROPONIN 7 [facility] QUANTITAT INC INC KATY COMPREHEN 86106 [facility] SIVE 7 [facility] METABOLIC INC INC PANEL LIPID 61599 [facility] PANEL 7 [facility] INC INC OBSERVATI 01870 [facility] ASHOK ON/INPATI 7 PHYSICIAN ENT S GROUP HOSPITAL CARE 50 MINUTES HOSPITAL G0378 [facility] OBSERVATI 7 [facility] ON INC INC SERVICE PER HOUR RADIOLOGI 81877 [facility] C EXAM 7 [facility] CHEST 2 INC INC VIEWS FRONTAL&L ATERAL RADIOLOGI 64567 CURT[facility] LR C EXAM 7 MEDICAL CHEST 2 IMAGING VIEWS ASS FRONTAL&L ATERAL ECG 87798 BAR RANGEL ROUTINE 7 [facility] W/LEAST P 12 LDS I&R ONLY GROUND A0425 ELISSA ELISSA MILEAGE [address] [place] [address] PER AMBULANCE AMBULANCE STATUTE SE SE MILE AMB A0427 ELISSA ELISSA SERVICE [address] [place] [address] ALS AMBULANCE AMBULANCE EMERGENCY SE SE TRANSPORT LEVEL 1 COMPREHEN 27571 [facility] SIVNellie 7 [facility] METABOLIC INC INC PANEL COLLECTIO 78664 [facility] N VENOUS 7 [facility] BLOOD INC INC VENIPUNCT URE CT THORAX 11516 [facility] W/O 7 [facility] CONTRAST INC INC MATERIAL BLOOD 38683 [facility] COUNT 7 [facility] COMPLETE INC INC AUTO&AUTO DIFRNTL WBC BLOOD 36694 [facility] COUNT 7 [facility] COMPLETE INC INC AUTO&AUTO DIFRNTL WBC COLLECTIO 13757 [facility] N VENOUS 7 [facility] BLOOD INC INC VENIPUNCT URE COMPREHEN 52686 [facility] SIVE 7 [facility] METABOLIC INC INC PANEL PROTHROMB 14558 [facility] IN TIME 7 [facility] INC INC DUP-SCAN 66787 [place] [facility] ARTL JULIO 7 MEDICAL ABDL/PEL/ SERV SCROT&/RP FOUNDATIO R ORGN N COM 96537 [place] [facility] ABDOMINAL 7 MEDICAL REAL SERV TIME FOUNDATIO W/[place] [address] [place] ADELINE ABDOMEN & 7 MEDICAL PELVIS IMAGING W/CONTRAS ASS T MATERIAL CT THORAX 95661 [facility] MEDICAL W/CONTRAS IMAGING T ASS MATERIAL UNCLASSIF J3490 [facility] IED DRUGS 7 [facility] INC INC COLLECTIO 91971 [facility] N VENOUS 7 [facility] BLOOD INC INC VENIPUNCT URE COMPREHEN 23782 [facility] SIVE 7 [facility] METABOLIC INC INC PANEL BLOOD 79747 [facility] COUNT 7 [facility] COMPLETE INC INC AUTO&AUTO DIFRNTL WBC THERAPEUT 42183 [facility] IC 6 PHYSICIAN PHYSICIAN PROPHYLAC S GROUP S GROUP TIC/DX INJECTION SUBQ/IM RADIOLOGI 51350 [place] HUFFMAN ALL C EXAM 6 MEDICAL CHEST 2 IMAGING VIEWS ASS FRONTAL&L ATERAL INJECTION J0696 [facility] FRYMAN 6 PHYSICIAN EUG CEFTRIAXO S GROUP NE SODIUM PER 250 MG BLOOD 46179 [facility] COUNT 6 [facility] COMPLETE INC INC AUTO&AUTO DIFRNTL WBC CT THORAX 93959 [place] HUFFMAN ALL W/O 6 MEDICAL CONTRAST IMAGING MATERIAL ASS COLLECTIO 15229 [facility] N VENOUS 6 [facility] BLOOD INC INC VENIPUNCT URE COMPREHEN 25096 [facility] SIVE 6 [facility] [address] [place] HUFFMAN ALL ABDOMEN & 6 MEDICAL PELVIS IMAGING W/O ASS CONTRAST MATERIAL SBSQ [address] 15 MINUTES RADIOLOGI 94922 [place] HUFFMAN ALL C 6 MEDICAL EXAMINATI IMAGING ON CHEST ASS SING[place] FRONTAL INITIAL [address] 30 MINUTES ECG 85742 [facility] ROUTINE 6 [facility] W/LEAST P 12 LDS I&R ONLY RADIATION [address] DELIVERY 1 MEV => COMPLEX RADIATION [address] [place] [address] DELIVERY 1 MEV => COMPLEX RADIATION [address] DELIVERY 1 MEV => COMPLEX RADIATION [id number] [place] [address] DELIVERY 1 MEV => COMPLEX RADIATION [address]8939 [place] [address] Y [facility] DELIVERY 1 MEV => COMPLEX THERAPEUT 10023 [place] [address] Y Y RADIOLOGY [facility] PORT IMAGES(S) OBSERVATI 16415 [facility]YMAN ON CARE 6 PHYSICIAN EUG DISCHARGE S GROUP MANAGEMEN T UNCLASSIF J3490 [facility] IED DRUGS 6 [facility] INC INC SBS 16059 [facility] 6 PHYSICIAN MAT CARE/DAY S GROUP 15 MINUTES ADMN SET A7003 [facility] KERNS SM VOL 6 HOME HOME NONFILTR MEDICAL MEDICAL PNEUMAT EQUIPME EQUIPME NEBULIZR DISPBL NEBULIZER E0570 [facility] KERSN WITH 6 HOME HOME COMPRESSO MEDICAL MEDICAL R EQUIPME EQUIPME INITIAL [address] [place] [address] PHYSICIAN MAT CARE/DAY S GROUP 70 MINUTES SBSQ 41314 [facility] OBSERVATI 6 [facility] ON HOSPITAL CARE/DAY 15 MINUTES ECHO 08726 [facility] TTHRC R-T 6 [facility] 2D INC INC W/WOM-MOD E COMPL SPEC&COLR D UNCLASSIF J3490 [facility] IED DRUGS 6 [facility] INC INC HOSPITAL G0378 [facility] OBSERVATI 6 [facility] ON INC INC SERVICE PER HOUR HOSPITAL G0378 [facility] OBSERVATI 6 [facility] ON INC INC SERVICE PER HOUR INITIAL 77931 [facility] OBSERVATI 6 [facility] ON HOSPITAL CARE/DAY 30 MINUTES CULTURE 82795 [facility] BACTERIAL 6 [facility] BLOOD INC INC AEROBIC W/ID ISOLATES SUSCEPTIB 36361 [facility] LTY STDY 6 [facility] ANTIMICRB INC INC IAL MICRO/AGA R DILUTJ RADIOLOGI 69524 [facility] CHEST 2 IMAGING VIEWS ASS FRONTAL&L ATERAL SMR PRIM 23662 [facility] SRC 6 [facility] GRAM/GIEM INC INC SA STAIN BCT FUNGI/SUSI L COLLECTIO 06461 [facility] N VENOUS 6 [facility] BLOOD INC INC VENIPUNCT URE ECG 03553 BAR RANGEL ROUTINE 6 [facility] W/LEAST P 12 LDS I&R ONLY COMPREHEN 04568 [facility] SIVE 6 [facility] METABOLIC INC INC PANEL UNCLASSIF J3490 [facility] IED DRUGS 6 [facility] INC CREATINE 38932 [facility] KINASE MB 6 [facility] [place] [address] [facility] LACTATE 6 [place] [address] [facility] INFUSION 6 [facility] THER INC INC PROPH ADDL SEQUENTIA L [place] [address] [place] [address] [facility] AMYLASE 6 [place] [address] [facility] ANGIOGRAP 6 [facility] HY CHEST INC INC W/CONTRAS T/NONCONT RAST CUL BACT 21768 [facility] AEROBIC 6 [facility] ADDL INC INC METHS DEFINITIV E EA ISOL URNLS DIP 31724 [facility] 6 [facility] STICK/TAB INC INC [place] [address] [facility] TROPONIN 6 [facility] QUANTITAT INC INC KATY CREATINE 80139 [facility] KINASE 6 [facility] [place] [address] [facility] LIPASE 6 [facility] INC INC CT THORAX 88383 CUR[place] ADELINE W/O & 6 MEDICAL SATH[facility] W/CONTRAS IMAGING T ASS MATERIAL ECG 06812 [facility] ROUTINE 6 [facility] ECG INC INC W/LEAST 12 LDS TRCG ONLY W/O I&R BLOOD 40925 [facility] COUNT 6 [facility] COMPLETE INC INC AUTO&AUTO DIFRNTL WBC RADIATION 43949 [facility] 6 Y Y [facility] DELIVERY 1 MEV => COMPLEX RADIATION [address] DELIVERY 1 MEV => COMPLEX RADIATION [address] DELIVERY 1 MEV => COMPLEX RADIATION [address] DELIVERY 1 MEV => COMPLEX CONTINUIN [address] [place] RADIATION [address] DELIVERY 1 MEV => COMPLEX RADIATION [address] DELIVERY 1 MEV => COMPLEX RADIATION [address] DELIVERY 1 MEV => COMPLEX COMPREHEN 72552 [facility] SIVE 6 [facility] METABOLIC INC INC PANEL CHEMOTHER 65222 [facility] APY ADMN 6 [facility] IV INC INC INFUSION TQ EA HR CHEMOTX 93391 [facility] ADMN IV 6 [facility] NFS TQ UP INC INC 1 HR SBST/DRUG UNCLASSIF J3490 [facility] IED DRUGS 6 [facility] INC INC CHEMOTX 87558 [facility] ADMN IV 6 [facility] NFS TQ EA INC INC SEQL NFS TO 1 HR BLOOD 79290 [facility] COUNT 6 [facility] COMPLETE INC INC AUTO&AUTO DIFRNTL WBC RADIATION [address] DELIVERY 1 MEV => COMPLEX RADIATION [address] DELIVERY 1 MEV => COMPLEX CONTINUIN [address] [place] THER RAD [address] FIELD SETTING SIMPLE RADIATION 938[address] DELIVERY 1 MEV => COMPLEX RADIATION [address] DELIVERY 1 MEV => COMPLEX THERAPEUT 27790 [facility] 6 Y Y [facility] IMAGES(S) RADIATION [address]202 [place] [address] Y Y [facility] DELIVERY 1 MEV => COMPLEX RADIATION 99354 [place] [address] Y Y [facility] DEL[facility] MEV => COMPLEX RADIATION 30794 [place] [address] Y Y [facility] 1 MEV => COMPLEX RADIATION 56744 [place] [address] Y Y [facility] DELIVERY 1 MEV => COMPLEX THERAPEUT 65209 [facility] 6 Y Y [facility] IMAGES(S) RADIATION 27824 [place] [address] Y Y [facility] DELIVERY 1 MEV => COMPLEX RADIATION 42046 [place] [address] Y Y [facility] DELIVERY 1 MEV => COMPLEX TELETHX 17742 [facility] 6 Y Y PLN [facility] W/[place] [address] [place] [address] Y [facility] CONSTRUCT ION COMPLEX RADIATION 67365 [place] [address] Y Y [facility] DELIVERY 1 MEV => COMPLEX THERAPEUT 07463 [facility] 6 Y Y [facility] IMAGES(S) RADIATION 93658 [place] [address] Y Y [facility] DELIVERY 1 MEV => COMPLEX RADIATION 66284 [place] [address] Y Y [facility] DELIVERY 1 MEV => COMPLEX BASIC 51989 [facility] METABOLIC 6 [facility] PANEL INC INC CALCIUM TOTAL CHEMOTHER 86179 [facility] APY ADMN 6 [facility] IV INC INC INFUSION TQ EA HR CHEMOTX 77886 [facility] ADMN IV 6 [facility] NFS TQ UP INC INC 1 HR SBST/DRUG UNCLASSIF J3490 [facility] IED DRUGS 6 [facility] INC INC CHEMOTX 08065 [facility] ADMN IV 6 [facility] NFS TQ EA INC INC SEQL NFS TO 1 HR BLOOD 50563 [facility] COUNT 6 [facility] COMPLETE INC INC AUTO&AUTO DIFRNTL WBC RADIATION 32664 [facility] 6 Y Y [facility] DELIVERY 1 MEV => [place] [address] [facility] DEVICES 6 Y Y [facility] CONSTRUCT ION COMPLEX 3-D 73189 [facility] RADIOTHER 6 Y Y [facility] DOSE-VOLU ME HISTOGRAM S THER RAD 09165 [facility] 6 Y Y [facility] FIELD SETTING COMPLEX BRNCDILAT 22105 [facility] RSPSE 6 [facility] SPMTRY INC INC PRE&POST- BRNCDILAT ADMN SPMTRY 98528 [place] W/VC 6 MEDICAL JAM EXPIRATOR SERV Y JULIO FOUNDATIO W/WO MXML N VOL VNTJ GAS 32487 [facility] DILUT/WAS 6 [facility] HOUT LUNG INC INC VOL W/[place] [address] [place] DIOP DIFFUSING 6 MEDICAL JAM CAPACITY SERV FOUNDATIO N PLETHYSMO 64788 [place] DIOP GRAPHY 6 MEDICAL JAM LUNG SERV VOLUMES FOUNDATIO W/WO N AIRWAY RESIST MRI BRAIN 48221 [facility] BRAIN 6 [facility] STEM W/O INC INC W/CONTRAS T MATERIAL UNCLASSIF J3490 BRA [facility] IED DRUGS 6 [facility] INC INC PET 73074 [facility] IMAGING [address] [facility] ATTENUATI ON SKULL BASE MID-THIGH FLUORODEO A9552 [facility] XYGLUCOSE 6 Y Y F-18 FDG [facility] DX UP TO 45 MCI COLLECTIO 63334 [facility] N VENOUS 6 [facility] [place] [address] [facility] UREA [facility] NITROGEN INC INC QUANTITAT KATY CREATININ 82142 [facility] E BLOOD 6 [facility] INC INC ANESTHESI 28912 [place] JAY JAY A CLOSED 6 MEDICAL BIENVENIDO CHEST SERVICES W/BRONCHO SCOPY NOS IMHISTOCH 04568 [place] ABSNER EM/CYTCHM 6 MEDICAL KARAN EA ADDL SERV ANTIBODY FOUNDATIO SLIDE N BRONCHOSC 31059 [place] MASKEY OPY 6 MEDICAL ABDI BRONCHIAL SERV /ENDOBRNC FOUNDATIO L BX 1+ N SITES BRONCHOSC 87163 [place] OPY 6 MEDICAL ABDI NEEDLE BX SERV TRACHEA FOUNDATIO MAIN N STEM&/BRO N BRNCHSC 73007 [place] EBUS 6 MEDICAL ABDI GUIDED SERV SAMPL 3/> FOUNDATIO NODE N STATION/S TRUX IMHISTOCH 15385 [place] ABSNER EM/CYTCHM 6 MEDICAL KARAN 1ST SERV ANTIBODY FOUNDATIO STAIN N PROCEDURE CYTP FINE 09277 [place] ABSNER NDL 6 MEDICAL KARAN ASPIRATE SERV IMMT FOUNDATIO CYTOHIST N STD DX 1ST CYTP EVAL 66325 [place] ABSNER FINE 6 MEDICAL KARAN NEEDLE SERV ASPIRATE FOUNDATIO INTERP & [place] [address] [place] ABSNER SURG 6 MEDICAL KARAN PATHOLOGY SERV FOUNDATIO GROSS&RENU N ROSCOPIC EXAM CYTP FINE 15418 [place] ABSNER NDL 6 MEDICAL KARAN ASPIRATE SERV IMMT FOUNDATIO CYTOHIST N STD EA EVAL BRONCHOSC 53346 [place] MAS[place] OPY 6 MEDICAL ABDI W/TRANSBR SERV ONCL NDL FOUNDATIO ASPIR BX N EA LOBE ECG 16527 [place] ISABEL ZEV ROUTINE 6 MEDICAL ECG SERV W/LEAST FOUNDATIO 12 LDS N I&R ONLY ECG 99191 [facility] ROUTINE 6 Y Y ECG HOSPITAL [facility] W/LEAST 12 LDS TRCG ONLY W/O I&R SPMTRY 85750 [place] DIOP W/VC 6 MEDICAL JAM EXPIRATOR SERV Y JULIO FOUNDATIO W/[place] [address] [place] DIOP DIFFUSING 6 MEDICAL JAM CAPACITY SERV FOUNDATIO N PULMONARY 86447 [place] DIOP STRESS 6 MEDICAL JAM TESTING SERV SIMPLE FOUNDATIO N CT THORAX 49045 CURTIS NORTONINEKE 6 MEDICAL EDWIN W/[place] [address] [facility] UREA 6 [facility] NITROGEN INC INC QUANTITAT KATY COLLECTIO 10753 [facility] N VENOUS 6 [facility] BLOOD INC INC VENIPUNCT URE CREATININ 91179 [facility] E BLOOD 6 [facility] INC INC LIVER 78783 BILL ROSENAU ELASTOGRA 6 MEDICAL KUSH PHY W/O SERV IMAG FOUNDATIO W/I&R N BLOOD 60176 [place] COUNT 6 [facility]ALTH[facility] HEALTHCAR COMPLETE E E AUTOMATED [facility] IADNA 96461 [facility] HEPATITIS 6 HEALTHCAR HEALTHCAR C QUANT E E & REVERSE [facility] TRANSCRIP TION COLLECTIO 33010 [facility] N VENOUS 6 [facility]ALTHCAR HEALTHCAR BLOOD E E VENIPUNCT [facility] URE COMPREHEN 79584 [facility] SIVE 6 [facility] METABOLIC E E PANEL [facility] PROTHROMB 50696 [facility] IN TIME 6 HEALTHCAR HEALTHCAR E E [facility] THERAPEUT 68832 [facility] IC PX 1/> 6 [facility] AREAS INC INC EACH 15 MIN EXERCISES THERAPEUT 42392 [facility] IC PX 1/> 6 [facility] AREAS INC INC EACH 15 MIN EXERCISES THERAPEUT 07655 [facility] IC PX 1/> 6 [facility] AREAS INC INC EACH 15 MIN EXERCISES THERAPEUT 41413 [facility] IC PX 1/> 6 [facility] AREAS INC INC EACH 15 MIN EXERCISES MANUAL 06073 [facility] THERAPY 6 [facility] TQS 1/> INC INC REGIONS EACH 15 MINUTES APPL 21315 [facility] MODALITY 6 [facility] 1/> AREAS INC INC ULTRASOUN D EA 15 MIN THERAPEUT 98171 [facility] IC PX 1/> 6 [facility] AREAS INC INC EACH 15 MIN EXERCISES THERAPEUT 79567 [facility] IC PX 1/> 6 [facility] AREAS INC INC EACH 15 MIN EXERCISES THERAPEUT 02173 [facility] IC PX 1/> 6 [facility] AREAS INC INC EACH 15 MIN EXERCISES THERAPEUT 35710 [facility] IC PX 1/> 6 [facility] AREAS INC INC EACH 15 MIN EXERCISES APPL 71317 [facility] MODALITY 6 [facility] 1/> AREAS INC INC ULTRASOUN D EA 15 MIN MANUAL 65154 [facility] THERAPY 6 [facility] TQS 1/> INC INC REGIONS EACH 15 MINUTES PHYSICAL 43428 [facility] THERAPY 6 [facility] EVALUATIO INC INC N INJECTION J3301 [place] BESSON 6 [facility] TRIAMCINO INTERNAL LONE MED ACETONIDE NOS 10 MG THERAPEUT 45829 [place] [facility] IC 6 [facility] PROPHYLAC INTERNAL TIC/DX MED INJECTION SUBQ/IM CREATINE 47830 [facility] KINASE [facility] TOTAL INC INC ECG 55651 [facility] ROUTINE 6 [facility] ECG INC INC W/LEAST 12 LDS TRCG ONLY W/O I&R CREATINE 59572 BRA [facility] KINASE MB 6 [facility] FRACTION INC INC ONLY BLOOD 68569 [facility] COUNT 6 [facility] COMPLETE INC INC AUTO&[place] [address] [facility] TROPONIN 6 [facility] QUANTITAT INC INC KATY COMPREHEN 09639 [facility] SIVE [facility] METABOLIC INC INC PANEL DRUG TEST G0481 [facility] DEFINITV [address] [facility] [address] ID INC INC METH P DAY 8-14 DRUG CL COLLECTIO 16003 [facility] N VENOUS 6 [facility] BLOOD INC INC VENIPUNCT URE ECG 87971 BAR RANGEL ROUTINE 6 [facility] W/LEAST P 12 LDS I&R ONLY RADIOLOGI 08357 CURTIS LR C EXAM 6 MEDICAL SATHISH CHEST 2 IMAGING VIEWS ASS FRONTAL&L ATERAL MRI ANY 17087 [place] ADELINE JT LOWER 5 MEDICAL SATHISH EXTREM IMAGING W/O ASS CONTRAST MATRL SLCTV 80177 CARDIOVAS LISA CATH 5 CULAR MAT 1STORD CONSULTAN W/WO ART TS O PUNCT/FLU OR/S&I MARKOS CATH PLMT 69205 CARDIOVAS LISA L HRT & 5 CULAR MAT ARTS CONSULTAN W/NJX & TS O ANGIO IMG S&I RADIOLOGI 13742 [place] [facility] ALL C 5 MEDICAL EXAMINATI IMAGING ON KNEE 3 ASS VIEWS RADEX HIP 58723 [place] [facility] ALL 5 MEDICAL UNILATERA IMAGING L ASS COMPLETE MINIMUM 2 VIEWS CULTURE 25178 COMBINED COMBINED BACTERIAL 5 PHYSICIAN PHYSICIAN S LA S LA QUANTTATI VE COLONY COUNT URINE URNLS DIP 85232 [place] MARTINEZ 5 [facility] STICK/TAB INTERNAL LET RGNT MED NON-AUTO W/O MICRSCP MRI 45026 [place] [facility] ALL SPINAL 5 MEDICAL CANAL IMAGING LUMBAR ASS W/O CONTRAST MATERIAL 3D 44022 [place] [facility] ALL RENDERING 5 MEDICAL W/INTERP IMAGING & ASS POSTPROCE SS SUPERVISI ON THERAPEUT 08114 [facility] IC PX 1/> 5 [facility] AREAS INC INC EACH 15 MIN EXERCISES THERAPEUT 66542 [facility] IC PX 1/> 5 [facility] AREAS INC INC EACH 15 MIN EXERCISES APPL 22686 [facility] MODALITY 5 [facility] 1/> AREAS INC INC ULTRASOUN D EA 15 MIN APPL 53126 [facility] MODALITY 5 [facility] 1/> AREAS INC INC ULTRASOUN D EA 15 MIN MANUAL 96995 [facility] THERAPY 5 [facility] TQS 1/> INC INC REGIONS EACH 15 MINUTES THERAPEUT 42241 [facility] IC PX 1/> 5 [facility] AREAS INC INC EACH 15 MIN EXERCISES THERAPEUT 63631 [facility] IC PX 1/> 5 [facility] AREAS INC INC EACH 15 MIN EXERCISES APPL 82747 [facility] MODALITY 5 [facility] 1/> AREAS INC INC IONTOPHOR ESIS EA 15 MIN UNCLASSIF J3490 [facility] IED DRUGS 5 [facility] INC INC UNCLASSIF J3490 [facility] IED DRUGS 5 [facility] INC INC APPL 64801 [facility] MODALITY 5 [facility] 1/> AREAS INC INC IONTOPHOR ESIS EA 15 MIN THERAPEUT 78396 [facility] D[facility] IC PX 1/> 5 [facility] AREAS INC INC EACH 15 MIN EXERCISES MANUAL 31587 [facility] THERAPY 5 [facility] TQS 1/> INC INC REGIONS EACH 15 MINUTES APPL 31560 [facility] MODALITY 5 [facility] 1/> AREAS INC INC ULTRASOUN D EA 15 MIN APPL 84222 [facility] MODALITY 5 [facility] 1/> AREAS INC INC ULTRASOUN D EA 15 MIN APPL 72676 [facility] MODALITY 5 [facility] 1/> AREAS INC INC TRACTION MECHANICA L THERAPEUT 81131 [facility] IC PX 1/> 5 [facility] AREAS INC INC EACH 15 MIN EXERCISES THERAPEUT 15843 [facility] IC PX 1/> 5 [facility] AREAS INC INC EACH 15 MIN EXERCISES APPL 54021 [facility] MODALITY 5 [facility] 1/> AREAS INC INC IONTOPHOR ESIS EA 15 MIN UNCLASSIF J3490 [facility] IED DRUGS 5 [facility] INC INC APPL 61214 [facility] MODALITY 5 [facility] 1/> AREAS INC INC ULTRASOUN D EA 15 MIN MANUAL 54903 [facility] THERAPY 5 [facility] TQS 1/> INC INC REGIONS EACH 15 MINUTES MANUAL 50606 [facility] THERAPY 5 [facility] TQS 1/> INC INC REGIONS EACH 15 MINUTES E-STIM G0283 [facility] 1/> AREAS 5 [facility] OT THAN INC INC WND CARE PART TX PLAN THERAPEUT 56160 [facility] IC PX 1/> 5 [facility] AREAS INC INC EACH 15 MIN EXERCISES PHYSICAL 73177 [facility] THERAPY 5 [facility] EVALUATIO INC INC N CULTURE 04059 BELGIAN BELGIAN BACTERIAL 5 ESOTERIC ESOTERIC LABORATOR LABORATOR QUANTTATI I I VE COLONY COUNT URINE CUL BACT 47484 BELGIAN BELGIAN AEROBIC 5 ESOTERIC ESOTERIC ADDL LABORATOR LABORATOR METHS I I DEFINITIV E EA ISOL URINE 59235 ASSOCIATE SARAVIA 5 S FOR III RAJINDER TEST WOMENS VISUAL CARE P COLOR CMPRSN METHS SUSCEPTIB 08971 BELGIAN BELGIAN LTY STDY 5 ESOTERIC ESOTERIC ANTIMICRB LABORATOR LABORATOR IAL I I MICRO/AGA R DILUTJ COLPOSCOP 39095 ASSOCIATE SARAVIA Y CERVIX 5 S FOR III RAJINDER UPPER/ADJ WOMENS ACENT CARE P VAGINA SCREENING G0202 [place] [facility] ALL 5 MEDICAL MAMMOGRAP IMAGING HY MARKOS ASS INCL CAD WHEN PERFORMD COMPUTER- 84198 [place] [facility] ALL AIDED 5 MEDICAL DETECTION IMAGING ASS SCREENING MAMMOGRAP HY CYTP C/V 56993 [facility], AUTO THIN 5 [facility] LYR PREPJ SCR MNL RESCR PHYS IADNA 52215 [facility] HUMAN 5 [facility] PAPILLOMA VIRUS HIGH-RISK TYPES CULTURE 17183 BELGIAN BELGIAN BACTERIAL 5 ESOTERIC ESOTERIC LABORATOR LABORATOR QUANTTATI I I VE COLONY COUNT URINE CUL BACT 82165 BELGIAN BELGIAN AEROBIC 5 ESOTERIC ESOTERIC ADDL LABORATOR LABORATOR METHS I I DEFINITIV E EA ISOL SUSCEPTIB 22197 BELGIAN BELGIAN LTY STDY 5 ESOTERIC ESOTERIC ANTIMICRB LABORATOR LABORATOR IAL I I MICRO/AGA R DILUTJ PSYCHOTHE 50188 GLORYRENÉ AUGUST LAUREL RAPY 5 .ORG W/PATIENT 30 MINUTES PSYCHOTHE 43026 [facility] BLUEGRASS RAPY 5 ADULTS ADULTS W/PATIENT 60 MINUTES CONTINUOU E0601 LUIS F KERNS S 5 HOME HOME POSITIVE MEDICAL MEDICAL AIRWAY EQUIPME EQUIPME PRESSURE DEVICE PSYCHOTHE 37856 HAYES MURPHY 5 ADULTS ADULTS W/PATIENT 30 [...] EQUIPME EQUIPME W/POS ARWAY PRESS DEVICE POLYSOM 50326 CAROLS HAIR 6/>YRS 5 SLEEP 4/> ADDL NKECHI ATTND PSYCHOTHE 60036 HAYES NUNESY 5 ADULTS ADULTS W/PATIENT 60 MINUTES POLYSOM 31980 [facility] 6/>YRS 5 [facility] SLEEP 4/> INC INC ADDL NKECHI ATTND RADIOLOGI 68436 [facility] C EXAM 5 [facility] CHEST 2 INC INC VIEWS FRONTAL&L ATERAL ECG 86697 CARDIOVAS LISA ROUTINE 5 CULAR MAT ECG CONSULTAN W/LEAST TS O 12 LDS I&R ONLY ECG 97229 [facility] ROUTINE 5 [facility] MEM [...] W W REGIONAL REGIONAL MEDICAL MEDICAL COLLECTIO 68546 LAURA SANCHEZ N VENOUS 5 W W BLOOD REGIONAL REGIONAL VENIPUNCT MEDICAL MEDICAL URE BASIC 29596 LAURA SANCHEZ METABOLIC 5 W W PANEL REGIONAL REGIONAL CALCIUM MEDICAL MEDICAL TOTAL INJECTION J2250 LAURA BROOKSWVIE 5 W W MIDAZOLAM REGIONAL REGIONAL HCL PER MEDICAL MEDICAL 1 MG BLOOD 30508 LAURA SANCHEZ COUNT 5 W W COMPLETE REGIONAL REGIONAL AUTO&AUTO MEDICAL MEDICAL DIFRNTL WBC INTRDUCR/ C1766 LAURA SANCHEZ SHEATH 5 W W GUID REGIONAL REGIONAL INTRACARD MEDICAL MEDICAL EP NOT PEEL-AWAY LOCM Q9967 LAURA SANCHEZ 300-399 5 W W MG/ML REGIONAL REGIONAL IODINE MEDICAL MEDICAL CONCENTRA TION PER ML CATH PLMT 73807 CARDIOVAS LISA L HRT & 5 CULAR MAT ARTS CONSULTAN W/NJX & TS O ANGIO IMG S&I INJECTION J3010 LAURA SANCHEZ FENTANYL 5 W W CITRATE REGIONAL REGIONAL 0.1 MG MEDICAL MEDICAL INFUSION J7030 LAURA SANCHEZ NORMAL 5 W W SALINE REGIONAL REGIONAL SOLUTION MEDICAL MEDICAL 1000 CC FLUORESCE 26658 [facility] 5 [facility] ANTB SCREEN EA ANTIBODY PROTHROMB 07709 [facility] IN TIME 5 Y Y [facility]PITAL [facility]PITAL COLLECTIO 48166 [facility] N VENOUS 5 Y Y BLOOD [facility] VENIPUNCT URE HEPATIC 83826 [facility] FUNCTION 5 Y Y [facility] ECG 91725 CARDIOVAS LISA ROUTINE 5 CULAR MAT ECG CONSULTAN W/LEAST TS O 12 LDS W/I&R PSYCHOTHE 00712 [facility] BLUEGRASS RAPY 5 ADULTS ADULTS W/PATIENT 45 MINUTES LEVEL V 95425 [place] DARIUS ANA SURG 5 MEDICAL PATHOLOGY SERV FOUNDATIO GROSS&RENU N ROSCOPIC EXAM ABDOM 06638 [facility] PARACENTE 5 Y Y [facility] DX/THER W/IMAGING GUIDANCE BIOPSY 12894 [facility] LIVER 5 Y Y NEEDLE [facility] SP[facility]N 22121 BILL M[place]OY ANA 2 I&R 5 MEDICAL EXCPT SERV MICROORG/ FOUNDATIO ENZYME/IM N CYT PROTHROMB 37324 [facility] IN TIME 5 [facility] INC INC BLOOD 43147 [facility] COUNT 5 [facility] COMPLETE INC INC AUTO&AUTO DIFRNTL WBC THROMBOPL 17705 [facility] ASTIN 5 [facility] TIME INC INC PARTIAL PLASMA/WH OLE BLOOD COLLECTIO 16052 [facility] N VENOUS 5 [facility] BLOOD INC INC VENIPUNCT URE PSYCHOTHE 55341 [facility] RAPY 5 ADULTS ADULTS W/PATIENT 30 MINUTES APOLIPOPR 55359 [facility] OTEIN 4 [place] [address] [facility] HAPTOGLOB 4 Y Y IN [facility] [place] [address] [facility] NEPHELOME 4 Y Y [place] [facility] [place] [address] [facility] GLUTAMYLT 4 Y Y RASE [facility] GAMMA IMMUNOASS 59168 [facility] AY 4 Y Y ANALYTE [facility] QUANTITAT KATY NOS FLUORESCE 21594 [facility] NT 4 Y Y NONNFCT [facility] AGT ANTB SCREEN EA ANTIBODY ANTINUCLE 16945 [facility] AR 4 Y Y ANTIBODIE [facility] S TORRES PROTHROMB 67650 [facility] IN TIME Y Y HOSPITAL HOSPITAL MICROSOMA 05756 [facility] L 4 Y Y ANTIBODIE [facility] S EACH NFCT AGNT 05975 [facility] GENOTYP 4 Y Y NUCLEIC [facility] ACID HEPATITIS C VIRUS COLLECTIO 32053 [facility] N VENOUS 4 Y Y BLOOD [facility] VENIPUNCT URE IADNA 75289 [facility] HEPATITIS 4 Y Y C QUANT [facility] TRANSCRIP TION BLOOD 33443 [facility] COUNT 4 Y Y COMPLETE [facility] AUTOMATED PSYCHOTHE 53906 HAYES HOLDERGRASS RAPY 4 .ORG .ORG W/PATIENT 45 MINUTES PSYCHOTHE 83943 HAYES KOO RAPY 4 .ORG .ORG W/PATIENT 45 MINUTES HEPATOBIL 10071 [facility] IARY SYST 4 [facility] IMAGING INC INC INCLUDING GALLBLADD ER UNCLASSIF J3490 [facility] IED DRUGS 4 [facility] INC INC PSYCHOTHE 06648 [facility]AY[facility] BLUEGRASS RAPY 4 ADULTS ADULTS W/PATIENT 45 MINUTES PSYCHIATR 43679 [facility] HOLDERGRASS IC 4 ADULTS ADULTS DIAGNOSTI C EVAL W/MEDICAL SERVICES IADNA 64638 [facility] HEPATITIS 4 [facility] C QUANT INC INC & [place] [address] [facility] ABDOMINAL 4 [facility] REAL INC INC TIME W/IMAGE LIMITED ACUTE 94683 LAB PAT[facility] LAB PATRICK HEPATITIS 4 BLOSSOM BLOSSOM PANEL HOLDINGS HOLDINGS LIPID 54393 COMBINED COMBINED PANEL 4 PHYSICIAN PHYSICIAN S LA S LA COLLECTIO 36217 [facility] N VENOUS 4 [place] [place] BLOOD INTERNAL VENIPUNCT MED URE COMPREHEN 09416 COMBINED COMBINED SIVE 4 PHYSICIAN PHYSICIAN METABOLIC S LA S LA PANEL HANDLG&/O 16224 [facility] R CONVEY 4 [place] OF SPEC INTERNAL FOR TR MED OFFICE TO LAB BLOOD 42742 COMBINED COMBINED COUNT 4 PHYSICIAN PHYSICIAN COMPLETE S LA S LA AUTO&AUTO DIFRNTL WBC SPMTRY 01576 [place] [facility] W/VC 4 [place] [place] EXPIRATOR INTERNAL Y JULIO MED W/WO MXML VOL VNTJ Encounters Encounter Start End Date Code Location Performer Type Date EMERGENCY 11806 JANAK SHEPARD 7 7 PHYSICIAN DEPARTDERRELL S, PLLC T VISIT HIGH/URGE NT SEVERITY OFFICE 37040 [facility] SRIVASTAV OUTPATIEN 7 7 PHYSICIAN A T VISIT S GROUP 25 MINUTES EMERGENCY 43827 JANAK GARCÍA DEPT 7 7 PHYSICIAN VISIT S, PLLC HIGH SEVERITY& THREAT FUNCJ OFFICE 29171 [facility]IM OUTPATIEN 7 7 NURSE T VISIT PRACTITIO 25 NER GR MINUTES [facility]OSPITAL [facility] - 7 7 [facility] OUTPATIEN E T HOSPITALS OFFICE 26037 [facility] LISA OUTPATIEN 7 7 PHYSICIAN T VISIT S GROUP 40 MINUTES HOSPITAL [facility] - 7 7 [facility] OUTPATIEN INC T EMERGENCY 80[address] [facility] DEPT 7 7 PHYSICIAN VISIT S, PLLC HIGH SEVERITY& THREAT FUNCJ OFFICE 85420 [facility] DIAMOND OUTPATIEN 7 7 NURSE CK T VISIT PRACTITIO 25 NER GR MINUTES OFFICE 22301 [facility] OUTPATIEN 7 7 [facility] T VISIT INC 10 MINUTES OFFICE 07920 LET[facility] EUGENE OUTPATIEN 7 7 MD MOISE, T VISIT PSC 15 MINUTES [facility]OSPITAL BAR - 7 7 [facility] T OFFICE 41726 [facility] OUTPATIEN 7 7 PHYSICIAN T VISIT S GROUP 15 MINUTES [facility]OSPITAL BAR - 7 7 [facility] T [facility] BAR - 7 7 [facility] T [facility] BAR - 7 7 [facility] OUT[facility] INC T EMERGENCY 15128 BAR 7 7 [facility] DEPARTMEN INC T VISIT HIGH/URGE NT SEVERITY HOSPITAL BAR - 7 7 [facility]PATIEN INC T EMERGENCY 84504 [facility] DEPT 7 7 [facility] HIGH SEVERITY& THREAT FUNCJ OFFICE 62185 [facility] OUTPATIEN 7 7 [facility] T VISIT INC 10 MINUTES OFFICE 77864 LETHA EUGENE OUTPATIEN 7 7 MD MOISE, T VISIT [facility] 15 MINUTES [facility] BAR - 7 7 [facility] OUTPATIEN INC [facility] BAR - 7 7 [facility] OUTPATI[facility] T OFFICE 51171 [facility] [place] [facility] 7 7 [facility] T VISIT [facility] 15 P MINUTES [facility] BAR - 7 7 [facility] OUTPATIEN INC T OFFICE 19748 [facility] FERNA[facility] OUTPATIEN 7 7 NURSE T VISIT PRACTITIO 25 NER GR MINUTES OFFICE 39607 [facility] [place] [facility] 7 7 [facility] T [facility] 15 P MINUTES [facility] - 7 7 [facility] OUTPATIEN E [facility] - 7 7 [facility] OUTPATIEN E HOSPITALS OFFICE 03725 OUTPATIEN 7 7 [facility] T VISIT 5 E [facility] BAR - 7 7 [facility] OUTPATIEN INC T OFFICE 68636 [facility] OUTPATIEN 7 7 [facility] T VISIT INC 10 [facility] BAR - 7 7 [facility] OUTPATI[facility] INC [facility] BAR - 7 7 [facility] OUTPATIEN INC T OFFICE 78848 [facility] [place] [facility] 6 6 [facility] T [facility] 15 P MINUTES OFFICE 38583 [facility] OUTPATIEN 6 6 PHYSICIAN EUG T VISIT S GROUP 25 [facility] BAR - 6 6 [facility] OUTPATIEN INC T OFFICE 08296 [facility]I 6 6 Y T VISIT 5 [facility] UNIVERSIT - 6 6 Y OUTPATI HOSPITAL T OFFICE 84953 [facility] [place] [facility] 6 6 [facility] T VISIT 5 HOSPITAL MINUTES HOSPITAL BAR - 6 6 [facility] 90694 [facility] 6 6 NURSE ANG T VISIT PRACTITIO 25 NER GR MINUTES OFFICE 08047 [facility] 6 6 [facility] T VISIT HOSPITAL 10 P MINUTES EMERGENCY 50825 [facility] DEPT 6 6 PHYSICIAN SAMMI VISIT S, [facility] HIGH [facility]VERITY& THREAT [facility] BAR - 6 6 [facility] INPATIENT [facility]ERS[facility] - 6 [facility] 6 Y [facility] T OFFICE 50543 [facility] 6 6 PHYSICIAN EUG T [facility]ISIT S GROUP 15 [facility] UNIVERSIT - 6 6 Y [facility] UNIVERSIT [facility] 6 6 Y [facility]ERSIT - 6 6 [facility] 15016 [facility] DEPT 6 6 [facility] VISIT INC HIGH SEVERITY& THREAT [facility] BAR - 6 6 [facility] 6 Y [facility] UNIVERSIT [facility] 6 6 Y [facility]ERSIT [facility] Y [facility] [place] [facility] OFFICE 16659 [place] [facility] [facility] [address] BAR - 6 6 [facility] UN[facility]ERSIT - 6 6 [facility] 61776 BAR [facility] 6 6 [facility] UNIVERSIT [facility] 6 6 Y [facility] T OFFICE 14328 LETHA VALDIVIANELL [facility] 6 6 MD MOISE, T [address] UN[facility]ERSIT - 6 6 [facility] 6 6 Y [facility] T OFFICE 14670 [place] [facility] [address] UNIVERSIT - 6 6 [facility] 6 [facility] 6 [facility] 6 6 [facility] - 6 6 [facility] 69512 [place] OUTPATI 6 6 [facility] 10 [facility] UN[facility]IT - 6 6 [facility] 6 [facility] 6 [facility] 82487 [facility] 6 6 Y T VISIT 5 [facility] BAR - 6 6 [facility] OUT[facility]EN [facility] T OFF[facility] 86990 [place] [facility] [address] BAR - 6 6 [facility] UNIVERSIT [facility] 6 6 [facility] - 6 6 [facility] T OFFICE 67825 [facility] 6 6 NURSE CK ANIBAL T VISIT PRACTITIO 25 NER GR MINUTES OFFICE 13340 [facility] 6 6 MEDICAL JAM T VISIT SERV 25 FOUNDATIO MINUTES N OFFICE 45517 [facility] 6 6 Y T VISIT 5 [facility]ERS[facility] 6 6 [facility] 97207 [facility] 6 6 PHYSICIAN RENU T VISIT S GROUP 15 [facility] BAR - 6 6 [facility] OUTPATIEN INC T OFFICE 93142 [facility] PHYSICIAN RENU T NEW 20 S GROUP [facility] UK - 6 6 [facility] OUT[facility]IEN E [facility] BAR - 6 6 [facility] OUTPATIEN INC [facility] BAR - 6 6 [facility] INC T OFFICE 45309 [facility] 6 6 [facility] T VISIT 5 INTERNAL MINUTES [facility] BAR - 6 6 [facility] OUTPAT[facility] INC T EMERGENCY 21012 BAR 6 6 [facility] T VISIT MODERATE SEVERITY EMERGENCY 30117 JANAK SHEPARD, DEPT 6 6 PHYSICIAN JR MADERA VISIT S, [facility] HIGH SEVERITY& THREAT [facility] BAR - 5 5 [facility] OUTPATIEN INC T OFFICE 24111 [place] SHASHI PHI CONSULTAT 5 5 MEDICAL ION SERV NEW/ESTAB FOUNDATIO PATIENT N 40 MIN OFFICE 74308 [facility] CANDE OUTPATIGUCCI 5 5 PHYSICIAN YANCI URBINA 30 S [facility] BAR - 5 5 [facility] OUT[facility] INC T OFFICE 94684 [place] [facility] 5 5 [facility] T VISIT INTERNAL 15 [facility] BAR - 5 5 [facility] OUTPATI[facility] INC T OFFICE 25503 [place] [facility] 5 5 [facility] T VISIT INTERNAL 25 MED [facility] BAR - 5 5 [facility] OUTPAT[facility] INC [facility] BAR - 5 5 [facility] OUTPATI[facility] INC T OFFICE 68222 ASSOCIATE MANJIT ASTUDILLO 5 5 S FOR III RAJINDER T VISIT WOMENS 15 [facility] BAR - 5 5 [facility] OUTPATIEN INC T INITIAL 78845 ASSOCIATE EMMY ALLEN PREVENTIV 5 5 S FOR E [facility] NEW PATIENT 40-64YRS OFFICE 16207 [place] [facility] OUTPATIEN 5 5 LLANO T VISIT INTERNAL 15 MED MINUTES HOSPITAL BAR - 5 5 [facility] 5 5 [facility] 04250 CARDIOVAS LISA OUTPATIEN 5 5 CULAR MAT T VISIT CONSULTAN 25 TS O MINUTES HOSPITAL MEADOWVIE - 5 5 [facility] UNIVERSIT - 5 5 Y [facility] T OFFICE 54064 [place] [facility]ANAR [facility] 5 5 [facility] T VISIT SERV ACH 15 FOUNDATIO MINUTES N OFFICE 98702 CARDIOVAS LISA OUTPATIEN 5 5 CULAR MAT T NEW 60 CONSULTAN MINUTES TS O OFFICE 51139 [facility] 5 5 ADULTS ADULTS T VISIT 15 MINUTES [facility] UNIVERSIT - 5 5 Y [facility] BAR - 5 5 [facility] UN[facility]IT - 4 4 Y [facility] T OFFICE 17183 [facility] 4 4 .ORG .ORG T VISIT 15 MINUTES HOSPITAL BAR - 4 4 [facility] BAR [facility] 4 4 [facility] 62680 [place] [facility] 4 4 [facility] T VISIT 5 INTERNAL MINUTES MED OFFICE 90120 [place] [facility] 4 4 [facility] T NEW 45 INTERNAL MINUTES MED EMERGENCY 28469 [facility] MARY ANNE 4 4 [facility] EMERGENCY T VISIT PHYS MODERATE SEVERITY
--- OUTSIDE RECORDS SUMMARY | 2017-02-09 17:20 | External Medical Summary Rpt | CCD ---
Author Author , GAUDENCIO Organization GAUDENCIO Address Unknown Phone [email or web address] Care Team Providers Care Attorney General Name Role Phone ABSNER KARAN, ABSNER Unavailable Unavailable KARAN [facility] Unavailable Unavailable [facility]ATOR[facility], [facility] Unavailable Unavailable LAB[facility]ATORI, [facility] LETHA PHIPPS MD, PSC, Unavailable [...] Unavailable FRYMAN EUG, FRYMAN Unavailable Unavailable EUG DREA, , SHEPARD, Unavailable Unavailable JR DREA, ELKeegan, Unavailable Unavailable DREA, ELKeegan ASHOK, ASHOK Unavailable Unavailable ASHOK RENU, ASHOK Unavailable Unavailable RENU SARAVIA III RAJINDER, Unavailable Unavailable SARAVIA III RAJINDER AUGUST LAUREL, AUGUST LAUREL Unavailable Unavailable [facility] Un[facility] Un[facility], [facility] Unavailable Unavailable HOSPITAL P, [facility] JIM FERNANDEZ Unavailable Unavailable JIM ANG, FERNANDEZ Unavailable Unavailable ANG [facility], Unavailable Unavailable [facility] ISABEL ZEV, ISABEL ZEV Unavailable Unavailable LE MARY ANNE, LE MARY ANNE Unavailable Unavailable JUETT TIFFANY, JUETT TIFFANY Unavailable Unavailable [facility], [facility] NURSE Unavailable Unavailable PRACTITIONER GR, KMSF NURSE PRACTITIONER GR [facility] Un[facility], [facility], Unavailable Unavailable [facility] Unavailable Unavailable [facility], [facility] Unavailable Unavailable [facility], [facility] Unavailable Unavailable [facility] MASKEY ABDI, MASKEY Unavailable Unavailable ABDI DIOP JAM, Unavailable Unavailable DIOP JAM [facility] Unavailable Unavailable MEDICAL, [facility] MEDICAL [facility] Unavailable Unavailable AMBULANCE SE, [facility] Un[facility] Unavailable Un[facility], Unavailable Unavailable PLL[facility], [facility], [facility] PAVEZ MAR, PAVEZ MAR Unavailable Unavailable [facility] [...] Unavailable Unavailable [facility] Unavailable Unavailable HOSPITALS, [facility], Unavailable Unavailable [facility], [facility] AND Unavailable Unavailable Purpose Continuity of Care Document - 09-01-2013 through 2016 Problems Code Diagnosis DOS Provider Status [id number] LUMBAGO 01-02-2017 [facility] LEFT SIDE C3490 MALIGNANT 12-28-2016 [facility] NEOPLASM PHYSICIANS UNS PART GROUP UNS BRONCHUS/BRUCE NG I119 HYPERTENSIV 12-28-2016 [facility] E HEART PHYSICIANS DISEASE GROUP WITHOUT HEART FAILURE I2510 ASHD [place] 12-28-2016 [facility] CORONARY PHYSICIANS ARTERY W/O GROUP ANGINA PECT[place]IS J449 CHRONIC 12-28-2016 [facility] OBSTRUCTIVE PHYSICIANS PULMONARY GROUP DISEASE UNS R0789 OTHER CHEST 12-28-2016 [facility] PAIN PHYSICIANS GROUP R9431 ABNORMAL 12-28-2016 [facility] ELECTROCARD PHYSICIANS IOGRAM GROUP R0600 DYSPNEA 12-26-2016 [facility] R079 CHEST PAIN 12-26-2016 [facility] R918 OTHER 12-26-2016 [place] NONSPECIFIC MEDICAL ABNORMAL IMAGING ASS FINDING OF LUNG FIELD Z9114 PATIENTS 12-26-2016 [facility] PHYS[facility]ANS, NONCOMPLIAN PLLC CE W/MEDICATIO N REGIMEN B182 CHRONIC 12-07-2016 [facility] HEPATITIS [facility] B1920 UNS VIRAL 12-01-2016 [facility]PAT[facility]IS [facility] SERV WITHOUT FOUNDATION HEPATIC COMA I10 ESSENTIAL 11-02-2016 [facility] HYPERTENSIO INC N I208 OTHER FORMS 11-02-2016 [facility] OF ANGINA PHYSICIANS PECTORIS GROUP J439 EMPHYSEMA 11-02-2016 [place] [facility] J90 PLEURAL 11-02-2016 [place] [facility] NOT IMAGING ASS ELSEWHERE CLASSIFIED R0602 SHORTNESS 11-02-2016 [facility] OF BREATH PHYSICIANS GROUP R222 LOCALIZED 11-02-2016 [facility] MASS AND INC LUMP TRUNK M461 SACROILIITI 10-10-2016 [facility] S NOT [facility] ELSEWHERE INC CLASSIFIED M5136 OT 10-10-2016 ALISSA OSEGUERA MD, PSC RAL DISC DEGEN LUMBAR REGION M791 MYALGIA 10-10-2016 [facility] INC C3432 MALIGNANT 10-05-2016 [facility] NEOPLASM PHYSICIANS LOWER LOBE GROUP LT BRONCHUS/BRUCE NG I214 NON-ST 10-05-2016 [facility] ELEVATION PHYSICIANS MYOCARDIAL GROUP INFARCTION E785 HYPERLIPIDE 09-21-2016 [facility] UNSPECIFIED INC I229 SUBSEQUENT 09-15-[address] [facility] [address] ELEV PHYSICIANS MYOCARDIAL GROUP INFARCT UNS SITE W47180 ASHD [place] 09-15-2016 [facility] COR ART PHYSICIANS W/OTH FORMS GROUP ANGINA PECTORIS I209 ANGINA 09-14-2016 [facility] UNSPECIFIED INC I249 ACUTE 09-10-2016 [facility]SCHEMIC [facility] HEART INC DISEASE UNSPECIFIED Z720 TOBACCO USE 09-10-2016 [facility] INC C3492 MALIGNANT 08-11-2016 [facility]M [facility] UNS PART INC LEFT BRONCHUS/BRUCE NG I313 PERICARDIAL 08-11-2016 [place] [facility] NONINFLAMMA IMAGING ASS TORY R932 ABNORMAL 06-01-2016 [facility] NURSE FIND ON DX PRACTITIONE IMAGING R GR LIVER & BILI TRACT K829 DISEASE OF 05-24-2016 [facility] GALLBLADDER SERV [facility] UNSPECIFIED N289 DISORDER OF 05-24-2016 [facility]TER [facility] UNSPECIFIED Z08 ENCOUNTER 05-10-2016 F/U EXAM [facility] NEOPLASM [id number] PERSONAL HX 05-10-2016 [facility] NEOPLASM HOSPITALS BRONCHUS & LUNG R530 NEOPLASTIC 04-26-2016 [facility] RELATED INC FATIGUE R911 SOLITARY 04-26-2016 [place] PULMONARY MEDICAL NODULE IMAGING ASS J40 BRONCHITIS 03-02-2016 [place] NOT MEDICAL SPECIFIED IMAGING ASS ACUTE OR CHRONIC E860 DEHYDRATION 12-31-2015 [facility] ALCALA, [facility] J701 CHRONIC & 12-31-2015 [facility] P MANIF DUE TO RADIATION K208 OTHER 12-31-2015 [facility] K209 ESOPHAGITIS 12-31-2015 [facility] ALCALA, UNSPECIFIED PLLC Z510 ENCOUNTER 12-30-2015 [facility] ANTINEOPLAS TIC RADIATION THERAPY J189 PNEUMONIA 12-22-2015 [facility] F UNSPECIFIED HOME ORGANISM MEDICAL EQUIPME D0222 CARCINOMA 12-21-2015 [facility] IN SITU OF PHYSICIANS LEFT GROUP BRONCHUS AND LUNG I252 OLD 12-21-2015 [facility] MYOCARDIAL PHYSICIANS INFARCTION GROUP I340 NONRHEUMATI 12-21-2015 [facility] MITRAL SERV VALVE FOUNDATION INSUFFICIEN CY I361 NONRHEUMATI 12-21-2015 [facility] TRICUSPID SERV VALVE FOUNDATION INSUFFICIEN CY I371 NONRHEUMATI 12-21-2015 [facility] PULMONARY SERV VALVE FOUNDATION INSUFFICIEN CY R748 ABNORMAL 12-21-2015 [facility] LEVELS OF PHYSICIANS OTHER SERUM GROUP ENZYMES R05 COUGH 12-20-2015 [facility] G893 NEOPLASM 11-30-2015 LETHA PHIPPS, RELATED , PSC PAIN ACUTE CHRONIC M5116 INTERVERTEB 11-30-2015 [facility] D/O INC W/RADICULOP ATHY LUMB RGN J42 UNSPECIFIED 10-21-2015 [facility] CHRONIC [facility] BRONCHITIS INC Z129 ENCOUNTER 10-19-2015 [place] SCREENING MEDICAL MALIGNANT IMAGING ASS NEOPLASM SITE UNS N261 ATROPHY OF 10-15-2015 [facility] TERMINAL C42578 PERSONAL 10-04-2015 [facility] NURSE HISTORY OF PRACTITIONE NICOTINE R GR DEPENDENCE J60 COALWORKERS 09-24-2015 [facility] PNEUMOCONIO FOUNDATION SIS J9809 OTHER 09-24-2015 [facility] DISEASES OF SERVICES BRONCHUS NEC R599 ENLARGED 09-24-2015 [facility] LYMPH NODES SERV [facility]OUND[facility] UNSPECIFIED Z0000 ENCOUNTER 09-08-2015 [facility] MED EXAM W/O ABNORMAL FIND M549 DORSALGIA 08-24-2015 [facility] UNSPECIFIED PHYSICIANS GROUP R938 ABNORMAL 08-24-2015 [facility] FIND ON DX PHYSICIANS IMAGING OTH GROUP SPEC BODY STRCT M1990 UNSPECIFIED 08-03-2015 [facility] PHYSICIANS OSTEOARTHRI GROUP TIS UNSPECIFIED SITE O70168 PAIN IN 08-03-2015 [facility] UNSPECIFIED PHYSICIANS HIP GROUP O07758 PAIN IN 06-15-2015 [facility] LEFT HIP [facility] INC M533 SACROCOCCYG 06-15-2015 [facility] DISORDERS INC NEC A39491 PAIN IN 04-05-2015 [place] RIGHT [facility]EE [facility] IM[facility]ING [facility] M6751 PLICA 04-05-2015 [facility]OME [facility] RIGHT KNEE INC L01920 SPONDYLOSIS 04-01-2015 [facility] W/O SERV MYELOPATH/R FOUNDATION ADICULOPATH Y LUMB RGN M545 LOW BACK 04-01-2015 [facility] PAIN [facility] M7052 OTHER 03-18-2015 [facility] BURSITIS OF PHYSICIANS KNEE LEFT GROUP KNEE I200 UNSTABLE 03-16-2015 [facility] O M1612 UNILATERAL 02-17-2015 [place] [facility]IMARY [facility] OSTEOARTHRI IMAGING ASS TIS LEFT HIP M1711 UNILATERAL 02-17-2015 [place] [facility] OSTEOARTHRI IMAGING ASS TIS RIGHT KNEE R35953 EFFUSION 02-17-2015 [place] RIGHT [facility] MEDICAL IMAGING ASS R350 FREQUENCY 02-12-2015 [facility] MICTURITION LA B952 ENTEROCOCCU 02-11-2015 [facility] S CAUSE OF VALLEY DZ INTERNAL CLASSIFIED MED ELSEWHERE G8929 OTHER 02-11-2015 [facility] CHRONIC VALLEY PAIN INTERNAL MED N390 URINARY 02-11-2015 [facility] TRACT VALLEY INFECTION INTERNAL SITE NOT MED SPECIFIED M5117 INTERVERTEB 02-10-2015 [place] [facility] MEDICAL D/O IMAGING ASS W/RADICULOP ATHY LS RGN M5416 RADICULOPAT 02-10-2015 [facility] HY LUMBAR [facility] REGION INC J209 ACUTE 01-29-2015 [facility] BRONCHITIS VALLEY UNSPECIFIED INTERNAL MED K219 GASTRO-ESOP 01-29-2015 [facility] H REFLUX VALLEY DISEASE INTERNAL WITHOUT MED ESOPHAGITIS 7246 DISORDERS 12-15-2014 [facility] 5990 URINARY 11-10-2014 [facility] TRACT ESOTERIC INFECTION LABORATORI SITE NOT SPECIFIED 52018 CERV HIGH 11-10-2014 [facility] PAPILLOMAVI CARE P RADHA DNA TEST POS V7241 11-10-2014 [facility] EXAMINATION [facility] WOMENS OR TEST CARE P NEGATIVE RESULT V7612 OTHER 10-15-2014 [place] SCREENING MEDICAL MAMMOGRAM IMAGING ASS V7231 ROUTINE 10-07-2014 [facility] [place] EXAMINATION 61875 GENERALIZED 09-25-2014 [facility] ANXIETY RG DISORDER 89816 OBSTRUCTIVE 08-21-2014 [facility] SLEEP HOME APNEA MEDICAL EQUIPME 95029 CORONARY 07-24-2014 [facility] ATHEROSCLER VALLEY OSIS [place] INTERNAL CORONARY MED ARTERY 496 CHRONIC 07-24-2014 [facility] AIRWAY [place] OBSTRUCTION INTERNAL NEC MED 58916 INSOMNIA 07-24-2014 [facility] UNSPECIFIED VALLEY INTERNAL MED 55687 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 2724 OTHER AND 06-16-2014 [facility] UNSPECIFIED [facility] HYPERLIPIDE O PAUL 4139 OTHER AND 06-16-2014 [facility] UNSPECIFIED LAR [place] [address] COR 06-16-2014 [facility] ATHEROSLERO LAR UNSPEC CONSULTANTS TYPE VESSEL O [place]/BUCK T 7862 COUGH 06-16-2014 [facility] 4111 INTERMEDIAT 06-11-2014 [facility] E CORONARY LAR SYNDROME CONSULTANTS O 412 OLD 06-11-2014 [facility] MYOCARDIAL REGIONAL INFARCTION MEDICAL 97722 CHRONIC 06-10-2014 [facility] WITHOUT MENTION HEPATIC COMA 60907 UNSPEC HTN 06-08-2014 [facility] HEART LAR DISEASE CONSULTANTS WITHOUT O HEART FAIL 79021 ACUT 06-08-2014 [facility] MYOCARD LAR INFARCT UNS CONSULTANTS SITE EPIS O CARE UNS 45529 UNSPECIFIED 05-20-2014 [facility] HEPATITIS C W/O HEPATIC COMA 2883 EOSINOPHILI 05-20-2014 [facility] 7906 OTHER 05-20-2014 [facility] BLOOD CHEMISTRY 63465 ABDOMINAL 02-26-2014 [facility] PAIN, [facility] UNSPECIFIED INC SITE 7948 NONSPECIFIC 02-26-2014 [facility] ABNORMAL [facility] RESULTS INC LIVR FUNCTION STUDY 11719 NAUSEA 01-29-2014 [place] [facility]ONE [facility] 7905 OTHER 01-29-2014 [place] NONSPECIFIC MEDICAL ABNORMAL IMAGING ASS SERUM ENZYME LEVELS 5739 UNSPECIFIED 01-22-2014 [facility] DISORDER [place] [facility] L[facility] HOLDINGS 17771 PAIN IN 01-20-2014 [facility] [place] PELVIC [...] ia de te s n re d OM 68 09 10 30 30 00 [...] 20 MA CY MG TA BL ET ME 57 10 10 45 30 00 CL Ac TO 23 -0 -2 .0 00 IN ti UT 70 2- 7- 00 00 IC ve OL 10 20 20 44 OL 19 17 17 03 PH 9 71 AR TA MA RT CY RA TE 50 MG TA B NI 43 10 10 25 5 00 CL Ac TR 59 -0 -2 .0 00 IN ti OG 80 3- 7- 00 00 IC ve LY 43 20 20 44 CE 61 17 17 26 PH RI 1 52 AR N MA 0. CY 4 MG TA BL ET SL AZ 50 10 10 6. 5 00 [...] CY LA TE 5 MG TA B IS 62 09 10 30 30 00 [...] 20 MA CY MG TA BL ET UT 00 09 10 39 12 00 CL [...] CO CY D #3 TA BL ET NI 43 09 10 25 8 00 WA Ac TR 59 -1 -1 .0 00 L- ti OG 80 4- 3- 00 07 MA ve LY 43 20 20 50 RT CE 61 17 17 96 RI 1 16 PH N AR 0. MA 4 CY MG #5 TA 91 BL ET SL GA 43 09 10 40 1 00 WA Ac 38 -1 -0 00 00 L- ti LY 60 3- 6- .0 07 MA ve TE 09 20 20 00 50 RT -G 01 17 17 57 9 77 PH SO AR BRUCE MA TI CY ON #5 91 AZ 68 09 10 6. 5 00 CL Ac IT 18 -1 -0 00 00 IN ti HR 00 2- 6- 0 00 IC ve OM 16 20 20 44 YC 01 17 17 23 PH IN 3 25 AR MA 25 CY 0 MG TA BL ET BE 67 09 10 24 4 00 CL Ac NZ 87 -1 -0 .0 00 IN ti ON 70 2- 6- 00 00 IC ve AT 10 20 20 44 AT 50 17 17 23 PH E 1 26 AR 10 MA 0 CY MG CA PS UL E NI 59 09 10 25 5 00 CL Ac TR 76 -1 -0 .0 00 IN ti OG 23 1- 6- 00 00 IC ve LY 30 20 20 43 CE 40 17 17 34 PH RI 3 22 AR N MA 0. CY 4 MG TA BL ET SL NI 59 08 09 25 5 00 [...] 23 -2 -2 .0 00 IN ti UT 70 6- 1- 00 00 IC ve [...] 23 -2 -2 .0 00 IN ti UT 70 5- 3- 00 00 IC ve [...] CY 5 MG /[address] ME 00 03 04 45 30 00 CL Ac TO 59 -3 -2 .0 00 IN ti UT 10 1- 8- 00 00 IC ve [...] CY 0 MG TA BL ET GA 67 03 04 90 30 00 CL Ac BA 87 -3 -2 .0 00 IN ti PE 70 1- 8- 00 00 IC ve NT 22 20 20 42 IN 40 17 17 69 PH 1 41 AR 40 MA 0 CY MG CA PS UL E OM 55 03 03 60 30 00 [...] 64 -1 -1 .0 00 L- ti UT 50 6- 7- 00 07 MA ve [...] CY 20 MG CA PS UL E UT 00 12 01 24 24 00 CL [...] 64 -2 -2 .0 00 L- ti UT 50 6- 0- 00 07 MA ve OL 19 20 20 45 RT OL 05 16 17 15 9 92 PH TA AR RT MA RA CY TE #5 50 91 MG TA B Procedures Procedure DOS Code Location Performer Comment RADIOLOGI 38033 [place] NATHANAEL Arceo EXAM 7 MEDICAL CHEST 2 IMAGING VIEWS ASS FRONTAL&L ATERAL ECG 81631 [facility] GARCÍA ROUTINE 7 PHYSICIAN ECG S, PLLC W/LEAST 12 LDS I&R ONLY LIVER 34305 BILL [facility] ELASTOGRA 7 MEDICAL PHY W/O SERV IMAG FOUNDATIO W/[place] [address] BILL [place] ABDOMINAL 7 MEDICAL REAL SERV TIME FOUNDATIO W/IMAGE N DOCUMENTA TION DUP-SCAN 15056 BILL [place] ARTL JULIO 7 MEDICAL ABDL/PEL/ SERV SCROT&/RP FOUNDATIO R ORGN N COM ECG 36313 [facility] ROUTINE 7 PHYSICIAN ECG S GROUP W/LEAST 12 LDS I&R ONLY ECG 81579 [facility] ROUTINE 7 [facility] ECG INC INC W/LEAST 12 LDS TRCG ONLY W/O I&R CREATININ 74391 [facility] E BLOOD 7 [facility] INC INC UNCLASSIF J3490 [facility] IED DRUGS 7 [place] [address] [facility] UREA 7 [facility] NITROGEN INC INC QUANTITAT KATY CT THORAX 20371 [place] NATHANAEL W/O & 7 MEDICAL W/CONTRAS IMAGING T ASS MATERIAL RADIOLOGI 00097 [place] ERROLINEKE C 7 MEDICAL EXAMINATI IMAGING ON CHEST ASS [place] FRONTAL ECG 92919 JA[facility] ASHOK ROUTINE 7 PHYSICIAN ECG S, PLLC W/LEAST 12 LDS I&R ONLY AMB A0427 ELISSA BOWERS SERVICE [address] [place] [address] ALS AMBULANCE AMBULANCE EMERGENCY SE SE TRANSPORT LEVEL 1 GROUND A0425 ELISSA BOWERS MILEAGE [address] [place] [address] PER AMBULANCE AMBULANCE STATUTE SE SE MILE ECG 53004 [facility] ROUTINE 7 [facility] ECG INC INC W/LEAST 12 LDS TRCG ONLY W/O I&R UNCLASSIF J3490 [facility] IED DRUGS 7 [facility] [place] [address] LETHA DUFF JOINT 7 MD MOISE, ARTHRGRPH PSC Y&/ANES/S TEROID W/NERY CATH PLMT 45793 [facility] LISA L HRT & 7 PHYSICIAN ARTS S GROUP W/NJX & ANGIO IMG S&I ECG 00129 [facility] ROUTINE 7 [facility] ECG INC INC W/LEAST 12 LDS TRCG ONLY W/O I&R ECG 98015 [facility] ROUTINE 7 [facility] ECG INC INC W/LEAST 12 LDS TRCG ONLY W/O I&R CREATINE 42350 [facility] KINASE 7 [facility] [place] [address] [facility] TROPONIN 7 [facility] QUANTITAT INC INC KATY BLOOD 48545 [facility] COUNT 7 [facility] COMPLETE INC INC AUTO&AUTO DIFRNTL WBC LIPID 37948 [facility] PANEL 7 [facility] INC INC UNCLASSIF J3490 [facility] IED DRUGS 7 [facility] INC INC RADIOLOGI 54168 [facility] C EXAM 7 [facility] CHEST 2 INC INC VIEWS FRONTAL&L ATERAL CREATINE 10873 [facility] KINASE MB 7 [facility] H[facility] FRACTION INC INC ONLY COMPREHEN 95945 [facility] SIVE 7 [facility]OS[facility] METABOLIC INC INC PANEL OBSERVATI 93984 [facility] ASHOK ON/INPATI 7 PHYSICIAN ENT S GROUP HOSPITAL CARE 50 MINUTES HOSPITAL G0378 [facility] OBSERVATI 7 [facility] HOS[facility] ON INC INC SERVICE PER HOUR GROUND A0425 ELISSA BOWERS [address] PER AMBULANCE AMBULANCE STATUTE SE SE MILE AMB A0427 ELISSA BOWERS SERVICE [address] [place] [address] ALS AMBULANCE AMBULANCE EMERGENCY SE SE TRANSPORT LEVEL 1 RADIOLOGI 38734 [facility] C EXAM 7 MEDICAL CHEST 2 IMAGING VIEWS ASS FRONTAL&L ATERAL ECG 51682 [facility] ROUTINE 7 [facility] W/LEAST P 12 LDS I&R ONLY BLOOD 41950 [facility] COUNT 7 [facility] COMPLETE INC INC AUTO&AUTO DIFRNTL WBC CT THORAX 57697 [facility] W/O 7 [facility]OS[facility] CONTRAST INC INC MATERIAL COMPREHEN 26638 [facility] SIVE 7 [facility]OS[facility] METABOLIC INC INC PANEL COLLECTIO 34129 [facility] N VENOUS 7 [facility]OS[facility] BLOOD INC INC VENIPUNCT URE COLLECTIO 94624 [facility] N VENOUS 7 [facility] BLOOD INC INC VENIPUNCT URE PROTHROMB 96533 [facility] IN TIME 7 [facility] INC INC COMPREHEN 69471 [facility] SIVE 7 [facility]OS[facility] METABOLIC INC INC PANEL BLOOD 97534 [facility] COUNT 7 [facility] COMPLETE INC INC AUTO&[place] [address] [facility] ABDOMINAL 7 [facility] REAL E E TIME [facility] W/IMAGE DOCUMENTA TION DUP-SCAN 97574 [facility] ARTL JULIO 7 [facility] HEALTHCAR ABDL/PEL/ E E SCROT&/RP [facility] R ORGN COM UNCLASSIF J3490 [facility] IED DRUGS 7 [facility] INC INC CT THORAX 11762 [facility] 7 [facility] W/[place] [address] [facility] ABDOMEN & 7 [facility]OS[facility] PELVIS INC INC W/CONTRAS T MATERIAL COMPREHEN 78108 [facility] SIVE 7 [facility] METABOLIC INC INC PANEL COLLECTIO 14880 [facility] N VENOUS 7 [facility] BLOOD INC INC VENIPUNCT URE BLOOD 40221 [facility] COUNT 7 [facility] COMPLETE INC INC AUTO&AUTO DIFRNTL WBC THERAPEUT 49997 [facility] IC 6 PHYSICIAN PHYSICIAN PROPHYLAC S GROUP S GROUP TIC/DX INJECTION SUBQ/IM INJECTION J0696 [facility] FRYMAN 6 PHYSICIAN EUG CEFTRIAXO S GROUP NE SODIUM PER 250 MG RADIOLOGI 03119 CURTIS HUFFMAN ALL C EXAM 6 MEDICAL CHEST 2 IMAGING VIEWS ASS FRONTAL&L ATERAL COMPREHEN 86413 [facility] SIVE 6 [facility] METABOLIC INC INC PANEL COLLECTIO 82314 [facility] N VENOUS 6 [facility] [place] [address] CURTIS HUFFMAN ALL ABDOMEN & 6 MEDICAL PELVIS IMAGING W/O ASS CONTRAST MATERIAL CT THORAX 27114 [facility] HU[facility]MAN ALL W/O 6 MEDICAL CONTRAST IMAGING MATERIAL ASS BLOOD 88933 [facility] COUNT 6 [facility] COMPLETE INC INC AUTO&AUTO DIFRNTL WBC SBSQ [address] 15 MINUTES RADIOLOGI 03619 CURTIS HUFFMAN ALL C 6 MEDICAL EXAMINATI IMAGING ON CHEST ASS SING[place]IEW FRONTAL ECG 90096 [facility] ROUTINE [address] [place] [address] W/LEAST P 12 LDS I&R ONLY INITIAL [address] 30 MINUT[address] RADIATION [id number] [place] [place] [address] DELIVERY 1 MEV => COMPLEX RADIATION [id number] [place] [place] [address] DELIVERY 1 MEV => COMPLEX RADIATION [address] DELIVERY 1 MEV => COMPLEX RADIATION [address] DELIVERY 1 MEV => COMPLEX RADIATION [id number] [place] [address] DELIVERY 1 MEV => COMPLEX THERAPEUT [address] PORT IMAGES(S) OBSERVATI 46364 [facility] FRYMAN ON CARE 6 PHYSICIAN EUG DISCHARGE S GROUP MANAGEMEN T SBSQ 88145 [facility] 6 PHYSICIAN MAT CARE/DAY S GROUP 15 MINUTES ADMN SET A7003 LU[facility] F LUIS F SM VOL 6 HOME HOME NONFILTR MEDICAL MEDICAL PNEUMAT EQUIPME EQUIPME NEBULIZR DISPBL NEBULIZER E0570 LUIS F KERNS WITH 6 HOME HOME COMPRESSO MEDICAL MEDICAL R EQUIPME EQUIPME UNCLASSIF J3490 [facility] IED DRUGS 6 [facility] INC INC INITIAL 56019 [facility] 6 PHYSICIAN MAT CARE/DAY S GROUP 70 MINUTES SBSQ 31536 [facility] OBSERVATI 6 [facility] ON HOSPITAL CARE/DAY 15 MINUTES UNCLASSIF J3490 [facility] IED DRUGS 6 [facility] INC INC ECHO 35637 [facility] TTHRC R-T 6 [facility] H[facility] 2D INC INC W/WOM-MOD E COMPL SPEC&COLR D HOSPITAL G0378 [facility] OBSERVATI 6 [facility] ON INC INC SERVICE PER HOUR INITIAL 67797 [facility] OBSERVATI 6 [facility] ON HOSPITAL CARE/DAY 30 MINUTES HOSPITAL G0378 [facility] OBSERVATI 6 [facility] ON INC INC SERVICE PER HOUR ECG 02200 BAR RANGEL ROUTINE 6 [facility] W/LEAST P 12 LDS I&R ONLY URNLS DIP 14516 [facility] 6 [facility] STICK/TAB INC INC [place] [address] [facility] TROPONIN 6 [facility] QUANTITAT INC INC KATY SMR PRIM 90238 [facility] SRC 6 [facility] GRAM/GIEM INC INC SA STAIN BCT FUNGI/SUSI L BLOOD 02945 [facility] COUNT 6 [facility] COMPLETE INC INC AUTO&[place] [address] [facility] LIPASE 6 [facility] INC INC CREATINE 41900 [facility] KINASE 6 [facility] TOTAL INC INC UNCLASSIF J3490 [facility] IED DRUGS 6 [facility] INC INC CUL BACT 92962 [facility] AEROBIC 6 [facility] ADDL INC INC METHS DEFINITIV E EA ISOL CT THORAX 17722 CURTIS LR W/O & 6 [facility] W/[place] [address] [facility] ANGIOGRAP 6 [facility] HY CHEST INC INC W/CONTRAS T/NONCONT RAST COLLECTIO 88229 [facility] N VENOUS 6 [facility] BLOOD INC INC VENIPUNCT URE COMPREHEN 71903 [facility] SIVE 6 [facility] [place] [address] [facility] LACTATE 6 [facility] INC INC CULTURE 40228 [facility] BACTERIAL 6 [facility] BLOOD INC INC AEROBIC W/ID ISOLATES SUSCEPTIB 33503 [facility] LTY STDY 6 [facility] ANTIMICRB INC INC IAL MICRO/AGA R DILUTJ RADIOLOGI 78311 [facility] C EXAM 6 [facility] CHEST 2 INC INC VIEWS FRONTAL&[place] [address] [facility] AMYLASE 6 [facility] INC INC CREATINE 10243 [facility] KINASE MB 6 [facility] [place] [address] [facility] INFUSION 6 [facility] THER INC INC PROPH ADDL SEQUENTIA L TO 1 HR ECG 46454 [facility] ROUTINE 6 [facility] ECG INC INC W/LEAST 12 LDS TRCG ONLY W/O I&R RADIATION [id number] [place] [place] [address] DELIVERY 1 MEV => COMPLEX RADIATION [id number] [place] [address] DELIVERY 1 MEV => COMPLEX RADIATION [address] [place] [address] DELIVERY 1 MEV => COMPLEX RADIATION [address] [place] [address] DELIVERY 1 MEV => COMPLEX CONTINUIN [address] [place] RADIATION [address] [place] [address] DELIVERY 1 MEV => COMPLEX RADIATION [address] [place] [address] Y Y [facility] DELIVERY 1 MEV => COMPLEX RADIATION [address] DELIVERY 1 MEV => COMPLEX COMPREHEN 24425 [facility] SIVE 6 [facility] METABOLIC INC INC PANEL UNCLASSIF J3490 BAR [facility]ED DRUGS 6 [facility] INC INC CHEMOTX 67438 BAR [facility] ADMN IV 6 [facility] NFS TQ EA INC INC SEQL NFS TO 1 HR BLOOD 75621 [facility] COUNT 6 [facility] COMPLETE INC INC AUTO&AUTO DIFRNTL WBC CHEMOTHER 95540 BAR D[facility] APY ADMN 6 [facility] IV INC INC INFUSION TQ EA HR CHEMOTX 01310 BAR D[facility] ADMN IV 6 [facility] NFS TQ UP INC INC 1 HR SBST/DRUG RADIATION 21168 [place] [address] Y [facility] DELIVERY 1 MEV => COMPLEX RADIATION [address] DELIVERY 1 MEV => COMPLEX CONTINUIN 36500 [facility] 6 Y Y [facility] [place] RADIATION [address] DELIVERY 1 MEV => COMPLEX THER RAD 66442 [facility] 6 Y Y [facility] FIELD SETTING SIMPLE RADIATION [address] DELIVERY 1 MEV => COMPLEX THERAPEUT 50118 [place] [address] Y Y [facility] PORT IMAGES(S) RADIATION [address] DELIVERY 1 MEV => COMPLEX RADIATION [address] DELIVERY 1 MEV => COMPLEX RADIATION [address] DELIVERY 1 MEV => COMPLEX RADIATION 47283 [place] [address] Y Y [facility] DELIVERY 1 MEV => COMPLEX THERAPEUT 61342 [place] [address] Y Y [facility] PORT IMAGES(S) RADIATION 01759 [place] [address] Y Y [facility] DELIVERY 1 MEV => COMPLEX RADIATION 34886 [place] [address] Y Y [facility] DELIVERY 1 MEV => COMPLEX TELETHX 23110 [facility] ISODOSE 6 Y Y PLN [facility] [place] [address] [place] [address] Y Y [facility] CONSTRUCT ION COMPLEX RADIATION [address] Y [facility] DELIVERY 1 MEV => COMPLEX THERAPEUT 10014 [place] [address] Y Y [facility] PORT IMAGES(S) RADIATION 91725 [place] [address] Y Y [facility] DELIVERY 1 MEV => COMPLEX RADIATION 58484 [place] [address] Y Y [facility] DELIVERY 1 MEV => COMPLEX UNCLASSIF J3490 BAR D[facility] IED DRUGS 6 [facility] INC INC BLOOD 72950 ABR DINERO COUNT 6 [facility] COMPLETE INC INC AUTO&AUTO DIFRNTL WBC CHEMOTHER 50885 BAR D[facility] APY ADMN 6 [facility] IV INC INC INFUSION TQ EA HR CHEMOTX 30653 BAR D[facility]ERO ADMN IV 6 [facility] NFS TQ EA INC INC SEQL NFS TO 1 HR BASIC 75746 BAR [facility] METABOLIC 6 [facility] PANEL INC INC CALCIUM TOTAL CHEMOTX 25424 BARCODY DINERO ADMN IV 6 [facility] NFS TQ UP INC INC 1 HR SBST/DRUG RADIATION 13127 [place] [address] Y Y [facility] DELIVERY 1 MEV => COMPLEX 3-D 25900 [facility] [place] [address] [facility] Y [facility] CONSTRUCT ION COMPLEX THER RAD 49109 [facility] SIMULAJ-A 6 Y Y [facility] FIELD SETTING COMPLEX SPMTRY 57899 BILL DIOP W/VC 6 MEDICAL JAM EXPIRATOR SERV Y JULIO FOUNDATIO W/WO MXML N VOL VNTJ BRNCDILAT 75006 [facility] RSPSE 6 [facility] SPMTRY INC INC PRE&POST- BRNCDILAT ADMN GAS 31860 BAR D[facility]ERO DILUT/WAS 6 [facility] HOUT LUNG INC INC VOL W/WO DISTRIB VENT&[place] [address] BAR DINERO DIFFUSING 6 [facility] CAPACITY INC INC PLETHYSMO 68608 BILL DIOP GRAPHY 6 MEDICAL JAM LUNG SERV VOLUMES FOUNDATIO W/WO N AIRWAY RESIST UNCLASSIF J3490 BAR DINERO IED DRUGS 6 [facility] INC INC MRI BRAIN 64080 BAR D[facility] BRAIN 6 [facility] STEM W/O INC INC W/CONTRAS T MATERIAL PET 84793 [facility] IMAGING [address] [facility] ATTENUATI ON SKULL BASE MID-THIGH FLUORODEO A9552 [facility] XYGLUCOSE 6 Y Y F-18 FDG [facility] DX UP [place] [address] [place] [address] BAR DINERO UREA 6 [facility] NITROGEN INC INC QUANTITAT KATY COLLECTIO 41332 BAR Smith VENOUS 6 [facility] BLOOD INC INC VENIPUNCT URE CREATININ 41636 BAR DINERO E BLOOD 6 [facility] INC INC CYTP FINE 35047 [place] LEON NDL 6 MEDICAL KARAN ASPIRATE SERV IMMT FOUNDATIO CYTOHIST N STD EA EVAL BRONCHOSC 47315 [place] MASKEY OPY 6 MEDICAL ABDI W/TRANSBR SERV ONCL NDL FOUNDATIO ASPIR BX N EA LOBE IMHISTOCH 46013 [place] LEON EM/CYTCHM 6 MEDICAL KARAN EA ADDL SERV ANTIBODY FOUNDATIO SLIDE N CYTP FINE 67400 BILL QUINTERO NDL 6 MEDICAL KARAN ASPIRATE SERV IMMT FOUNDATIO CYTOHIST N STD DX 1ST CYTP EVAL 41452 BILL QUINTERO FINE 6 MEDICAL KARAN NEEDLE SERV ASPIRATE FOUNDATIO INTERP & [place] [address] BILL QUINTERO SURG 6 MEDICAL KARAN PATHOLOGY SERV FOUNDATIO GROSS&RENU N ROSCOPIC EXAM IMHISTOCH 55597 BILL QUINTERO EM/CYTCHM 6 MEDICAL KARNA 1ST SERV ANTIBODY FOUNDATIO STAIN N PROCEDURE BRNCHSC 06570 BILL MASK[place]ASH EBUS 6 MEDICAL ABDI GUIDED SERV SAMPL 3/> FOUNDATIO NODE N STATION/S TRUX ANESTHESI 47679 BILL AGGARWALJAY JAY A CLOSED 6 MEDICAL BIENVENIDO CHEST SERVICES W/BRONCHO SCOPY NOS BRONCHOSC 52663 BILL MASKEY OPY 6 MEDICAL ABDI BRONCHIAL SERV /ENDOBRNC FOUNDATIO L BX 1+ N SITES BRONCHOSC 36332 BILL MASKEY OPY 6 MEDICAL ABDI NEEDLE BX SERV TRACHEA FOUNDATIO MAIN N STEM&/BRO N ECG 84898 [facility] ROUTINE 6 Y Y ECG [facility]OSP[facility] W/LEAST 12 LDS TRCG ONLY W/O I&R ECG 72532 BILL LAGUNAO ROUTINE 6 MEDICAL ECG SERV W/LEAST FOUNDATIO 12 LDS N I&R ONLY SPMTRY 42206 BILL DIOP W/VC 6 MEDICAL JAM EXPIRATOR SERV Y JULIO FOUNDATIO W/[place] [address] BILL DIOP DIFFUSING 6 MEDICAL JAM CAPACITY SERV FOUNDATIO N PULMONARY 45154 [place] DIOP STRESS 6 MEDICAL JAM TESTING SERV SIMPLE FOUNDATIO N CT THORAX 52934 [place] BEINEKE 6 MEDICAL EDWIN W/CONTRAS IMAGING T ASS MATERIAL CREATININ 19824 BAR Ballard BLOOD 6 [place] [address] BAR DINERO UREA 6 [facility] NITROGEN INC INC QUANTITAT KATY COLLECTIO 10211 BAR Smith VENOUS 6 [facility] BLOOD INC INC VENIPUNCT URE LIVER 57651 BILL CARDENAS ELASTOGRA 6 MEDICAL KUSH PHY W/O SERV IMAG FOUNDATIO W/I&R N COMPREHEN 59975 [place] [facility] SIVE 6 [facility] METABOLIC E E PANEL [facility] COLLECTIO 08063 [facility] N VENOUS 6 [facility]ALTHCAR HEALTHCAR BLOOD E E VENIPUNCT [facility] URE PROTHROMB 80211 [facility] IN TIME 6 [facility]ALTHCAR HEALTHCAR E E [facility] IADNA 11772 [facility] HEPATITIS 6 [facility]ALTHCAR HEALTHCAR C QUANT E E & REVERSE [facility] TRANSCRIP TION BLOOD 25787 [facility] COUNT 6 [facility]ALTHCAR HEALTHCAR COMPLETE E E AUTOMATED [facility]ITALS THERAPEUT 81496 BAR REINOSOON IC PX 1/> 6 [facility] AREAS INC INC EACH 15 MIN EXERCISES THERAPEUT 72236 BAR REINOSOON IC PX 1/> 6 [facility] AREAS INC INC EACH 15 MIN EXERCISES THERAPEUT 04656 BAR REINOSOON IC PX 1/> 6 [facility] AREAS INC INC EACH 15 MIN EXERCISES THERAPEUT 58518 BAR BAR IC PX 1/> 6 [facility] AREAS INC INC EACH 15 MIN EXERCISES APPL 77745 BAR DINERO MODALITY 6 [facility] 1/> AREAS INC INC ULTRASOUN D EA 15 MIN MANUAL 42869 BAR DINERO THERAPY 6 [facility] TQS 1/> INC INC REGIONS EACH 15 MINUTES THERAPEUT 56695 BAR REINOSOON IC PX 1/> 6 [facility] AREAS INC INC EACH 15 MIN EXERCISES THERAPEUT 50599 BAR REINOSOON IC PX 1/> 6 [facility] AREAS INC INC EACH 15 MIN EXERCISES THERAPEUT 54625 BAR BAR IC PX 1/> 6 [facility] AREAS INC INC EACH 15 MIN EXERCISES THERAPEUT 88507 BAR REINOSOON IC PX 1/> 6 [facility] AREAS INC INC EACH 15 MIN EXERCISES MANUAL 41424 BAR REINOSOON THERAPY 6 [facility] TQS 1/> INC INC REGIONS EACH 15 MINUTES APPL 04487 BAR DINERO MODALITY 6 [facility] 1/> AREAS INC INC ULTRASOUN D EA 15 MIN PHYSICAL 66987 BAR DINERO THERAPY 6 [facility] EVALUATIO INC INC N THERAPEUT 46456 [place] CLAIRE IC 6 [facility] PROPHYLAC INTERNAL TIC/DX MED INJECTION SUBQ/IM INJECTION J3301 [place] BESSON 6 [place] TRIAMCINO INTERNAL LONE MED ACETONIDE NOS 10 MG COLLECTIO 76302 BAR DINERO N VENOUS 6 [facility] BLOOD INC INC VENIPUNCT URE COMPREHEN 93775 BAR DINERO SIVE 6 [facility] METABOLIC INC INC PANEL CREATINE 51976 BAR DINERO KINASE MB 6 [facility] FRACTION INC INC ONLY RADIOLOGI 62386 BAR DINERO C EXAM 6 [facility] CHEST 2 INC INC VIEWS FRONTAL&L ATERAL ECG 37954 BAR DINERO ROUTINE 6 [facility] ECG INC INC W/LEAST 12 LDS TRCG ONLY W/O I&R CREATINE 94334 BAR DINERO KINASE 6 [facility] TOTAL INC INC BLOOD 44718 BAR DINERO COUNT 6 [facility] COMPLETE INC INC AUTO&[place] [address] BAR DINERO TROPONIN 6 [facility] QUANTITAT INC INC KATY ECG 43937 BAR RANGEL ROUTINE 6 [facility] W/LEAST P 12 LDS I&R ONLY DRUG TEST G0481 BAR DINERO DEFINITV 6 [facility] DR ID INC INC METH P DAY 8-14 [place] 9[address] BAR DINERO JT LOWER 5 [facility] EXTREM INC INC W/O CONTRAST MATRL SLCTV 34633 CARDIOVAS LISA CATH 5 CULAR MAT 1STORD CONSULTAN W/WO ART TS O PUNCT/FLU OR/S&I MARKOS CATH PLMT 87031 CARDIOVAS LISA L HRT & 5 CULAR MAT ARTS CONSULTAN W/NJX & TS O ANGIO IMG S&I RADEX HIP 10737 BAR DINERO 5 [facility] UNILATERA INC INC L COMPLETE MINIMUM 2 VIEWS RADIOLOGI 83906 BAR DINERO C 5 [facility] EXAMINATI INC INC ON KNEE 3 VIEWS CULTURE 44596 COMBINED COMBINED BACTERIAL 5 PHYSICIAN PHYSICIAN S LIANE S LA QUANTTATI VE COLONY COUNT URINE URNLS DIP 89441 [place] MARTINEZ 5 [facility] STICK/TAB INTERNAL LET RGNT MED NON-AUTO W/O MICRSCP 3D 25469 BAR D[facility] RENDERING 5 [facility] W/INTERP INC INC & POSTPROCE SS SUPERVISI ON MRI 08651 BAR D[facility]ERO SPINAL 5 [facility] CANAL INC INC LUMBAR W/O CONTRAST MATERIAL THERAPEUT 00019 BAR DINERO IC PX 1/> 5 [facility] AREAS INC INC EACH 15 MIN EXERCISES THERAPEUT 45561 BAR DINERO IC PX 1/> 5 [facility] AREAS INC INC EACH 15 MIN EXERCISES APPL 89865 BAR D[facility]ERO MODALITY 5 [facility] 1/> AREAS INC INC ULTRASOUN D EA 15 MIN APPL 12945 BAR D[facility]ERO MODALITY 5 [facility] 1/> AREAS INC INC ULTRASOUN D EA 15 MIN MANUAL 12123 BAR D[facility]ERO THERAPY 5 [facility] TQS 1/> INC INC REGIONS EACH 15 MINUTES THERAPEUT 75462 BAR DINERO IC PX 1/> 5 [facility] AREAS INC INC EACH 15 MIN EXERCISES THERAPEUT 41965 BAR DINERO IC PX 1/> 5 [facility] AREAS INC INC EACH 15 MIN EXERCISES APPL 92837 BAR D[facility]ERO MODALITY 5 [facility] 1/> AREAS INC INC IONTOPHOR ESIS EA 15 MIN UNCLASSIF J3490 BAR DINERO IED DRUGS 5 [facility] INC INC UNCLASSIF J3490 BAR DINERO IED DRUGS 5 [facility] INC INC APPL 77728 BAR DINERO MODALITY 5 [facility] 1/> AREAS INC INC IONTOPHOR ESIS EA 15 MIN THERAPEUT 83584 BAR DINERO IC PX 1/> 5 [facility] AREAS INC INC EACH 15 MIN EXERCISES MANUAL 97117 BAR D[facility]ERO THERAPY 5 [facility] TQS 1/> INC INC REGIONS EACH 15 MINUTES APPL 12966 BAR DINERO MODALITY 5 [facility] 1/> AREAS INC INC ULTRASOUN D EA 15 MIN APPL 74551 BAR DINERO MODALITY 5 [facility] 1/> AREAS INC INC ULTRASOUN D EA 15 MIN THERAPEUT 16249 BAR DINERO IC PX 1/> 5 [facility] AREAS INC INC EACH 15 MIN EXERCISES APPL 62883 BAR DINERO MODALITY 5 [facility] 1/> AREAS INC INC TRACTION MECHANICA L THERAPEUT 92244 BAR DINERO IC PX 1/> 5 [facility] AREAS INC INC EACH 15 MIN EXERCISES APPL 71691 BAR DINERO MODALITY 5 [facility] 1/> AREAS INC INC IONTOPHOR ESIS EA 15 MIN UNCLASSIF J3490 BAR DINERO IED DRUGS 5 [facility] INC INC APPL 44053 BAR DINERO MODALITY 5 [facility] 1/> AREAS INC INC ULTRASOUN D EA 15 MIN MANUAL 37799 BAR D[facility]ERO THERAPY 5 [facility] TQS 1/> INC INC REGIONS EACH 15 MINUTES MANUAL 61559 BAR D[facility]ERO THERAPY 5 [facility] TQS 1/> INC INC REGIONS EACH 15 MINUTES E-STIM G0283 BAR DINERO 1/> AREAS 5 [facility] OTH THAN INC INC WND CARE PART TX PLAN THERAPEUT 37872 BAR DINERO IC PX 1/> 5 [facility] AREAS INC INC EACH 15 MIN EXERCISES PHYSICAL 48568 BAR D[facility]ERO THERAPY 5 [facility] EVALUATIO INC INC N SUSCEPTIB 90370 EQUATORIAL GUINEAN EQUATORIAL GUINEAN LTY STDY 5 ESOTERIC ESOTERIC ANTIMICRB LABORATOR LABORATOR IAL I I MICRO/AGA R DILUTJ CUL BACT 78177 EQUATORIAL GUINEAN EQUATORIAL GUINEAN AEROBIC 5 ESOTERIC ESOTERIC ADDL LABORATOR LABORATOR METHS I I DEFINITIV E EA ISOL CULTURE 89664 EQUATORIAL GUINEAN EQUATORIAL GUINEAN BACTERIAL 5 ESOTERIC ESOTERIC LABORATOR LABORATOR QUANTTATI I I VE COLONY COUNT URINE COLPOSCOP 90869 ASSOCIATE SARAVIA Y CERVIX 5 S FOR III RAJINDER UPPER/ADJ WOMENS ACENT CARE P VAGINA URINE 22892 ASSOCIATE SARAVIA 5 S FOR III RAJINDER TEST WOMENS VISUAL CARE P COLOR CMPRSN METHS SCREENING G0202 [facility]ERO 5 [facility] MAMMOGRAP INC INC HY MARKOS INCL CAD WHEN PERFORMD COMPUTER- 60863 BAR DINERO AIDED 5 [facility] DETECTION INC INC SCREENING MAMMOGRAP HY SUSCEPTIB 18492 EQUATORIAL GUINEAN EQUATORIAL GUINEAN LTY STDY 5 ESOTERIC ESOTERIC ANTIMICRB LABORATOR LABORATOR IAL I I MICRO/AGA R DILUTJ CYTP C/V 27102 [facility] [employer] [facility] [employer] [facility] LYR PREPJ SCR MNL RESCR PHYS IADNA 62258 [facility] VIRUS HIGH-RISK TYPES CUL BACT 28037 EQUATORIAL GUINEAN EQUATORIAL GUINEAN AEROBIC 5 ESOTERIC ESOTERIC ADDL LABORATOR LABORATOR METHS I I DEFINITIV E EA ISOL CULTURE 48188 EQUATORIAL GUINEAN EQUATORIAL GUINEAN BACTERIAL 5 ESOTERIC ESOTERIC LABORATOR LABORATOR QUANTTATI I I VE COLONY COUNT URINE PSYCHOTHE 16809 [facility] LAUREL RAPY 5 .ORG W/PATIENT 30 MINUTES PSYCHOTHE 94851 [facility] RAPY 5 ADULTS ADULTS W/PATIENT 60 MINUTES CONTINUOU E0601 LUIS F LUIS F S 5 HOME HOME POSITIVE MEDICAL MEDICAL AIRWAY EQUIPME EQUIPME PRESSURE DEVICE PSYCHOTHE 27012 [facility] RAPY 5 ADULTS ADULTS W/PATIENT 30 MINUTES FILTER A7038 LUIS F REGALADORELL DISPBL 5 HOME HOME USED MEDICAL MEDICAL W/POS EQUIPME EQUIPME ARWAY PRESSURE DEVICE CONTINUOU E0601 LUIS F LUIS F S 5 HOME HOME POSITIVE MEDICAL MEDICAL AIRWAY EQUIPME EQUIPME PRESSURE DEVICE HUMDIFIR E0562 LUIS F LUIS F HEATED 5 HOME HOME USED MEDICAL MEDICAL W/POS EQUIPME EQUIPME ARWAY PRESSURE DEVICE TUBING A7037 LUIS F KERNS USED WITH 5 HOME HOME POSITIVE MEDICAL MEDICAL AIRWAY EQUIPME EQUIPME PRESSURE DEVICE FILTER A7039 LUIS F KERNS NON 5 HOME HOME DISPBL MEDICAL MEDICAL USED EQUIPME EQUIPME W/POS ARWAY PRESS DEVICE HEADGEAR A7035 LUIS FTYREL KERNS USED 5 HOME HOME W/POSITIV MEDICAL MEDICAL E AIRWAY EQUIPME EQUIPME PRESSURE DEVICE POLYSOM 70397 PAVEZ MAR PAVEZ MAR 6/>YRS 5 SLEEP 4/> ADDL NKECHI ATTND PSYCHOTHE 64402 [facility] RAPY 5 ADULTS ADULTS W/PATIENT 60 MINUTES POLYSOM 64042 BAR DINERO 6/>YRS 5 [facility] SLEEP 4/> INC INC ADDL NKECHI ATTND ECG 14692 CARDIOVAS LISA ROUTINE 5 CULAR MAT ECG CONSULTAN W/LEAST TS O 12 LDS I&R ONLY ECG 40313 BAR DINERO ROUTINE 5 [facility] ECG INC INC W/LEAST 12 LDS TRCG ONLY W/O I&R RADIOLOGI 79708 BAR DINEOR C EXAM 5 [facility] CHEST 2 INC INC VIEWS FRONTAL&L ATERAL LOCM Q9967 LAURA SANCHEZ 300-399 5 W W MG/ML REGIONAL REGIONAL IODINE MEDICAL MEDICAL CONCENTRA TION PER ML INJECTION J2001 LAURA BROOKSWVIE 5 W W LIDOCAINE REGIONAL REGIONAL HCL MEDICAL MEDICAL INTRAVENO US INFUS 10 MG INJECTION J1644 LAURA SANCHEZ HEPARIN 5 W W SODIUM REGIONAL REGIONAL PER 1000 MEDICAL MEDICAL UNITS COLLECTIO 73782 LAURA SANCHEZ N VENOUS 5 W W BLOOD REGIONAL REGIONAL VENIPUNCT MEDICAL MEDICAL URE BLOOD 80149 LAURA SANCHEZ COUNT 5 W W COMPLETE REGIONAL REGIONAL AUTO&AUTO MEDICAL MEDICAL DIFRNTL WBC INTRDUCR/ C1766 LAURA SANCHEZ SHEATH 5 W W GUID REGIONAL REGIONAL INTRACARD MEDICAL MEDICAL EP NOT PEEL-AWAY INJECTION J2250 LAURA SANCHEZ 5 W W MIDAZOLAM REGIONAL REGIONAL HCL PER MEDICAL MEDICAL 1 MG CATHETER C1887 LAURA SANCHEZ GUIDING 5 W W REGIONAL REGIONAL MEDICAL MEDICAL INJECTION J3010 LAURA SANCHEZ FENTANYL 5 W W CITRATE REGIONAL REGIONAL 0.1 MG MEDICAL MEDICAL INFUSION J7030 LAURA SANCHEZ NORMAL 5 W W SALINE REGIONAL REGIONAL SOLUTION MEDICAL MEDICAL 1000 CC BASIC 51497 LAURA BROOKSWBILLY METABOLIC 5 W W PANEL REGIONAL REGIONAL CALCIUM MEDICAL MEDICAL TOTAL CATH PLMT 45656 LAURA SANCHEZ L HRT & 5 W W ARTS REGIONAL REGIONAL W/NJX & MEDICAL MEDICAL ANGIO IMG S&I FLUORESCE 68288 [facility] 5 Y Y NONNFCT [facility] AGT ANTB SCREEN EA ANTIBODY HEPATIC 76128 [facility] FUNCTION 5 Y Y PANEL [facility] COLLECTIO 07045 [facility] N VENOUS 5 Y Y BLOOD [facility] VENIPUNCT URE PROTHROMB 39310 [facility] IN TIME 5 Y Y [facility] ECG 29420 CARDIOVAS LISA ROUTINE 5 CULAR MAT ECG CONSULTAN W/LEAST TS O 12 LDS W/I&R PSYCHOTHE 08412 [facility] RAPY 5 ADULTS ADULTS W/PATIENT 45 MINUTES BIOPSY 25264 [facility] LIVER 5 Y Y NEEDLE [facility] PERCUTAIN OUS SPCL STN 52749 [facility] 2 I&R 5 Y Y EXCPT [facility] MICROORG/ ENZYME/IM CYT LEVEL V 79396 [facility] SURG 5 Y Y PATHOLOGY [facility] GROSS&RENU ROSCOPIC EXAM ABDOM 52007 [facility] PARACENTE 5 Y Y [facility] DX/THER W/IMAGING GUIDANCE THROMBOPL 17875 BAR DINERO ASTIN 5 [facility] TIME INC INC PARTIAL PLASMA/WH OLE BLOOD BLOOD 59948 BAR DINERO COUNT 5 [facility] COMPLETE INC INC AUTO&AUTO DIFRNTL WBC COLLECTIO 98908 BAR DINERO N VENOUS 5 [facility] BLOOD INC INC VENIPUNCT URE PROTHROMB 36610 BAR DINERO IN TIME 5 [facility] INC INC PSYCHOTHE 96754 [facility] RAPY 5 ADULTS ADULTS W/PATIENT 30 [place] [address] [facility] GLUTAMYLT 4 Y Y RASE [facility] GAMMA IMMUNOASS 60953 [facility] AY 4 Y Y ANALYTE [facility] [address] [facility] NEPHELOME 4 Y Y TRY EACH [facility] ANALYTE KAMALA PROTHROMB 69109 [facility] IN TIME 4 Y Y [facility] MICROSOMA 61573 [facility] L 4 Y Y ANTIBODIE [facility] S EACH NFCT AGNT 95695 [facility] GENOTYP 4 Y Y NUCLEIC [facility] ACID HEPATITIS C VIRUS COLLECTIO 62043 [facility] N VENOUS 4 Y Y BLOOD [facility] VENIPUNCT URE IADNA 32582 [facility] HEPATITIS 4 Y Y C QUANT [facility] & REVERSE TRANSCRIP TION BLOOD 94646 [facility] COUNT 4 Y Y COMPLETE [facility] AUTOMATED ANTINUCLE 45520 [facility] AR 4 Y Y ANTIBODIE [facility] S TORRES FLUORESCE 62835 [facility] NT 4 Y Y NONNFCT [facility] AGT ANTB SCREEN EA ANTIBODY APOLIPOPR 47140 [facility] OTEIN 4 Y [place] [address] [facility] HAPTOGLOB 4 Y Y IN HOSPITAL HOSPITAL QUANTITAT KATY PSYCHOTHE 57520 [facility] RAPY 4 .ORG .ORG W/PATIENT 45 MINUTES PSYCHOTHE 40504 [facility] RAPY 4 .ORG .ORG W/PATIENT 45 MINUTES HEPATOBIL 60353 BAR DINERO IARY SYST 4 [facility] IMAGING INC INC INCLUDING GALLBLADD ER UNCLASSIF J3490 BAR DINERO IED DRUGS 4 [facility] INC INC PSYCHOTHE 23255 [facility] RAPY 4 ADULTS ADULTS W/PATIENT 45 MINUTES PSYCHIATR 45357 [facility] IC 4 ADULTS ADULTS DIAGNOSTI C EVAL W/MEDICAL SERVICES IADNA 19477 BAR DINERO HEPATITIS 4 [facility] C QUANT INC INC & [place] [address] [facility] N[facility]ONINEKE ABDOMINAL 4 MEDICAL EDWIN REAL IMAGING TIME ASS W/IMAGE LIMITED ACUTE 69352 LAB [facility] HEPATITIS 4 BLOSSOM BLOSSOM PANEL HOLDINGS HOLDINGS COMPREHEN 69807 COMBINED COMBINED SIVE 4 PHYSICIAN PHYSICIAN METABOLIC S LA S LA PANEL COLLECTIO 25708 [facility] N VENOUS 4 [facility] BLOOD INTERNAL VENIPUNCT MED URE LIPID 12153 COMBINED COMBINED PANEL 4 PHYSICIAN PHYSICIAN S LA S LA BLOOD 12822 COMBINED COMBINED COUNT 4 PHYSICIAN PHYSICIAN COMPLETE S LA S LA AUTO&AUTO DIFRNTL WBC HANDLG&/O 58865 [facility] R CONVEY 4 [facility] [place] OF SPEC INTERNAL FOR TR MED OFFICE TO LAB SPMTRY 81483 [facility] W/VC 4 [facility] EXPIRATOR INTERNAL Y JULIO MED W/WO MXML VOL VNTJ Encounters Encounter Start End Date Code Location Performer Type Date EMERGENCY 62907 JANAK SHEPARD 7 7 PHYSICIAN JR DEPARTMEN S, PLLC T VISIT HIGH/URGE NT SEVERITY OFFICE 85619 [facility] SRIVASTAV OUTPATIEN 7 7 PHYSICIAN A T VISIT S GROUP 25 MINUTES EMERGENCY 38192 JANAK GARCÍA DEPT 7 7 PHYSICIAN VISIT S, PLLC HIGH SEVERITY& THREAT FUNCJ OFFICE 66895 JORDON JIM OUTPATIEN 7 7 NURSE T VISIT PRACTITIO 25 NER GR MINUTES HOSPITAL - 7 7 [facility] OUTPATIEN E T HOSPITALS OFFICE 88581 [facility] LISA OUTPATIEN 7 7 PHYSICIAN T VISIT S GROUP 40 MINUTES HOSPITAL BAR - 7 7 [facility] OUTPATIEN INC T EMERGENCY 16669 JANAK PULIDO DEPT 7 7 PHYSICIAN VISIT S, PLLC HIGH SEVERITY& THREAT FUNCJ OFFICE 11065 S MARAJOLENE OUTPATIEN 7 7 NURSE CK T VISIT PRACTITIO 25 NER GR MINUTES OFFICE 45190 [facility]IEN 7 7 [facility] T VISIT INC 10 MINUTES HOSPITAL BAR - 7 7 [facility] OUTPATIEN INC T OFFICE 54555 LETHA EUGENE OUTPATIEN 7 7 MD OMISE, T VISIT PSC 15 MINUTES OFFICE 75518 [facility] RENAN OUTPATIGUCCI 7 7 PHYSICIAN T VISIT S GROUP 15 MINUTES HOSPITAL BAR - 7 7 [facility] T [facility] BAR - 7 7 [facility] T [facility] BAR - 7 7 [facility] OUTPATIEN INC T EMERGENCY 47891 [facility] 7 7 [facility] DEPARTMEN INC T VISIT HIGH/URGE NT SEVERITY HOSPITAL BAR - 7 7 [facility] OUTPATIEN INC T EMERGENCY 72903 JANAK PULIDO DEPT 7 7 PHYSICIAN VISIT S, PLLC HIGH SEVERITY& THREAT FUNCJ OFFICE 11086 LETHA EUGEEN OUTPATIEN 7 7 MD MOISE, T VISIT PSC 15 MINUTES OFFICE 38738 [facility] FAYEPATIGUCCI 7 7 [facility] T V[facility]IT INC 10 MINUTES HOSPITAL BAR - 7 7 [facility] OUTPATI[facility] T [facility] BAR - 7 7 [facility]PAT[facility] INC T OFFICE 43855 [facility] ASTUDILLO [facility] P MINUTES [facility] - 7 7 [facility] OUTPATIEN INC T OFFICE 20623 [facility] OUTPATIEN 7 7 NURSE T VISIT PRACTITIO 25 NER GR MINUTES OFFICE 32071 [facility] [place] OUTPATIEN [address] [facility] 15 P [facility] - 7 7 [facility] - 7 7 [facility] OUTPATI[facility] E [facility]PITALS OFFICE 96402 OUTPATIEN 7 7 [facility] V[facility] 5 [facility] - 7 7 [facility] OUTPATIEN [facility] T OFFICE 06819 [facility] OUTPATIEN 7 7 [facility] T [facility]ISIT INC 10 [facility] BAR - 7 7 [facility] OUTPATIEN [facility] BAR - 7 7 [facility]EN [facility] T OFF[facility] 47574 [facility] [place] [facility]PATI[facility] [address] [facility] 15 P [facility] BAR - 6 6 [facility]PATIEN [facility] T OFFICE 00193 [facility] OUTPATIEN 6 6 PHYSICIAN EUG T VISIT S GROUP MINUTES OFFICE 86548 [facility] 6 6 Y T [facility]ISIT 5 [facility] - 6 6 Y OUTPATI HOSPITAL T OFF[facility] 15013 [facility] [place] OUTPATI[facility] 6 6 [facility] T VISIT 5 [facility] BAR - 6 6 [facility] OUTPATIEN INC T OFFICE 81830 [facility] OUTPATIEN 6 6 NURSE ANG T VISIT PRACTITIO 25 NER GR MINUTES OFFICE 00058 [place] [facility] 6 6 [facility] 10 [facility] BAR - 6 6 [facility] INPATIENT INC EMERGENCY 67527 [facility] DEPT 6 6 PHYSICIAN SAMMI VISIT S, [facility] HIGH SEVERITY& THREAT [facility] UNIVERSIT - 6 6 Y [facility] UNIVERSIT [facility] 6 6 Y [facility] T OFFICE 72638 [facility] 6 6 PHYS[facility]IAN [facility] 15 [facility] UNIVERSIT - 6 6 Y [facility] UNIVERSIT [facility] 6 6 Y [facility] UNIVERSIT - 6 6 Y [facility] BAR - 6 6 [facility] OUTPATIEN [facility] EMERGENC[facility] 04539 [place] DEPT 6 6 [facility] VISIT INC HIGH SEVERITY& THREAT [facility] UNIVERSIT - 6 6 Y [facility] UNIVERSIT - 6 6 Y [facility] UNIVERSIT - 6 6 Y [facility] UNIVERSIT - 6 6 Y [facility] UNIVERSIT - 6 6 Y [facility] UNIVERSIT [facility] 6 6 Y [facility] UNIVERSIT - 6 6 Y [facility] T OFFICE 78632 [facility] 6 6 [facility] VISIT 5 [facility] - 6 6 [facility] UNIVERS[facility] - 6 6 [facility] - 6 6 [facility] - 6 6 [facility] - 6 6 [facility] UN[facility] - 6 6 Y [facility] UN[facility]ERSIT [facility] 6 6 [facility] 43140 LETHA VALDIVIANELL [facility] 6 6 MD MOISE, T [facility] 30 [facility] OFFICE 10794 BAR OUTPATI [address] UNIVERSIT - 6 6 [facility] 12110 [facility] [address] UNIVERSIT - 6 6 [facility] 6 6 [facility] 6 [facility] 6 6 [facility] BAR - 6 6 [facility] 6 [facility] 6 6 [facility] 41400 [facility] 6 6 [facility] 10 [facility] UNIVERSIT [facility] 6 6 Y [facility] T OFFICE 75526 UNIVERSIT OUTPATIEN 6 6 Y T VISIT [address] [place] [address] [facility]ERSIT [facility] 6 6 [facility] BAR - 6 6 [facility]EN [facility] T OFF[facility] 38144 BAR [facility] 6 6 [facility] MINUTES P HOSPITAL BAR - 6 6 [facility]EN [facility] T HOSPITAL [facility]ERSIT [facility] 6 6 [facility] BAR - 6 6 [facility]PAT[facility]EN [facility] T OFFICE 27628 KMSF TAYI [facility] 6 6 NURSE CK ANIBAL T VISIT PRACTITIO 25 NER GR MINUTES OFFICE 98827 [place] DIOP [facility] 6 6 MEDICAL JAM T VISIT SERV 25 FOUNDATIO MINUTES [facility] UNIVERSIT [facility] 6 6 Y [facility] T OFFICE 41805 UNIVERSIT [facility] 6 6 Y T VISIT 5 HOSPITAL MINUT[facility] OFFICE 17045 [facility] 6 6 PHYSICIAN RENU T VISIT S GROUP 15 [facility] BAR - 6 6 [facility]PAT[facility]EN [facility] T OFF[facility] 75064 [facility] 6 PHYSICIAN ERNU T NEW 20 S GROUP [facility] UK - 6 6 [facility] OUT[facility]IEN [facility] BAR [facility] 6 6 [facility] OUTPATIEN [facility] BAR - 6 6 [facility]PAT[facility]EN [facility] T OFF[facility] 47685 [place] [facility] [facility] 6 6 [place] T VISIT 5 INTERNAL MINUTES MED EMERGENCY 59400 BAR 6 6 [facility] DEPARTMEN INC T VISIT MODERATE SEVERITY EMERGENCY 97168 JANAK SHEPARD, DEPT 6 6 PHYSICIAN JR MADERA VISIT S, [facility] HIGH SEVERITY& THREAT [facility] BAR - 6 6 [facility] OUTPATIEN INC [facility]PITAL BAR - 5 5 [facility] OUTPATIEN INC T OFFICE 00244 [place] SHASHI PHI CONSULTAT 5 5 MEDICAL ION SERV NEW/ESTAB FOUNDATIO PATIENT N 40 MIN OFFICE 85798 [facility] PETTESirisha OUTPATIEN 5 5 PHYSICIAN YANCI URBINA 30 S [facility] BAR - 5 5 [facility] OUTPATIEN INC T OFFICE 38370 [place] MARTINEZ OUT[facility]IEN 5 5 [facility] T VISIT INTERNAL 15 [facility] BAR - 5 5 [facility] OUTPATIEN INC T OFFICE 83667 [place] OUTPATIEN 5 5 [place] T VISIT INTERNAL 25 [facility] BAR - 5 5 [facility] OUTPATIEN INC [facility]PITAL BAR - 5 5 [facility] OUTPATIEN INC T OFFICE 26562 ASSOCIATE MANJIT ASTUDILLO 5 5 S FOR III RAJINDER T VISIT WOMENS 15 CARE P [facility] BAR - 5 5 [facility] OUTPATIEN INC T INITIAL 55010 ASSOCIATE EMMY ALLEN PREVENTIV 5 5 S FOR E [facility] C[facility] NEW PATIENT 40-64YRS OFFICE 94648 [place] USERY AND OUTPATIEN 5 5 VALLEY T VISIT INTERNAL 15 [facility] BAR - 5 5 [facility] OUTPATIEN INC T OFFICE 46787 CARDIOVAS LISA OUTPATIEN 5 5 CULAR MAT T VISIT CONSULTAN 25 TS O [facility] BAR - 5 5 [facility] OUTPATIEN INC HOSPITAL MEADOWVIE - 5 5 W [facility] T [facility] UNIVERSIT - 5 5 Y [facility] T OFFICE 56759 [place] SOURIANAR OUTPATIEN 5 5 MEDICAL AYANANE T VISIT SERV ACH 15 FOUNDATIO MINUTES N OFFICE 32004 CARDIOVAS LISA OUTPATIEN 5 5 CULAR MAT T NEW 60 CONSULTAN MINUTES TS O OFFICE 42976 [facility] 5 5 ADULTS ADULTS T VISIT 15 MINUTES [facility] UNIVERSIT - 5 5 Y [facility] BAR - 5 5 [facility] 4 4 Y [facility] T OFFICE 42484 [facility] 4 4 .ORG .ORG T VISIT 15 MINUTES [facility] BAR - 4 4 [facility] 4 [facility] T OFF[facility] 73023 [place] [facility] 4 4 [facility] T VISIT 5 INTERNAL MINUTES MED OFFICE 76210 [place] [facility] OUT[facility] 4 4 [facility] T NEW 45 INTERNAL MINUTES MED EMERGENCY 91352 [facility] MARY ANNE 4 4 [facility] EMERGENCY T VISIT PHYS MODERATE SEVERITY
--- OUTSIDE RECORDS SUMMARY | 2017-02-09 17:20 | External Medical Summary Rpt | CCD ---
Author Author , GAUDENCIO Organization GAUDENCIO Address Unknown Phone [email or web address] Providers Care Complaint Analyst Name Role Phone ABSNER KARAN, ABSNER Unavailable Unavailable [facility] Unavailable Unavailable [facility], [facility] Unavailable Unavailable [facility], [facility] LETHA PHIPPS MD, PSC, Unavailable [...] Unavailable [facility] Un[facility] Unavailable INC, [facility] Unavailable Unavailable HOSPITAL P, [facility] JIM FERNANDEZ Unavailable Unavailable JIM ANG, FERNANDEZ Unavailable Unavailable ANG [facility], Unavailable Unavailable [facility] ISABEL ZEV, ISABEL ZEV Unavailable Unavailable LE MARY ANNE, LE MARY ANNE Unavailable Unavailable JUETT TIFFANY, JUETT TIFFANY Unavailable [facility]available [facility] Un[place] Unavailable PRACTITIONER GR, [facility] NURSE PRACTITIONER [facility], Unavailable Unavailable [facility] Unavailable Unavailable [facility], [facility] Unavailable Unavailable [facility], [facility] Unavailable Unavailable [facility], [facility] MASKEY ABDI, MASKEY Unavailable Unavailable ABDI DIOP JAM, Unavailable Unavailable DIOP JAM [facility] Unavailable Unavailable MEDICAL, [facility] MEDICAL [facility] Unavailable Unavailable AMBULANCE SE, [facility] Unavailable Un[facility], Unavailable Unavailable PLLC, [facility], [facility] PAVEZ MAR, PAVEZ MAR Unavailable Unavailable P[facility] [...] Unavailable Unavailable [facility], [facility] IGANNI, Unavailable Unavailable GIANNI SHASHI PHI, SHASHI PHI Unavailable Unavailable [facility] Unavailable Unavailable HOSPITALS, [facility], Unavailable Unavailable [facility], [facility] Unavailable Unavailable Purpose Continuity of Care Document - 09-01-2013 through 2016 Problems Code Diagnosis DOS Provider Status [id number] LUMBAGO 01-02-2017 [facility] LEFT SIDE C3490 MALIGNANT 12-28-2016 [facility] NEOPLASM PHYSICIANS UNS PART GROUP UNS BRONCHUS/BRUCE NG I119 HYPERTENSIV 12-28-2016 [facility] E HEART PHYSICIANS DISEASE GROUP WITHOUT HEART FAILURE I2510 ASHD CHITINA 12-28-2016 [facility] CORONARY PHYSICIANS ARTERY W/O GROUP ANGINA PECTORIS J449 CHRONIC 12-28-2016 [facility] OBSTRUCTIVE PHYSICIANS PULMONARY GROUP DISEASE UNS R0789 OTHER CHEST 12-28-2016 [facility] PAIN PHYSICIANS GROUP R9431 ABNORMAL 12-28-2016 [facility] ELECTROCARD PHYSICIANS IOGRAM GROUP R0600 DYSPNEA 12-26-2016 [place] [facility] R079 CHEST PAIN 12-26-2016 [place] [facility] R918 OTHER 12-26-2016 [place] NONSPECIFIC MEDICAL ABNORMAL IMAGING ASS FINDING OF LUNG FIELD Z9114 PATIENTS 12-26-2016 [facility], NONCOMPLIAN PLLC CE W/MEDICATIO N REGIMEN B182 CHRONIC 12-07-2016 [facility] B1920 UNS VIRAL 12-01-2016 [facility] SERV WITHOUT FOUNDATION HEPATIC COMA I10 ESSENTIAL 11-02-2016 [facility] HYPERTENSIO INC N I208 OTHER FORMS 11-02-2016 [facility] OF ANGINA PHYSICIANS PECTORIS GROUP J439 EMPHYSEMA 11-02-2016 [place] [facility] J90 PLEURAL 11-02-2016 [place] EFFUSION MEDICAL NOT IMAGING ASS ELSEWHERE CLASSIFIED R0602 SHORTNESS 11-02-2016 [facility] OF BREATH PHYSICIANS GROUP R222 LOCALIZED 11-02-2016 [facility] MASS AND INC LUMP TRUNK M461 SACROILIITI 10-10-2016 [facility] NOT [facility] ELSEWHERE INC CLASSIFIED M5136 OT 10-10-2016 ALISSA OSEGUERA MD, PSC RAL DISC DEGEN LUMBAR REGION M791 MYALGIA 10-10-2016 [facility] INC C3432 MALIGNANT 10-05-2016 [facility] NEOPLASM PHYSICIANS LOWER LOBE GROUP LT BRONCHUS/BRUCE NG I214 NON-ST 10-05-2016 [facility] ELEVATION PHYSICIANS MYOCARDIAL GROUP INFARCTION E785 HYPERLIPIDE 09-21-2016 [facility] UNSPECIFIED INC I229 SUBSEQUENT 09-15-2016 [facility] ST ELEV PHYSICIANS MYOCARDIAL GROUP INFARCT UNS SITE M54581 ASHD CHITINA 09-15-2016 [facility] COR ART PHYSICIANS W/OTH FORMS GROUP ANGINA PECTORIS I209 ANGINA 09-14-2016 [facility] UNSPECIFIED INC I249 ACUTE 09-10-2016 [facility]SCHEMIC [facility] HEART INC DISEASE UNSPECIFIED Z720 TOBACCO USE 09-10-2016 [facility] INC C3492 MALIGNANT 08-11-2016 [facility]M [facility] UNS PART INC LEFT BRONCHUS/BRUCE NG I313 PERICARDIAL 08-11-2016 [place] EFFUSION MEDICAL NONINFLAMMA IMAGING ASS TORY R932 ABNORMAL 06-01-2016 [facility] NURSE FIND ON DX PRACTITIONE IMAGING R GR LIVER & BILI TRACT K829 DISEASE OF 05-24-2016 [facility]ALL[facility] UNSPECIFIED N289 DISORDER OF 05-24-2016 [facility] UNSPECIFIED Z08 ENCOUNTER 05-10-2016 F/U EX[facility] NEOPLASM E16799 PERSONAL HX 05-10-2016 [facility] NEOPLASM HOSPITALS BRONCHUS & LUNG R530 NEOPLASTIC 04-26-2016 [facility] RELATED INC FATIGUE R911 SOLITARY 04-26-2016 [place] PULMONARY MEDICAL NODULE IMAGING ASS J40 BRONCHITIS 03-02-2016 [place] NOT MEDICAL SPECIFIED IMAGING ASS ACUTE OR CHRONIC E860 DEHYDRATION 12-31-2015 [facility] ALCALA, [facility] J701 CHRONIC & 12-31-2015 [facility] P MANIF DUE TO RADIATION K208 OTHER 12-31-2015 [facility] K209 ESOPHAGITIS 12-31-2015 [facility] ALCALA, UNSPECIFIED PLLC Z510 ENCOUNTER 12-30-2015 [facility] ANTINEOPLAS TIC RADIATION THERAPY J189 PNEUMONIA 12-22-2015 [facility] UNSPECIFIED HOME ORGANISM MEDICAL EQUIPME D0222 CARCINOMA 12-21-2015 [facility] IN SITU OF PHYSICIANS LEFT GROUP BRONCHUS AND LUNG I252 OLD 12-21-2015 [facility] MYOCARDIAL PHYSICIANS INFARCTION GROUP I340 NONRHEUMATI 12-21-2015 [facility] MITRAL SERV VALVE FOUNDATION INSUFFICIEN CY I361 NONRHEUMATI 12-21-2015 [facility] TRICUSPID SERV VALVE FOUNDATION INSUFFICIEN CY I371 NONRHEUMATI 12-21-2015 [facility] PULMONARY SERV VALVE FOUNDATION INSUFFICIEN CY R748 ABNORMAL 12-21-2015 [facility] LEVELS OF PHYSICIANS OTHER SERUM GROUP ENZYMES R05 COUGH 12-20-2015 [facility] G893 NEOPLASM 11-30-2015 LETHA PHIPPS, RELATED , PSC PAIN ACUTE CHRONIC M5116 INTERVERTEB 11-30-2015 [facility] DISC [facility] D/O INC W/RADICULOP ATHY LUMB RGN J42 UNSPECIFIED 10-21-2015 [facility] CHRONIC [facility] BRONCHITIS INC Z129 ENCOUNTER 10-19-2015 [place] SCREENING MEDICAL MALIGNANT IMAGING ASS NEOPLASM SITE UNS N261 ATROPHY OF 10-15-2015 [facility] TERMINAL L66127 PERSONAL 10-04-2015 [facility] NURSE HISTORY OF PRACTITIONE NICOTINE R GR DEPENDENCE J60 COALWORKERS 09-24-2015 [facility] PNEUMOCONIO FOUNDATION SIS J9809 OTHER 09-24-2015 [facility] DISEASES OF SERVICES BRONCHUS NEC R599 ENLARGED 09-24-2015 [facility] LYMPH NODES SERV [facility]OUNDATION UNSPECIFIED Z0000 ENCOUNTER 09-08-2015 [facility] MED EXAM W/O ABNORMAL FIND M549 DORSALGIA 08-24-2015 [facility] UNSPECIFIED PHYSICIANS GROUP R938 ABNORMAL 08-24-2015 [facility] FIND ON DX PHYSICIANS IMAGING OTH GROUP SPEC BODY STRCT M1990 UNSPECIFIED 08-03-2015 [facility] PHYSICIANS OSTEOARTHRI GROUP TIS UNSPECIFIED SITE A09541 PAIN IN 08-03-2015 [facility] UNSPECIFIED PHYSICIANS HIP GROUP U23187 PAIN IN 06-15-2015 [facility]IP [facility] INC M533 SACROCOCCYG 06-15-2015 [facility] DISORDERS INC NEC C40493 PAIN IN 04-05-2015 [place] RIGHT KNEE MEDICAL IMAGING ASS M6751 PLICA 04-05-2015 [facility]DROME [facility] RIGHT KNEE INC A39435 SPONDYLOSIS 04-01-2015 [facility] W/O SERV MYELOPATH/R FOUNDATION ADICULOPATH Y LUMB RGN M545 LOW BACK 04-01-2015 [facility] PAIN [facility] M7052 OTHER 03-18-2015 [facility] BURSITIS OF PHYSICIANS KNEE LEFT GROUP KNEE I200 UNSTABLE 03-16-2015 [facility] O M1612 UNILATERAL 02-17-2015 [place] PRIMARY [facility]ICAL OSTEOARTHRI IMAGING ASS TIS LEFT HIP M1711 UNILATERAL 02-17-2015 [place] PRIMARY [facility] OSTEOARTHRI IMAGING ASS TIS RIGHT KNEE B86743 EFFUSION 02-17-2015 [place] RIGHT KNEE MEDICAL IMAGING ASS R350 FREQUENCY [...] [facility] 5990 URINARY 11-10-2014 [facility] SITE NOT SPECIFIED 72548 CERV HIGH 11-10-2014 [facility] PAPILLOMAVI CARE P RADHA DNA TEST POS V7241 11-10-2014 [facility] EXAMINATION [facility]OMENS OR TEST CARE P NEGATIVE RESULT V7612 OTHER 10-15-2014 [place] SCREENING MEDICAL MAMMOGRAM IMAGING ASS V7231 ROUTINE 10-07-2014 [facility] AL EXAMINATION 81075 GENERALIZED 09-25-2014 [facility] ANXIETY RG DISORDER 97748 OBSTRUCTIVE 08-21-2014 [facility] F SLEEP HOME APNEA MEDICAL EQUIPME 62078 CORONARY 07-24-2014 [facility] OSIS CHITINA INTERNAL CORONARY MED ARTERY 496 CHRONIC 07-24-[address] [place] [facility] OBSTRUCTION INTERNAL NEC MED 64645 INSOMNIA 07-24-2014 [place] UNSPECIFIED VALLEY INTERNAL MED 33426 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 2724 OTHER AND 06-16-2014 [facility] UNSPECIFIED LAR CONSULTANTS HYPERLIPIDE O PAUL 4139 OTHER AND 06-16-2014 [facility] UNSPECIFIED LAR [place] [address] COR 06-16-2014 [facility] ATHEROSLERO LAR UNSPEC CONSULTANTS TYPE VESSEL O CHITINA/BUCK T 7862 COUGH 06-16-2014 [place] [facility] 4111 INTERMEDIAT 06-11-2014 [facility] E CORONARY LAR SYNDROME CONSULTANTS O 412 OLD 06-11-2014 [facility] MYOCARDIAL REGIONAL INFARCTION MEDICAL 18004 CHRONIC 06-10-2014 [facility] WITHOUT MENTION HEPATIC COMA 94100 UNSPEC HTN 06-08-2014 [facility] HEART LAR DISEASE CONSULTANTS WITHOUT O HEART FAIL 47532 ACUT 06-08-2014 [facility] MYOCARD LAR INFARCT UNS CONSULTANTS SITE EPIS O CARE UNS 81882 UNSPECIFIED 05-20-2014 [facility] HEPATITIS C W/O HEPATIC COMA 2883 EOSINOPHILI 05-20-2014 [facility] 7906 OTHER 05-20-2014 [facility] BLOOD CHEMISTRY 35711 ABDOMINAL 02-26-2014 [facility] PAIN, [facility] UNSPECIFIED INC SITE 7948 NONSPECIFIC 02-26-2014 [facility] ABNORMAL [facility] RESULTS INC LIVR FUNCTION STUDY 26311 NAUSEA 01-29-2014 [place] ALONE [facility] 7905 OTHER 01-29-2014 [place] NONSPECIFIC MEDICAL ABNORMAL IMAGING ASS SERUM ENZYME LEVELS 5739 UNSPECIFIED 01-22-2014 [facility] DISORDER [facility] 66459 PAIN IN 01-20-2014 [facility] [place] PELVIC [...] 23 -0 -2 .0 00 IN ti CA 70 2- 7- 00 00 IC ve [...] 20 MA CY MG TA BL ET CA 00 09 10 39 12 00 CL [...] 23 -2 -2 .0 00 IN ti CA 70 6- 1- 00 00 IC ve [...] 23 -2 -2 .0 00 IN ti CA 70 5- 3- 00 00 IC ve [...] 59 -3 -2 .0 00 IN ti CA 10 1- 8- 00 00 IC ve [...] 64 -1 -1 .0 00 L- ti CA 50 6- 7- 00 07 MA ve [...] CY 20 MG CA PS UL E CA 00 12 01 24 24 00 CL [...] 64 -2 -2 .0 00 L- ti CA 50 6- 0- 00 07 MA ve OL 19 20 20 45 RT OL 05 16 17 15 9 92 PH TA AR RT MA RA CY TE #5 50 91 MG TA B Procedures Procedure DOS Code Location Performer Comment RADIOLOGI 25284 [place] NATHANAEL Arceo EXAM 7 MEDICAL CHEST 2 IMAGING VIEWS ASS FRONTAL&L ATERAL ECG 80942 JA[facility] GARCÍA ROUTINE 7 PHYSICIAN ECG S, PLLC W/LEAST 12 LDS I&R ONLY LIVER 16796 BILL [facility] ELASTOGRA 7 MEDICAL PHY W/O SERV IMAG FOUNDATIO W/[place] [address] [facility]ILL [place] ABDOMINAL 7 MEDICAL REAL SERV TIME FOUNDATIO W/IMAGE N DOCUMENTA TION DUP-SCAN 39574 BILL [place] ARTL JULIO 7 MEDICAL ABDL/PEL/ SERV SCROT&/RP FOUNDATIO R ORGN N COM ECG 34657 [facility] ROUTINE 7 PHYSICIAN ECG S GROUP W/LEAST 12 LDS I&R ONLY ECG 81956 [facility] ROUTINE 7 [facility] ECG INC INC W/LEAST 12 LDS TRCG ONLY W/O I&R CREATININ 57890 [facility] E BLOOD 7 [facility] INC INC UNCLASSIF J3490 [facility] IED DRUGS 7 [place] [address] [facility] UREA 7 [facility] NITROGEN INC INC QUANTITAT KATY CT THORAX 13257 [place] NATHANAEL W/O & 7 MEDICAL W/CONTRAS IMAGING T ASS MATERIAL RADIOLOGI 37443 [place] ERROLINEKE C 7 MEDICAL EXAMINATI IMAGING ON CHEST ASS [place]ING[place] FRONTAL ECG 62893 [facility] ASHOK ROUTINE 7 PHYSICIAN ECG S, PLLC W/LEAST 12 LDS I&R ONLY AMB A0427 ELISSA BOWERS SERVICE [address] [place] [address] ALS AMBULANCE AMBULANCE EMERGENCY SE SE TRANSPORT LEVEL 1 GROUND A0425 ELISSA BOWERS MILEAGE [address] [place] [address] PER AMBULANCE AMBULANCE STATUTE SE SE MILE ECG 34545 [facility] ROUTINE 7 [facility] ECG INC INC W/LEAST 12 LDS TRCG ONLY W/O I&R UNCLASSIF J3490 [facility] IED DRUGS 7 [facility] [place] [place] [address] LETHA DUFF JOINT 7 MD MOISE, ARTHRGRPH PSC Y&/ANES/S TEROID W/NERY CATH PLMT 01523 [facility] LISA L HRT & 7 PHYSICIAN ARTS S GROUP W/NJX & ANGIO IMG S&I ECG 76409 [facility] ROUTINE 7 [facility] ECG INC INC W/LEAST 12 LDS TRCG ONLY W/O I&R ECG 75467 [facility] ROUTINE 7 [facility] ECG INC INC W/LEAST 12 LDS TRCG ONLY W/O I&R CREATINE 63285 [facility] KINASE 7 [facility] [place] [address] [facility] TROPONIN 7 [facility] QUANTITAT INC INC KATY BLOOD 90387 [facility] COUNT 7 [facility] COMPLETE INC INC AUTO&AUTO DIFRNTL WBC LIPID 46062 [facility] PANEL 7 [facility] INC INC UNCLASSIF J3490 [facility] IED DRUGS 7 [facility] INC INC RADIOLOGI 46810 [facility] C EXAM 7 [facility] CHEST 2 INC INC VIEWS FRONTAL&L ATERAL CREATINE 96852 [facility] KINASE MB 7 [facility] FRACTION INC INC ONLY COMPREHEN 75016 [facility] SIVE 7 [facility] METABOLIC INC INC PANEL OBSERVATI 73211 [facility] ASHOK ON/INPATI 7 PHYSICIAN ENT S GROUP HOSPITAL CARE 50 MINUTES HOSPITAL G0378 [facility] OBSERVATI 7 [facility] ON INC INC SERVICE PER HOUR GROUND A0425 ELISSA BOWERS [address] PER AMBULANCE AMBULANCE STATUTE SE SE MILE AMB A0427 ELISSA BOWERS SERVICE [address] [place] [address] ALS AMBULANCE AMBULANCE EMERGENCY SE SE TRANSPORT LEVEL 1 RADIOLOGI 87101 [facility] LR C EXAM 7 MEDICAL CHEST 2 IMAGING VIEWS ASS FRONTAL&L ATERAL ECG 78885 [facility] ROUTINE 7 [facility] W/LEAST P 12 LDS I&R ONLY BLOOD 89220 [facility] COUNT 7 [facility] COMPLETE INC INC AUTO&AUTO DIFRNTL WBC CT THORAX 65469 [facility] W/O 7 [facility] CONTRAST INC INC MATERIAL COMPREHEN 51606 [facility] SIVE 7 [facility] METABOLIC INC INC PANEL COLLECTIO 15429 [facility] N VENOUS 7 [facility] BLOOD INC INC VENIPUNCT URE COLLECTIO 65100 [facility] N VENOUS 7 [facility] BLOOD INC INC VENIPUNCT URE PROTHROMB 91316 [facility] IN TIME 7 [facility] INC INC COMPREHEN 08064 [facility] SIVE 7 [facility] METABOLIC INC INC PANEL BLOOD 33488 [facility] COUNT 7 [facility] COMPLETE INC INC AUTO&[place] [address] [facility] ABDOMINAL 7 [facility] REAL E E TIME [facility] W/IMAGE DOCUMENTA TION DUP-SCAN 89727 [facility] ARTL JULIO 7 HEALTHCAR HEALTHCAR ABDL/PEL/ E E SCROT&/RP [facility] R ORGN COM UNCLASSIF J3490 [facility] IED DRUGS 7 [facility] INC INC CT THORAX 55940 [facility] 7 [facility] W/[place] [address] [facility] ABDOMEN & 7 [facility] PELVIS INC INC W/CONTRAS T MATERIAL COMPREHEN 01013 [facility] SIVE 7 [facility] METABOLIC INC INC PANEL COLLECTIO 78431 [facility] N VENOUS 7 [facility] BLOOD INC INC VENIPUNCT URE BLOOD 93953 [facility] COUNT 7 [facility] COMPLETE INC INC AUTO&AUTO DIFRNTL WBC THERAPEUT 60246 [facility] IC 6 PHYSICIAN PHYSICIAN PROPHYLAC S GROUP S GROUP TIC/DX INJECTION SUBQ/IM INJECTION J0696 [facility] FRYMAN 6 PHYSICIAN EUG CEFTRIAXO S GROUP NE SODIUM PER 250 MG RADIOLOGI 04468 CURTIS HUFFMAN ALL C EXAM 6 MEDICAL CHEST 2 IMAGING VIEWS ASS FRONTAL&L ATERAL COMPREHEN 44095 [facility] SIVE 6 [facility] METABOLIC INC INC PANEL COLLECTIO 95767 [facility] N VENOUS 6 [facility] [place] [address] CURTIS HUFFMAN ALL ABDOMEN & 6 MEDICAL PELVIS IMAGING W/O ASS CONTRAST MATERIAL CT THORAX 42741 [facility] ALL W/O 6 MEDICAL CONTRAST IMAGING MATERIAL ASS BLOOD 94779 [facility] COUNT 6 [facility] COMPLETE INC INC AUTO&AUTO DIFRNTL WBC SBSQ [address] 15 MINUTES RADIOLOGI 46153 CURTIS HUFFMAN ALL C 6 MEDICAL EXAMINATI IMAGING ON CHEST ASS SINGLE VIEW FRONTAL ECG 25363 [facility] ROUTINE [address] [place] [address] W/LEAST P 12 LDS I&R ONLY INITIAL [address] 30 [id number] [place] [address] DELIVERY 1 MEV => COMPLEX RADIATION [id number] [place] [address] DELIVERY 1 MEV => COMPLEX RADIATION [address] DELIVERY 1 MEV => COMPLEX RADIATION [address] DELIVERY 1 MEV => COMPLEX RADIATION [id number] [place] [address] DELIVERY 1 MEV => COMPLEX THERAPEUT [address] PORT IMAGES(S) OBSERVATI 26257 [facility] FRYMAN ON CARE 6 PHYSICIAN EUG DISCHARGE S GROUP MANAGEMEN T SBSQ 18734 [facility] 6 PHYSICIAN MAT CARE/DAY S GROUP 15 MINUTES ADMN SET A7003 [facility] F LUIS F SM VOL 6 HOME HOME NONFILTR MEDICAL MEDICAL PNEUMAT EQUIPME EQUIPME NEBULIZR DISPBL NEBULIZER E0570 LUIS F KERNS WITH 6 HOME HOME COMPRESSO MEDICAL MEDICAL R EQUIPME EQUIPME UNCLASSIF J3490 [facility] IED DRUGS 6 [facility] INC INC INITIAL 82869 [facility] 6 PHYSICIAN MAT CARE/DAY S GROUP 70 MINUTES SBSQ 50761 [facility] OBSERVATI 6 [facility] CARE/DAY 15 MINUTES UNCLASSIF J3490 [facility] IED DRUGS 6 [facility] INC INC ECHO 51149 [facility] TTHRC R-T 6 [facility] 2D INC INC W/WOM-MOD E COMPL SPEC&COLR D HOSPITAL G0378 [facility] OBSERVATI 6 [facility] ON INC INC SERVICE PER HOUR INITIAL 25533 [facility] OBSERVATI 6 [facility] CARE/DAY 30 MINUTES HOSPITAL G0378 [facility] OBSERVATI 6 [facility] ON INC INC SERVICE PER HOUR ECG 69838 [facility]ANGEL ROUTINE 6 [facility] W/LEAST P 12 LDS I&R ONLY URNLS DIP 52672 [facility] 6 [facility] STICK/TAB INC INC [place] [address] [facility] TROPONIN 6 [facility] QUANTITAT INC INC KATY SMR PRIM 99848 [facility] SRC 6 [facility] GRAM/GIEM INC INC SA STAIN BCT FUNGI/SUSI L BLOOD 73239 [facility] COUNT 6 [facility] COMPLETE INC INC AUTO&[place] [address] [facility] LIPASE 6 [facility] INC INC CREATINE 44234 [facility] KINASE 6 [facility] TOTAL INC INC UNCLASSIF J3490 [facility] IED DRUGS 6 [facility] INC INC CUL BACT 81035 [facility] AEROBIC 6 [facility] ADDL INC INC METHS DEFINITIV E EA ISOL CT THORAX 15529 [facility] LR W/O & 6 MEDICAL SATHISH W/[place] [address] [facility] ANGIOGRAP 6 [facility] HY CHEST INC INC W/CONTRAS T/NONCONT RAST COLLECTIO 43129 [facility] N VENOUS 6 [facility] BLOOD INC INC VENIPUNCT URE COMPREHEN 70602 [facility] SIVE 6 [facility] [place] [address] [facility] LACTATE 6 [facility] INC INC CULTURE 89757 [facility] BACTERIAL 6 [facility] BLOOD INC INC AEROBIC W/ID ISOLATES SUSCEPTIB 95909 [facility] LTY STDY 6 [facility]OSP ANTIMICRB INC INC IAL MICRO/AGA R DILUTJ RADIOLOGI 12275 [facility] DIENRO C EXAM 6 [facility] CHEST 2 INC INC VIEWS FRONTAL&[place] [address] [facility] AMYLASE 6 [facility] INC INC CREATINE 87294 [facility] KINASE MB 6 [facility] [place] [address] [facility] INFUSION 6 [facility] THER INC INC PROPH ADDL SEQUENTIA L TO 1 HR ECG 56267 [facility] ROUTINE 6 [facility] HOSP ECG INC INC W/LEAST 12 LDS TRCG ONLY W/O I&R RADIATION [id number] [place] [address] DELIVERY 1 MEV => COMPLEX RADIATION [id number] [place] [address] DELIVERY 1 MEV => COMPLEX RADIATION [address] [place] [address] DELIVERY 1 MEV => COMPLEX RADIATION [address] [place] [address] DELIVERY 1 MEV => COMPLEX CONTINUIN [id number] CONSLT[place] WK RADIATION [address] [place] [address] DELIVERY 1 MEV => COMPLEX RADIATION [address] [place] [address] Y Y [facility] DELIVERY 1 MEV => COMPLEX RADIATION [address] DELIVERY 1 MEV => COMPLEX COMPREHEN 68845 [facility] SIVE 6 [facility] METABOLIC INC INC PANEL UNCLASSIF J3490 [facility] IED DRUGS 6 [facility] INC INC CHEMOTX 64368 [facility] ADMN IV 6 [facility] NFS TQ EA INC INC SEQL NFS TO 1 HR BLOOD 13864 [facility] COUNT 6 [facility] COMPLETE INC INC AUTO&AUTO DIFRNTL WBC CHEMOTHER 79611 [facility] APY ADMN 6 [facility] IV INC INC INFUSION TQ EA HR CHEMOTX 24702 [facility] ADMN IV 6 [facility] NFS TQ UP INC INC 1 HR SBST/DRUG RADIATION [address]31 [place] [address] Y [facility] DELIVERY 1 MEV => COMPLEX RADIATION [address] DELIVERY 1 MEV => COMPLEX CONTINUIN 60894 [facility] 6 Y Y [facility] CONSLTJ CA WK RADIATION [address] DELIVERY 1 MEV => COMPLEX THER RAD 68490 [facility] 6 Y Y [facility] FIELD SETTING SIMPLE RADIATION [address] DELIVERY 1 MEV => COMPLEX THERAPEUT [address] [place] [address] [facility] PORT IMAGES(S) RADIATION [address] DELIVERY 1 MEV => COMPLEX RADIATION [address] DELIVERY 1 MEV => COMPLEX RADIATION [address] DELIVERY 1 MEV => COMPLEX RADIATION [address] [place] [address] Y Y [facility] DELIVERY 1 MEV => COMPLEX THERAPEUT [address] [place] [address] [facility] PORT IMAGES(S) RADIATION [address] [place] [address] Y Y [facility] DELIVERY 1 MEV => COMPLEX RADIATION [address]66 [place] [address] Y Y [facility] DELIVERY 1 MEV => COMPLEX TELETHX 42932 [facility] ISODOSE 6 Y Y [facility] [place] [address] [place] [address] Y Y [facility] CONSTRUCT ION COMPLEX RADIATION [address] Y [facility] DELIVERY 1 MEV => COMPLEX THERAPEUT [address] [place] [address] [facility] PORT IMAGES(S) RADIATION [address] [place] [address] Y Y [facility] DELIVERY 1 MEV => COMPLEX RADIATION [address]497 [place] [address] Y Y [facility] DELIVERY 1 MEV => COMPLEX UNCLASSIF J3490 [facility] IED DRUGS 6 [facility] INC INC BLOOD 86889 [facility] COUNT 6 [facility] COMPLETE INC INC AUTO&AUTO DIFRNTL WBC CHEMOTHER 43722 [facility] APY ADMN 6 [facility] IV INC INC INFUSION TQ EA HR CHEMOTX 24418 BAR [facility] ADMN IV 6 [facility] NFS TQ EA INC INC SEQL NFS TO 1 HR BASIC 43656 [facility] METABOLIC 6 [facility] PANEL INC INC CALCIUM TOTAL CHEMOTX 28237 BARCODY DINERO ADMN IV 6 [facility] NFS TQ UP INC INC 1 HR SBST/DRUG RADIATION 57429 [place] [address] Y Y [facility] DELIVERY 1 MEV => COMPLEX 3-D 87996 [facility] [place] [address] UN[facility] UNIVERSIT DEVICES 6 Y Y [facility] HOSPITAL [place] [address] [facility] SIMULAJ-A 6 Y [facility] FIELD SETTING COMPLEX SPMTRY 11213 BILL DIOP W/VC 6 MEDICAL JAM EXPIRATOR SERV Y JULIO FOUNDATIO W/WO MXML N VOL VNTJ BRNCDILAT 17809 [facility] RSPSE 6 [facility] SPMTRY INC INC PRE&POST- BRNCDILAT ADMN GAS 81552 BAR D[facility]ERO DILUT/WAS 6 [facility] HOUT LUNG INC INC VOL W/[place] DISTRIB VENT&[place] [address] BAR DIN[facility] DIFFUSING 6 [facility] CAPACITY INC INC PLETHYSMO 31608 BILL DIOP GRAPHY 6 MEDICAL JAM LUNG SERV VOLUMES FOUNDATIO W/WO N AIRWAY RESIST UNCLASSIF J3490 BAR DINERO IED DRUGS 6 [facility] INC INC MRI BRAIN 56803 [facility] BRAIN 6 [facility] STEM W/O INC INC W/CONTRAS T MATERIAL PET 27259 [facility] IMAGING [address] [facility] ATTENUATI ON SKULL BASE MID-THIGH FLUORODEO A9552 [facility] XYGLUCOSE 6 Y Y F-18 FDG [facility] DX UP [place] [address] [place] [address] BAR DINERO UREA 6 [facility] NITROGEN INC INC QUANTITAT KATY COLLECTIO 31590 BAR Smith VENOUS 6 [facility] BLOOD INC INC VENIPUNCT URE CREATININ 11123 BAR D[facility] E BLOOD 6 [facility] INC INC CYTP FINE 83880 [place] LEON NDL 6 MEDICAL KARAN ASPIRATE SERV IMMT FOUNDATIO CYTOHIST N STD EA EVAL BRONCHOSC 09363 [place] MASKEY OPY 6 MEDICAL ABDI W/TRANSBR SERV ONCL NDL FOUNDATIO ASPIR BX N EA LOBE IMHISTOCH 53581 [place] LEON EM/CYTCHM 6 MEDICAL KARAN EA ADDL SERV ANTIBODY FOUNDATIO SLIDE N CYTP FINE 05592 BILL QUINTERO NDL 6 MEDICAL KARAN ASPIRATE SERV IMMT FOUNDATIO CYTOHIST N STD DX 1ST CYTP EVAL 06780 BILL QUINTERO FINE 6 MEDICAL KARAN NEEDLE SERV ASPIRATE FOUNDATIO INTER[place] & [place] [address] BILL QUINTERO SURG 6 MEDICAL KARAN PATHOLOGY SERV FOUNDATIO GROSS&RENU N ROSCOPIC EXAM IMHISTOCH 66835 BILL QUINTERO EM/CYTCHM 6 MEDICAL KARAN 1ST SERV ANTIBODY FOUNDATIO STAIN N PROCEDURE BRNCHSC 44013 BILL MASKFLASH EBUS 6 MEDICAL ABDI GUIDED SERV SAMPL 3/> FOUNDATIO NODE N STATION/S TRUX ANESTHESI 32626 BILL AGGARWALJAY JAY A CLOSED 6 MEDICAL BIENVENIDO CHEST SERVICES W/BRONCHO SCOPY NOS BRONCHOSC 23786 BILL MASKEY OPY 6 MEDICAL ABDI BRONCHIAL SERV /ENDOBRNC FOUNDATIO L BX 1+ N SITES BRONCHOSC 42953 BILL MASKEY OPY 6 MEDICAL ABDI NEEDLE BX SERV TRACHEA FOUNDATIO MAIN N STEM&/BRO N ECG 94286 [facility] ROUTINE 6 Y Y ECG [facility] W/LEAST 12 LDS TRCG ONLY W/O I&R ECG 35042 BILL LAGUNAO ROUTINE 6 MEDICAL ECG SERV W/LEAST FOUNDATIO 12 LDS N I&R ONLY SPMTRY 90866 BILL DIOP W/VC 6 MEDICAL JAM EXPIRATOR SERV Y JULIO FOUNDATIO W/[place] [address] BILL DIOP DIFFUSING 6 MEDICAL JAM CAPACITY SERV FOUNDATIO N PULMONARY 12907 [place] DIOP STRESS 6 MEDICAL JAM TESTING SERV SIMPLE FOUNDATIO N CT THORAX 39086 [place] BEINEKE 6 MEDICAL EDWIN W/CONTRAS IMAGING T ASS MATERIAL CREATININ 32416 BAR Ballard BLOOD 6 [place] [address] BAR DINERO UREA 6 [facility] NITROGEN INC INC QUANTITAT KATY COLLECTIO 20914 BAR Smith VENOUS 6 [facility] BLOOD INC INC VENIPUNCT URE LIVER 21869 BILL CARDENAS ELASTOGRA 6 MEDICAL KUSH PHY W/O SERV IMAG FOUNDATIO W/I&R N COMPREHEN 43356 [place] SIVE 6 [facility] METABOLIC E E PANEL [facility] COLLECTIO 78648 [place] N VENOUS 6 [facility] BLOOD E E VENIPUNCT [facility] URE PROTHROMB 92005 [place] [facility] IN TIME 6 [facility] HEALTHCAR E E [facility] IADNA 38089 [place] HEPATITIS 6 [facility] C QUANT E E & REVERSE [facility] TRANSCRIP TION BLOOD 33770 [place] [facility] COUNT 6 [facility]ALTHCAR COMPLETE E E AUTOMATED [facility] THERAPEUT 12734 BAR REINOSOON IC PX 1/> 6 [facility] AREAS INC INC EACH 15 MIN EXERCISES THERAPEUT 03661 BAR REINOSOON IC PX 1/> 6 [facility] AREAS INC INC EACH 15 MIN EXERCISES THERAPEUT 38639 BAR REINOSOON IC PX 1/> 6 [facility] AREAS INC INC EACH 15 MIN EXERCISES THERAPEUT 47588 BAR BAR IC PX 1/> 6 [facility] AREAS INC INC EACH 15 MIN EXERCISES APPL 17663 BAR DINERO MODALITY 6 [facility] 1/> AREAS INC INC ULTRASOUN D EA 15 MIN MANUAL 00214 BAR DINERO THERAPY 6 [facility] TQS 1/> INC INC REGIONS EACH 15 MINUTES THERAPEUT 43819 BAR REINOSOON IC PX 1/> 6 [facility] AREAS INC INC EACH 15 MIN EXERCISES THERAPEUT 40791 BAR REINOSOON IC PX 1/> 6 [facility] AREAS INC INC EACH 15 MIN EXERCISES THERAPEUT 82423 BAR BAR IC PX 1/> 6 [facility] AREAS INC INC EACH 15 MIN EXERCISES THERAPEUT 84234 BAR REINOSOON IC PX 1/> 6 [facility] AREAS INC INC EACH 15 MIN EXERCISES MANUAL 87474 BAR REINOSOON THERAPY 6 [facility] TQS 1/> INC INC REGIONS EACH 15 MINUTES APPL 13877 BAR DINERO MODALITY 6 [facility] 1/> AREAS INC INC ULTRASOUN D EA 15 MIN PHYSICAL 77265 BAR DINERO THERAPY 6 [facility] HOSP EVALUATIO INC INC N THERAPEUT 01216 [place] CLAIRE IC 6 [facility] PROPHYLAC INTERNAL TIC/DX MED INJECTION SUBQ/IM INJECTION J3301 [place] BESSON 6 [place] TRIAMCINO INTERNAL LONE MED ACETONIDE NOS 10 MG COLLECTIO 03676 BAR DINERO N VENOUS 6 [facility]OSP BLOOD INC INC VENIPUNCT URE COMPREHEN 13309 BAR DINERO SIVE 6 [facility] HOSP METABOLIC INC INC PANEL CREATINE 63367 BAR DINERO KINASE MB 6 [facility]OS[facility] FRACTION INC INC ONLY RADIOLOGI 00577 BAR DINERO C EXAM 6 [facility] CHEST 2 INC INC VIEWS FRONTAL&L ATERAL ECG 57717 BAR DINERO ROUTINE 6 [facility]OS[facility] ECG INC INC W/LEAST 12 LDS TRCG ONLY W/O I&R CREATINE 21433 BAR DINERO KINASE 6 [facility]OS[facility] TOTAL INC INC BLOOD 61309 BAR DINERO COUNT 6 [facility] COMPLETE INC INC AUTO&[place] [address] BAR DINERO TROPONIN 6 [facility]OSP QUANTITAT INC INC KATY ECG 06053 BAR RANGEL ROUTINE 6 [facility] W/LEAST P 12 LDS I&R ONLY DRUG TEST G0481 BAR DINERO DEFINITV 6 [facility] HOSP DR ID INC INC METH P DAY 8-14 DRUG CL [place] ANY 80052 BAR DINERO JT LOWER 5 [facility] EXTREM INC INC W/O CONTRAST MATRL SLCTV 32472 CARDIOVAS LISA CATH 5 CULAR MAT 1STORD CONSULTAN W/WO ART TS O PUNCT/FLU OR/S&I MARKOS CATH PLMT 60055 CARDIOVAS LISA L HRT & 5 CULAR MAT ARTS CONSULTAN W/NJX & TS O ANGIO IMG S&I RADEX HIP 37349 [facility] 5 [facility] UNILATERA INC INC L COMPLETE MINIMUM 2 VIEWS RADIOLOGI 41502 [facility] D[facility] C 5 [facility] EXAMINATI INC INC ON KNEE 3 VIEWS CULTURE 85667 COMBINED COMBINED BACTERIAL 5 PHYSICIAN PHYSICIAN S LIANE S LA QUANTTATI VE COLONY COUNT URINE URNLS DIP 48608 [place] MARTINEZ 5 [facility] STICK/TAB INTERNAL LET RGNT MED NON-AUTO W/O MICRSCP 3D 87546 [facility] RENDERING 5 [facility] W/INTERP INC INC & POSTPROCE SS SUPERVISI ON MRI 47693 BAR DINERO SPINAL 5 [facility] CANAL INC INC LUMBAR W/O CONTRAST MATERIAL THERAPEUT 85580 BAR DINERO IC PX 1/> 5 [facility] AREAS INC INC EACH 15 MIN EXERCISES THERAPEUT 91536 BAR DINERO IC PX 1/> 5 [facility] AREAS INC INC EACH 15 MIN EXERCISES APPL 84835 BAR DINERO MODALITY 5 [facility] 1/> AREAS INC INC ULTRASOUN D EA 15 MIN APPL 64605 BAR D[facility]ERO MODALITY 5 [facility] 1/> AREAS INC INC ULTRASOUN D EA 15 MIN MANUAL 93662 [facility] D[facility] THERAPY 5 [facility] TQS 1/> INC INC REGIONS EACH 15 MINUTES THERAPEUT 56970 BAR DINERO IC PX 1/> 5 [facility] AREAS INC INC EACH 15 MIN EXERCISES THERAPEUT 81206 BAR DINERO IC PX 1/> 5 [facility] AREAS INC INC EACH 15 MIN EXERCISES APPL 57369 BAR DINERO MODALITY 5 [facility] 1/> AREAS INC INC IONTOPHOR ESIS EA 15 MIN UNCLASSIF J3490 BAR DINERO IED DRUGS 5 [facility] INC INC UNCLASSIF J3490 BAR DINERO IED DRUGS 5 [facility] INC INC APPL 69582 BAR DINERO MODALITY 5 [facility] 1/> AREAS INC INC IONTOPHOR ESIS EA 15 MIN THERAPEUT 60123 BAR DINERO IC PX 1/> 5 [facility] AREAS INC INC EACH 15 MIN EXERCISES MANUAL 00514 BAR D[facility]ERO THERAPY 5 [facility] TQS 1/> INC INC REGIONS EACH 15 MINUTES APPL 09463 BAR DINERO MODALITY 5 [facility] 1/> AREAS INC INC ULTRASOUN D EA 15 MIN APPL 92892 BAR DINERO MODALITY 5 [facility] 1/> AREAS INC INC ULTRASOUN D EA 15 MIN THERAPEUT 05409 BAR DINERO IC PX 1/> 5 [facility] AREAS INC INC EACH 15 MIN EXERCISES APPL 49470 BAR DINERO MODALITY 5 [facility] 1/> AREAS INC INC TRACTION MECHANICA L THERAPEUT 18451 BAR DINERO IC PX 1/> 5 [facility] AREAS INC INC EACH 15 MIN EXERCISES APPL 46073 BAR DINERO MODALITY 5 [facility] 1/> AREAS INC INC IONTOPHOR ESIS EA 15 MIN UNCLASSIF J3490 BAR DINERO IED DRUGS 5 [facility] INC INC APPL 46146 BAR DINERO MODALITY 5 [facility] 1/> AREAS INC INC ULTRASOUN D EA 15 MIN MANUAL 42275 [facility] D[facility] THERAPY 5 [facility] TQS 1/> INC INC REGIONS EACH 15 MINUTES MANUAL 08421 BAR D[facility]ERO THERAPY 5 [facility] TQS 1/> INC INC REGIONS EACH 15 MINUTES E-STIM G0283 BAR DINERO 1/> AREAS 5 [facility] OTH THAN INC INC WND CARE PART TX PLAN THERAPEUT 95143 BAR DINERO IC PX 1/> 5 [facility] AREAS INC INC EACH 15 MIN EXERCISES PHYSICAL 32296 [facility] D[facility] THERAPY 5 [facility] EVALUATIO INC INC N SUSCEPTIB 31179 [facility] LTY STDY 5 ESOTERIC ESOTERIC ANTIMICRB LABORATOR LABORATOR IAL I I MICRO/AGA R DILUTJ CUL BACT 50299 [facility] AEROBIC 5 ESOTERIC ESOTERIC ADDL LABORATOR LABORATOR METHS I I DEFINITIV E EA ISOL CULTURE 98218 [facility] BACTERIAL 5 ESOTERIC ESOTERIC LABORATOR LABORATOR QUANTTATI I I VE COLONY COUNT URINE COLPOSCOP 57213 ASSOCIATE SARAVIA Y CERVIX 5 S FOR III RAJINDER UPPER/ADJ WOMENS ACENT CARE P VAGINA URINE 82788 ASSOCIATE SARAVIA 5 S FOR III RAJINDER TEST WOMENS VISUAL CARE P COLOR CMPRSN METHS SCREENING G0202 [facility] 5 [facility] MAMMOGRAP INC INC HY MARKOS INCL CAD WHEN PERFORMD COMPUTER- 32557 BAR DINERO AIDED 5 [facility] DETECTION INC INC SCREENING MAMMOGRAP HY SUSCEPTIB 83872 [facility] LTY STDY 5 ESOTERIC ESOTERIC ANTIMICRB LABORATOR LABORATOR IAL I I MICRO/AGA R DILUTJ CYTP C/V 63794 [facility] [employer] [facility] [employer] [facility] LYR PREPJ SCR MNL RESCR PHYS IADNA 92612 [facility] HUMAN [facility] PAPILLOMA VIRUS HIGH-RISK TYPES CUL BACT 42024 [facility] [place] AEROBIC 5 ESOTERIC ESOTERIC ADDL LABORATOR LABORATOR METHS I I DEFINITIV E EA ISOL CULTURE 38620 [facility] [facility] BACTERIAL 5 ESOTERIC ESOTERIC LABORATOR LABORATOR QUANTTATI I I VE COLONY COUNT URINE PSYCHOTHE 70272 HAYES AUGUST LAUREL RAPY 5 .ORG W/PATIENT 30 MINUTES PSYCHOTHE 35682 [facility] RAPY 5 ADULTS ADULTS W/PATIENT 60 MINUTES CONTINUOU E0601 LUIS F LUIS F S 5 HOME HOME POSITIVE MEDICAL MEDICAL AIRWAY EQUIPME EQUIPME PRESSURE DEVICE PSYCHOTHE 25460 [facility] RAPY 5 ADULTS ADULTS W/PATIENT [...] E AIRWAY EQUIPME EQUIPME PRESSURE DEVICE POLYSOM 00849 PAVEZ MAR PAVEZ MAR 6/>YRS 5 SLEEP 4/> ADDL NKECHI ATTND PSYCHOTHE 76560 [facility] RAPY 5 ADULTS ADULTS W/PATIENT 60 MINUTES POLYSOM 37768 BAR DINERO 6/>YRS 5 [facility] SLEEP 4/> INC INC ADDL NKECHI ATTND ECG 01463 CARDIOVAS LISA ROUTINE 5 CULAR MAT ECG CONSULTAN W/LEAST TS O 12 LDS I&R ONLY ECG 48102 BAR DINERO ROUTINE 5 [facility] ECG INC INC W/LEAST 12 LDS TRCG ONLY W/O I&R RADIOLOGI 99216 BAR DINERO C EXAM 5 [facility]OSP CHEST 2 INC INC VIEWS FRONTAL&L ATERAL LOCM Q9967 LAURA SANCHEZ 300-399 5 W W MG/ML REGIONAL REGIONAL IODINE MEDICAL MEDICAL CONCENTRA TION PER ML INJECTION J2001 LAURA BROOKSWVIE 5 W W LIDOCAINE REGIONAL REGIONAL HCL MEDICAL MEDICAL INTRAVENO US INFUS 10 MG INJECTION J1644 LAURA SANCHEZ HEPARIN 5 W W SODIUM REGIONAL REGIONAL PER 1000 MEDICAL MEDICAL UNITS COLLECTIO 34419 LAURA SANCHEZ N VENOUS 5 W W BLOOD REGIONAL REGIONAL VENIPUNCT MEDICAL MEDICAL URE BLOOD 98207 LAURA SANCHEZ COUNT 5 W W COMPLETE [...] REGIONAL SOLUTION MEDICAL MEDICAL 1000 CC BASIC 01581 LAURA BROOKSWBILLY METABOLIC 5 W W PANEL REGIONAL REGIONAL CALCIUM MEDICAL MEDICAL TOTAL CATH PLMT 48347 LAURA SANCHEZ L HRT & 5 W W ARTS REGIONAL REGIONAL W/NJX & MEDICAL MEDICAL ANGIO IMG S&I FLUORESCE 90678 [facility] 5 Y Y NONNFCT [facility] AGT ANTB SCREEN EA ANTIBODY HEPATIC 33564 [facility] FUNCTION 5 Y Y PANEL [facility] COLLECTIO 44832 [facility] N VENOUS 5 Y Y BLOOD [facility] VENIPUNCT URE PROTHROMB 32665 [facility] IN TIME 5 Y Y [facility] ECG 85863 CARDIOVAS LISA ROUTINE 5 CULAR MAT ECG CONSULTAN W/LEAST TS O 12 LDS W/I&R PSYCHOTHE 04460 [facility] RAPY 5 ADULTS ADULTS W/PATIENT 45 MINUTES BIOPSY 03759 [facility] LIVER 5 Y Y NEEDLE [facility] PERCUTANC OUS SPCL STN 73508 [facility] 2 I&R 5 Y Y EXCPT [facility] MICROORG/ ENZYME/IM CYT LEVEL V 47927 [facility] SURG 5 Y Y PATHOLOGY [facility] GROSS&RENU ROSCOPIC EXAM ABDOM 46289 [facility] PARACENTE 5 Y Y [facility] DX/THER W/IMAGING GUIDANCE THROMBOPL 80435 BAR DINERO ASTIN 5 [facility] TIME INC INC PARTIAL PLASMA/WH OLE BLOOD BLOOD 08687 BAR DINERO COUNT 5 [facility] COMPLETE INC INC AUTO&AUTO DIFRNTL WBC COLLECTIO 62764 BAR DINERO N VENOUS 5 [facility] BLOOD INC INC VENIPUNCT URE PROTHROMB 28828 BAR DINERO IN TIME 5 [facility] INC INC PSYCHOTHE 45803 [facility] RAPY 5 ADULTS ADULTS W/PATIENT 30 [place] [address] [facility] GLUTAMYLT 4 Y Y RASE [facility] GAMMA IMMUNOASS 85818 [facility] AY 4 Y Y ANALYTE [facility] [place] [address] [facility] NEPHELOME 4 Y Y TRY EACH [facility] ANALYTE KAMALA PROTHROMB 66817 [facility] IN TIME 4 Y Y [facility] MICROSOMA 53609 [facility] L 4 Y Y ANTIBODIE [facility] S EACH NFCT AGNT 05642 [facility] GENOTYP 4 Y Y NUCLEIC [facility] ACID HEPATITIS C VIRUS COLLECTIO 71373 [facility] N VENOUS 4 Y Y BLOOD [facility] VENIPUNCT URE IADNA 46656 [facility] HEPATITIS 4 Y Y C QUANT [facility] & REVERSE TRANSCRIP TION BLOOD 54527 [facility] UNIVERS COUNT 4 Y Y COMPLETE [facility] AUTOMATED ANTINUCLE 64772 [facility] AR 4 Y Y ANTIBODIE [facility] S TORRES FLUORESCE 94079 [facility] NT 4 Y Y NONNFCT [facility] AGT ANTB SCREEN EA ANTIBODY APOLIPOPR 67159 [facility] OTEIN 4 [place] [address] [facility] HAPTOGLOB 4 Y Y IN HOSPITAL HOSPITAL QUANTITAT KATY PSYCHOTHE 02179 [facility] RAPY 4 .ORG .ORG W/PATIENT 45 MINUTES PSYCHOTHE 60866 [facility] RAPY 4 .ORG .ORG W/PATIENT 45 MINUTES HEPATOBIL 97327 BAR DINERO IARY SYST 4 [facility] IMAGING INC INC INCLUDING GALLBLADD ER UNCLASSIF J3490 BAR D[facility] IED DRUGS 4 [facility] INC INC PSYCHOTHE 84491 [facility] RAPY 4 ADULTS ADULTS W/PATIENT 45 MINUTES PSYCHIATR 16493 [facility] IC 4 ADULTS ADULTS DIAGNOSTI C EVAL W/MEDICAL SERVICES IADNA 70881 BAR DINERO HEPATITIS 4 [facility] C QUANT INC INC & [place] [address] [facility] ABDOMINAL 4 MEDICAL EDWIN REAL IMAGING TIME ASS W/IMAGE LIMITED ACUTE 81914 [facility] HEPATITIS 4 BLOSSOM BLOSSOM PANEL HOLDINGS HOLDINGS COMPREHEN 50132 COMBINED COMBINED SIVE 4 PHYSICIAN PHYSICIAN METABOLIC S LA S LA PANEL COLLECTIO 02412 [place] B[facility] N VENOUS 4 [facility] [place] BLOOD INTERNAL VENIPUNCT MED URE LIPID 67708 COMBINED COMBINED PANEL 4 PHYSICIAN PHYSICIAN S LA S LA BLOOD 50323 COMBINED COMBINED COUNT 4 PHYSICIAN PHYSICIAN COMPLETE S LA S LA AUTO&AUTO DIFRNTL WBC HANDLG&/O 05025 [place] [facility] R CONVEY 4 [place] OF SPEC INTERNAL FOR TR MED OFFICE TO LAB SPMTRY 48965 [place] W/VC 4 [place] EXPIRATOR INTERNAL Y JULIO MED W/WO MXML VOL VNTJ Encounters Encounter Start End Date Code Location Performer Type Date EMERGENCY 84161 AJNAK SHEPARD 7 7 PHYSICIAN JR DEPARTMEN S, PLLC T VISIT HIGH/URGE NT SEVERITY OFFICE 37688 [facility] SRIVASTAV OUTPATIEN 7 7 PHYSICIAN A T VISIT S GROUP 25 MINUTES EMERGENCY 99823 JANAK GARCÍA DEPT 7 7 PHYSICIAN VISIT S, PLLC HIGH SEVERITY& THREAT FUNCJ OFFICE 26930 JORDON JIM OUTPATIEN 7 7 NURSE T VISIT PRACTITIO 25 NER GR MINUTES HOSPITAL - 7 7 [facility] OUTPATIEN E T HOSPITALS OFFICE 30299 [facility] LISA OUTPATIEN 7 7 PHYSICIAN T VISIT S GROUP 40 MINUTES HOSPITAL BAR - 7 7 [facility] OUTPATIEN INC T EMERGENCY 71484 JANAK PULIDO DEPT 7 7 PHYSICIAN VISIT S, PLLC HIGH SEVERITY& THREAT FUNCJ OFFICE 20053 S MARAJOLENE OUTPATIEN 7 7 NURSE CK T VISIT PRACTITIO 25 NER GR MINUTES OFFICE 53688 BAR OUTPATIEN 7 7 [facility] T VISIT INC 10 MINUTES HOSPITAL BAR - 7 7 [facility] OUTPATIEN INC T OFFICE 85244 LETHA EUGENE OUTPATIEN 7 7 MD MOISE, T VISIT PSC 15 MINUTES OFFICE 30720 [facility] RENAN OUTPATIGUCCI 7 7 PHYSICIAN T VISIT S GROUP 15 MINUTES HOSPITAL BAR - 7 7 [facility] OUTPATIEN INC T HOSPITAL BAR - 7 7 [facility] OUTPATIEN INC T HOSPITAL BAR - 7 7 [facility] OUTPATIEN INC T EMERGENCY 28572 BAR 7 7 MEM [facility]OS[facility] DEPARTMEN INC T VISIT HIGH/URGE NT SEVERITY HOSPITAL BAR - 7 7 [facility] OUTPATIEN INC T EMERGENCY 74376 JANAK PULIDO DEPT 7 7 PHYSICIAN VISIT S, PLLC HIGH SEVERITY& THREAT FUNCJ OFFICE 85328 LETHA EUGENE OUTPATIEN 7 7 MD MOISE, T VISIT PSC 15 MINUTES OFFICE 76949 BAR FAYEPATIGUCCI 7 7 [facility] T VISIT INC 10 MINUTES HOSPITAL BAR - 7 7 [facility] OUTPATIEN INC T HOSPITAL BAR - 7 7 [facility] OUTPATIEN INC T OFFICE 58353 BAR ASTUDILLO 7 7 [facility] 15 P MINUTES HOSPITAL BAR - 7 7 [facility] OUTPATIEN INC T OFFICE 62781 [facility] FERNANDEZ OUTPATIEN 7 7 NURSE T VISIT PRACTITIO 25 NER GR MINUTES OFFICE 08461 [facility] [place] OUTPATIEN 7 7 [facility] 15 P [facility] - 7 7 [facility] - 7 7 [facility] OUTPATIEN E HOSPITALS OFFICE 64301 OUTPATIEN 7 [facility] BAR - 7 7 [facility] OUTPATIEN [facility] T OFFICE 78725 BAR OUTPATIEN 7 7 [facility] T [facility]ISIT INC 10 [facility] BAR - 7 7 [facility] OUTPATIEN [facility] BAR - 7 7 [facility] OUTPATIEN [facility] T OFFICE 84831 BAR [place] OUTPATIEN 6 6 [facility] 15 P [facility] BAR - 6 6 [facility] OUTPATIEN [facility] T OFFICE 69276 [facility] OUTPATIEN 6 6 PHYSICIAN EUG T VISIT S GROUP MINUTES OFFICE 13254 [facility] 6 6 Y T VISIT 5 [facility] UNIVERSIT - 6 6 Y OUTPATI HOSPITAL T OFFICE 80451 [facility] [place] OUTPATIEN 6 6 [facility] T VISIT 5 [facility] BAR - 6 6 MEM H[facility] OUTPATIEN INC T OFFICE 64530 [facility] FERNANDEZ OUTPATIEN 6 6 NURSE ANG T VISIT PRACTITIO 25 NER GR MINUTES OFFICE 83132 [facility] [place] OUTPATIEN 6 6 [facility] 10 [facility] BAR - 6 6 [facility] INPATIENT INC EMERGENCY 56028 [facility] DEPT 6 6 PHYSICIAN SAMMI VISIT S, [facility] HIGH [facility]VERITY& THREAT [facility] UNIVERSIT - 6 6 Y [facility] UNIVERSIT [facility] 6 6 Y [facility] T OFFICE [id number] [facility] 6 6 [facility]ICIAN [facility] S GROUP 15 [facility] UNIVERSIT - 6 6 Y [facility] UNIVERSIT [facility] 6 6 Y [facility] UNIVERSIT - 6 6 Y [facility] BAR - 6 6 [facility] OUTPATIEN [facility] EMERGENCY [id number] [place] DEPT 6 6 [facility] VISIT INC HIGH SEVERITY& THREAT [facility] UN[facility] - 6 6 Y [facility] UNIVERSIT - 6 6 Y [facility] UNIVERSIT - 6 6 Y [facility] UNIVERSIT - 6 6 Y [facility] UNIVERSIT - 6 6 Y [facility] UNIVERSIT - 6 6 Y [facility] UNIVERSIT [facility] 6 6 Y [facility] T OFFICE [id number] [facility] 6 6 [facility] VISIT 5 [facility] BAR - 6 6 [facility] UNIVERSIT [facility] 6 6 Y [facility] UN[facility]ERS[facility] - 6 6 [facility] 6 6 [facility] 6 6 [facility] UN[facility] 6 6 [facility] 6 6 Y [facility] T OFF[facility] [id number] LETHA [facility]DIV[facility]LL [facility] 6 6 MD MOISE, T [facility] 30 [facility] OFFICE 13023 [facility] OUTPATI [address] UNIVERSIT - 6 6 [facility] 6 [facility] OFF[facility] 82999 [facility] [address] UNIVERSIT - 6 6 [facility] 6 6 [facility] 6 6 [facility] 6 [facility] 6 6 [facility] BAR - 6 6 [facility] 6 6 Y [facility] OFF[facility] 26590 [facility] 6 6 [facility] 10 [facility] UN[facility]ERSIT - 6 6 [facility] OFF[facility] 82576 UNIVERSIT OUTPATIEN 6 6 Y T VISIT [address] [place] [address] UNIVERSIT [facility] 6 6 Y [facility] T HOSP[facility] BAR - 6 6 [facility] OUTPATIEN [facility] T OFFICE 22288 [facility] OUTPATIEN 6 6 [facility] MINUTES P HOSPITAL BAR - 6 6 [facility] OUTPATIEN [facility] T HOSPITAL UNIVERSIT [facility] 6 6 Y [facility] BAR - 6 6 [facility]PAT[facility]EN [facility] T OFFICE 77797 [facility] 6 6 NURSE CK ANIBAL T VISIT PRACTITIO 25 NER GR MINUTES OFFICE 59404 [place] [facility] 6 6 MEDICAL JAM T VISIT SERV 25 FOUNDATIO MINUTES [facility] 6 6 Y [facility] T OFFICE 95356 [facility] 6 6 Y T VISIT 5 HOSPITAL MINUTES OFFICE 11400 [facility] 6 6 PHYSICIAN RENU T VISIT S GROUP 15 [facility] HOSPITAL BAR - 6 6 [facility] OUTPAT[facility]EN [facility] T [facility] 59815 [facility] 6 PHYSICIAN RENU T NEW 20 S GROUP [facility] UK - 6 6 [facility] OUTPATIEN [facility] BAR - 6 6 [facility]EN [facility] BAR - 6 6 [facility] OUTPATIEN [facility] T OFFICE [id number] [facility] [facility] 6 6 [place] T VISIT 5 INTERNAL MINUTES MED EMERGENCY [id number] BAR 6 6 [facility] DEPARTMEN INC T VISIT MODERATE SEVERITY EMERGENCY 82446 JANAK SHEPARD, DEPT 6 6 PHYSICIAN JR MADERA VISIT S, [facility] HIGH SEVERITY& THREAT [facility] BAR - 6 6 [facility] BAR - 5 5 [facility] OUTPATIEN INC T OFFICE 15908 [place] SHASHI PHI CONSULTAT 5 5 MEDICAL ION SERV NEW/ESTAB FOUNDATIO PATIENT N 40 MIN OFFICE [id number] [facility] PETTESirisha OUTPATIEN 5 5 PHYSICIAN YANCI URBINA [address] [facility] BAR - 5 5 [facility] OUTPATIEN INC T OFFICE [id number] [place] MARTINEZ OUTPATIEN 5 5 [facility] T VISIT INTERNAL 15 [facility] BAR - 5 5 [facility] OUTPATIEN INC T OFFICE [id number] [place] [facility] [facility] 5 5 [place] T VISIT INTERNAL 25 [facility] BAR - 5 5 [facility] BAR - 5 5 [facility] OUTPATIEN INC T OFFICE 78619 ASSOCIATE MANJIT ASTUDILLO 5 5 S FOR III RAJINDER T VISIT WOMENS 15 CARE P [facility] BAR - 5 5 [facility] OUTPATIEN INC T INITIAL 91617 ASSOCIATE EMMY ALLEN PREVENTIV 5 5 S FOR E [facility] NEW PATIENT 40-64YRS OFFICE 35036 [place] [facility] AND OUTPATIEN 5 5 VALLEY T VISIT INTERNAL 15 [facility] BAR - 5 5 [facility] OUTPATIEN INC T OFFICE 16241 CARDIOVAS LISA OUTPATIEN 5 5 CULAR MAT T VISIT CONSULTAN 25 TS O [facility] BAR - 5 5 [facility] OUTPATIEN [facility] H[facility]PITAL MEADOWVIE - 5 5 W [facility] - 5 5 Y [facility] T OFFICE 94003 [place] SOURIANAR OUTPATIEN 5 5 MEDICAL AYANANE T VISIT SERV ACH 15 FOUNDATIO MINUTES N OFFICE 39155 CARDIOVAS LISA OUTPATIEN 5 5 CULAR MAT T NEW 60 CONSULTAN MINUTES TS O OFFICE 07739 [facility] 5 5 ADULTS ADULTS T VISIT 15 MINUTES [facility] UN[facility]ERSIT - 5 5 Y [facility] BAR - 5 5 [facility] - 4 4 Y [facility] T OFFICE 21260 [facility] OUT[facility] 4 4 .ORG .ORG T VISIT 15 MINUTES [facility] BAR - 4 4 [facility] BAR - 4 4 [facility] 01735 [place] [facility] 4 4 [facility] T VISIT 5 INTERNAL MINUTES MED OFFICE 75749 [place] [facility] OUT[facility] 4 4 [facility] T NEW 45 INTERNAL MINUTES MED EMERGENCY 16798 [facility] [place] 4 4 [facility] EMERGENCY T VISIT PHYS MODERATE SEVERITY
--- OUTSIDE RECORDS SUMMARY | 2017-02-09 17:21 | External Medical Summary Rpt | CCD ---
Demographics Preferred Language Polish Marital Status Unknown Restoration Affiliation Unknown Race Unknown Ethnic Group Unknown Author Author , GAUDENCIO RATLIFF Address Unknown Phone Immunization No patient found.
--- OUTSIDE RECORDS SUMMARY | 2017-02-09 17:21 | External Medical Summary Rpt | CCD ---
Demographics Preferred Language Danish Marital Status Unknown Jew Affiliation Unknown Race Unknown Ethnic Group Unknown Author Author , GAUDENCIO RATLIFF Address Unknown Phone Immunization No patient found.
--- OUTSIDE RECORDS SUMMARY | 2017-02-09 17:21 | External Medical Summary Rpt ---
Author Author GAUDENCIO Manpreet, [employer] Organization [employer] Address Unknown Phone Unavailable Results Lactate [Moles/volume] in Blood Observa Value Referen Units Interpr Notes Date tion ce etation Range Lactate 0.4 - 2.0 mmol/L Normal No Jan 16 [Moles/vo informati 2016 lume] in on in 11:40 PM Blood source data CBC W Auto Differential panel in Blood Observa Value Referen Units Interpr Notes Date tion ce etation Range Basophils 0 - 0.2 K/MM3 Normal No Jan 162016 [#/volume on in 10:35 PM ] in source Blood by data Automated count Basophils 0.1 - 2.0 % Normal No Jan 162016 leukocyte on in 10:35 PM s in source Blood by data Automated count Eosinophi 0.0 - 0.4 K/mm3 Normal No Jan 16 ls 2016 [#/volume on in 10:35 PM ] in source Blood by data Automated count Eosinophi 0.1 - % Normal No Jan 16 ls/100 12.0 2016 leukocyte on in 10:35 PM s in source Blood by data Automated count Granulocy 1.8 - 7.8 K/mm3 Normal No Jan 16 tiny 2016 [#/volume on in 10:35 PM ] in source Blood by data Automated count Granulocy 37.0 - % High No Jan 16 tiny/100 80.0 2016 leukocyte on in 10:35 PM s in source Blood by data Automated count Hematocri 37.0 - % Normal No Jan 16 t [Volume 47.0 2016 on in 10:35 PM Fraction] source of Blood data Hemoglobi 12.2 - g/dL Normal No Jan 16 n 16.2 2016 [Mass/vol on in 10:35 PM ume] in source Blood data Lymphocyt 0.7 - 4.5 K/mm3 Normal No Jan 16 es 2016 [#/volume on in 10:35 PM ] in source Unspecifi data ed specimen by Automated count Lymphocyt 10 - 50.0 % Normal No Jan 3 es inform 2017 [#/volume on in 10:35 PM ] in source Unspecifi data ed specimen by Automated count Erythrocy 27 - 31.2 pg Normal No Jan 3 te mean 2016 corpuscul on in 10:35 PM ar source hemoglobi data n [Entitic mass] Erythrocy 31.8 - g/dl Normal No Jan 16 te mean 35.4 2016 corpuscul on in 10:35 PM ar source hemoglobi data n concentra tion [Mass/vol ume] by Automated count Erythrocy 82.2 - fl Normal No Jan 16 te mean 97.8 inform2016 corpuscul on in 10:35 PM ar volume source [Entitic data volume] by Automated count Monocytes 0.1 - 1.0 K/mm3 Normal No Jan 3 2016 [#/volume on in 10:35 PM ] in source Blood by data Automated count Monocytes 1.7 - 9.3 % Normal No Jan 3 /100 2017 leukocyte on in 10:35 PM s in source Blood by data Automated count Platelet 7.4 - fl Normal No Jan 3 mean 10.4 2016 volume on in 10:35 PM [Entitic source volume] data in Blood by Automated count Platelets 142 - 424 K/mm3 Normal No Jan 3 2016 [#/volume on in 10:35 PM ] in source Blood data Erythrocy 4.2 - 5.4 M/mm3 Normal No Jan 3 tiny 2016 [#/volume on in 10:35 PM ] in source Amniotic data fluid Erythrocy 11.5 - % Normal No Jan 16 te 17.5 2016 distribut on in 10:35 PM ion width source [Entitic data volume] by Automated count Leukocyte 4.8 - K/MM3 Normal No Jan 3 s 10.8 2016 [#/volume on in 10:35 PM ] in source Blood data Glucose [Mass/volume] in Capillary blood by Glucometer Observa Value Referen Units Interpr Notes Date tion ce etation Range Glucose 70 - 110 mg/dl Normal No Sep 12 [Mass/vol informati 2016 ume] in on in 12:21 PM Capillary source blood by data Glucomete r Lactate [Moles/volume] in Blood Observa Value Referen Units Interpr Notes Date tion ce etation Range Lactate 0.4 - 2.0 mmol/L Normal No Sep 12 [Moles/vo inform 2017 lume] in on in 12:05 PM Blood source data Natriutietic peptide B [Mass/volume] in Serum or Plasma Observa Value Referen Units Interpr Notes Date tion ce etation Range Natriutie 0 - 100 pg/mL High No Sep 12 tic inform 2017 peptide B on in 12:05 PM source [Mass/vol data ume] in Serum or Plasma Fibrin D-dimer FEU [Mass/volume] in Platelet poor plasma Observa Value Referen Units Interpr Notes Date tion ce etation Range Fibrin 0 - 400 ng/mL Normal The Dec 12 D-dimer D-Dimer 2016 FEU values 12:05 PM [Mass/vol are ume] in presented Platelet in units poor of plasma mass(ng/m L) ofD-Dimer units(DDU ).This test has been FDA approved as an aid in the assessmen tand evaluatio n of suspected DIC, and thromboem bolic eventsinc luding PE and DVT. However, it does not have approvalf or cut-off values for the exclusion of these condition s. CBC W Auto Differential panel in Blood Observa Value Referen Units Interpr Notes Date tion ce etation Range Basophils 0 - 0.2 K/MM3 Normal No Sep 12 inform2016 [#/volume on in 12:05 PM ] in source Blood by data Automated count Basophils 0.1 - 2.0 % Normal No Sep 12 inform2016 leukocyte on in 12:05 PM s in source Blood by data Automated count Eosinophi 0.0 - 0.4 K/mm3 Normal No Sep 12 ls inform2016 [#/volume on in 12:05 PM ] in source Blood by data Automated count Eosinophi 0.1 - % Normal No Sep 12 ls/100 12.0 inform2016 leukocyte on in 12:05 PM s in source Blood by data Automated count Granulocy 1.8 - 7.8 K/mm3 Normal No Sep 12 tiny inform 2017 [#/volume on in 12:05 PM ] in source Blood by data Automated count Granulocy 37.0 - % Normal No Sep 12 tiny/100 80.0 inform2016 leukocyte on in 12:05 PM s in source Blood by data Automated count Hematocri 37.0 - % Normal No Sep 12 t [Volume 47.0 informati 2016 on in 12:05 PM Fraction] source of Blood data Hemoglobi 12.2 - g/dL No No Sep 12 n 16.2 informati informati 2016 [Mass/vol on in on in 12:05 PM ume] in source source Blood data data Lymphocyt 0.7 - 4.5 K/mm3 Normal No Sep 12 es inform2016 [#/volume on in 12:05 PM ] in source Unspecifi data ed specimen by Automated count Lymphocyt 10 - 50.0 % Normal No Sep 12 es inform 2017 [#/volume on in 12:05 PM ] in source Unspecifi data ed specimen by Automated count Erythrocy 27 - 31.2 pg Normal No Sep 12 te mean inform2016 corpuscul on in 12:05 PM ar source hemoglobi data n [Entitic mass] Erythrocy 31.8 - g/dl Normal No Sep 12 te mean 35.4 inform2016 corpuscul on in 12:05 PM ar source hemoglobi data n concentra tion [Mass/vol ume] by Automated count Erythrocy 82.2 - fl Normal No Sep 12 te mean 97.8 inform2016 corpuscul on in 12:05 PM ar volume source [Entitic data volume] by Automated count Monocytes 0.1 - 1.0 K/mm3 Normal No Sep 12 inform2016 [#/volume on in 12:05 PM ] in source Blood by data Automated count Monocytes 1.7 - 9.3 % High No Sep 12 /100 inform2016 leukocyte on in 12:05 PM s in source Blood by data Automated count Platelet 7.4 - fl Normal No Sep 12 mean 10.4 inform2016 volume on in 12:05 PM [Entitic source volume] data in Blood by Automated count Platelets 142 - 424 K/mm3 Normal No Sep 12 inform2016 [#/volume on in 12:05 PM ] in source Blood data Erythrocy 4.2 - 5.4 M/mm3 Normal No Sep 12 tiny informati 2016 [#/volume on in 12:05 PM ] in source Amniotic data fluid Erythrocy 11.5 - % Normal No Sep 12 te 17.5 inform2016 distribut on in 12:05 PM ion width source [Entitic data volume] by Automated count Leukocyte 4.8 - K/MM3 Low No Sep 12 s 10.8 informati 2016 [#/volume on in 12:05 PM ] in source Blood data Urea nitrogen [Mass/volume] in Serum or Plasma Observa Value Referen Units Interpr Notes Date ti ce etation Range Urea 7 - 18 mg/dL Normal No Nov 02 nitrogen informati 2016 [Mass/vol on in 12:07 PM ume] in source Serum or data Plasma CREATININE Observa Value Referen Units Interpr Notes Date ti ce etation Range Creatinin 0.55 - mg/dL Normal No Nov 02 e 1.02 informati 2016 [Mass/vol on in 12:07 PM ume] in source Serum or data Plasma Estimated 59- ML/MIN No REFERENCE Nov 02 informati RANGE: 2017 glomerula on in >60 12:07 PM r source ML/MIN/1. filtratio data 73 SQUARE n rate METERSIf (GF this patient is -A merican, then multiply theresult by 1.210. CBC W Auto Differential panel in Blood Observa Value Referen Units Interpr Notes Date ce etation Range Basophils 0 - 0.2 K/MM3 Normal No Oct 25 inform2016 [#/volume on in 10:00 PM ] in source Blood by data Automated count Basophils 0.1 - 2.0 % Normal No Oct 25 inform2016 leukocyte on in 10:00 PM s in source Blood by data Automated count Eosinophi 0.0 - 0.4 K/mm3 Normal No Oct 25 ls 2016 [#/volume on in 10:00 PM ] in source Blood by data Automated count Eosinophi 0.1 - % Normal No Oct 25 ls/100 12.0 inform2016 leukocyte on in 10:00 PM s in source Blood by data Automated count Granulocy 1.8 - 7.8 K/mm3 Normal No Oct 25 tiny informati 2016 [#/volume on in 10:00 PM ] in source Blood by data Automated count Granulocy 37.0 - % Normal No Oct 25 tiny/100 80.0 informati 2016 leukocyte on in 10:00 PM s in source Blood by data Automated count Hematocri 37.0 - % Normal No Oct 25 t [Volume 47.0 informati 2016 on in 10:00 PM Fraction] source of Blood data Hemoglobi 12.2 - g/dL Normal No Oct 25 n 16.2 informati 2016 [Mass/vol on in 10:00 PM ume] in source Blood data Lymphocyt 0.7 - 4.5 K/mm3 Normal No Oct 25 es inform2016 [#/volume on in 10:00 PM ] in source Unspecifi data ed specimen by Automated count Lymphocyt 10 - 50.0 % Normal No Oct 25 es informati 2016 [#/volume on in 10:00 PM ] in source Unspecifi data ed specimen by Automated count Erythrocy 27 - 31.2 pg Normal No Oct 25 te mean inform2016 corpuscul on in 10:00 PM ar source hemoglobi data n [Entitic mass] Erythrocy 31.8 - g/dl Normal No Oct 25 te mean 35.4 inform2016 corpuscul on in 10:00 PM ar source hemoglobi data n concentra tion [Mass/vol ume] by Automated count Erythrocy 82.2 - fl Normal No Oct 25 te mean 97.8 inform2016 corpuscul on in 10:00 PM ar volume source [Entitic data volume] by Automated count Monocytes 0.1 - 1.0 K/mm3 Normal No Oct 25 informati 2016 [#/volume on in 10:00 PM ] in source Blood by data Automated count Monocytes 1.7 - 9.3 % Normal No Oct 25 /2016 leukocyte on in 10:00 PM s in source Blood by data Automated count Platelet 7.4 - fl Normal No Oct 25 mean 10.4 2016 volume on in 10:00 PM [Entitic source volume] data in Blood by Automated count Platelets 142 - 424 K/mm3 Normal No Oct 252016 [#/volume on in 10:00 PM ] in source Blood data Erythrocy 4.2 - 5.4 M/mm3 Normal No Oct 25 tiny informati 2016 [#/volume on in 10:00 PM ] in source Amniotic data fluid Erythrocy 11.5 - % Normal No Oct 25 te 17.5 ati 2016 distribut on in 10:00 PM ion width source [Entitic data volume] by Automated count Leukocyte 4.8 - K/MM3 Normal No Oct 25 s 10.8 informati 2016 [#/volume on in 10:00 PM ] in source Blood data Lipid 1996 panel in Serum or Plasma Observa Value Referen Units Interpr Notes Date tion ce etation Range Cholester < 200 mg/dL High No September 10 ol informati 2017 6:20 [Moles/vo on in AM lume] in source Unspecifi data ed specimen Cholester 40 - 60 MG/DL Normal No September 10 ol in HDL informati 2016 6:20 on in AM [Mass/vol source ume] in data Serum or Plasma Cholester 0 - 130 mg/dL High No September 10 ol in LDL informati 2016 6:20 on in AM [Mass/vol source ume] in data Serum or Plasma by calculati on Triglycer 30 - 200 mg/dL Normal No September 10 magaly informati 2016 6:20 [Moles/vo on in AM lume] in source Serum or data Plasma Cholester 0 - 40 No Normal No September 10 ol in informati informati 2016 6:20 VLDL on in on in AM [Mass/vol source source ume] in data data Serum or Plasma Cardiac enzymes Observa Value Referen Units Interpr Notes Date tion ce etation Range Creatine 0 - 4.0 U/L Normal No September 10 kinase.MB informati 2016 6:20 /Creatine on in AM source kinase.to data kennedi [Ratio] in Serum or Plasma Creatine 0.0 - 3.6 ng/mL Normal No September 10 kinase.MB informati 2017 6:20 on in AM [Mass/vol source ume] in data Serum or Plasma Creatine 26 - 192 U/L Normal No September 10 kinase informati 2017 6:20 [Enzymati on in AM c source activity/ data volume] in Serum or Plasma Troponin 0.00 - ng/mL Normal 0.04 - September 10 I.cardiac 0.06 0.49 IS 2017 6:20 AN AM [Mass/vol INDETERMI ume] in NANT Serum or ZONEAnd Plasma can be consisten t with the following diseases: Trauma Criticall y ill patients Lyons >30% TBSACHF Hypothyro idism Amyloidos isHyperte nsion Myocardit is SepsisHyp otension Rhabdomyo lysis Vital exhaust.P ostop surgery Pulmonary embolism CVARenal failure Acute neurologi ilan disease Atrial fib. Cardiac enzymes Observa Value Referen Units Interpr Notes Date tion ce etation Range Creatine 0 - 4.0 U/L Normal No September 10 kinase.MB informati 2016 3:08 /Creatine on in AM source kinase.to data kennedi [Ratio] in Serum or Plasma Creatine 0.0 - 3.6 ng/mL Normal No September 10 kinase.MB informati 2016 3:08 on in AM [Mass/vol source ume] in data Serum or Plasma Creatine 26 - 192 U/L Normal No September 10 kinase inform2016 3:08 [Enzymati on in AM c source activity/ data volume] in Serum or Plasma Troponin 0.00 - ng/mL High 0.04 - September 10 I.cardiac 0.06 0.49 IS 2017 3:08 AN AM [Mass/vol INDETERMI ume] in NANT Serum or ZONEAnd Plasma can be consisten t with the following diseases: Trauma Criticall y ill patients Lyons >30% TBSACHF Hypothyro idism Amyloidos isHyperte nsion Myocardit is SepsisHyp otension Rhabdomyo lysis Vital exhaust.P ostop surgery Pulmonary embolism CVARenal failure Acute neurologi ilan disease Atrial fib. CBC W Auto Differential panel in Blood Observa Value Referen Units Interpr Notes Date tion ce etation Range Basophils 0 - 0.2 K/MM3 Normal No September 092016 [#/volume on in 11:30 PM ] in source Blood by data Automated count Basophils 0.1 - 2.0 % Normal No September 092016 leukocyte on in 11:30 PM s in source Blood by data Automated count Eosinophi 0.0 - 0.4 K/mm3 Normal No September 09 ls 2016 [#/volume on in 11:30 PM ] in source Blood by data Automated count Eosinophi 0.1 - % Normal No September 09 ls/100 12.0 2016 leukocyte on in 11:30 PM s in source Blood by data Automated count Granulocy 1.8 - 7.8 K/mm3 Normal No September 09 tiny inform2016 [#/volume on in 11:30 PM ] in source Blood by data Automated count Granulocy 37.0 - % Normal No September 09 tiny/100 80.0 2016 leukocyte on in 11:30 PM s in source Blood by data Automated count Hematocri 37.0 - % Normal No September 09 t [Volume 47.0 inform2016 on in 11:30 PM Fraction] source of Blood data Hemoglobi 12.2 - g/dL Normal No September 09 n 16.2 inform2016 [Mass/vol on in 11:30 PM ume] in source Blood data Lymphocyt 0.7 - 4.5 K/mm3 Normal No September 09 es 2016 [#/volume on in 11:30 PM ] in source Unspecifi data ed specimen by Automated count Lymphocyt 10 - 50.0 % Normal No September 09 es informati 2016 [#/volume on in 11:30 PM ] in source Unspecifi data ed specimen by Automated count Erythrocy 27 - 31.2 pg Normal No September 09 te mean informati 2016 corpuscul on in 11:30 PM ar source hemoglobi data n [Entitic mass] Erythrocy 31.8 - g/dl Normal No September 09 te mean 35.4 informati 2016 corpuscul on in 11:30 PM ar source hemoglobi data n concentra tion [Mass/vol ume] by Automated count Erythrocy 82.2 - fl Normal No September 09 te mean 97.8 informati 2016 corpuscul on in 11:30 PM ar volume source [Entitic data volume] by Automated count Monocytes 0.1 - 1.0 K/mm3 Normal No September 09 informati 2016 [#/volume on in 11:30 PM ] in source Blood by data Automated count Monocytes 1.7 - 9.3 % Normal No September 09 /100 informati 2016 leukocyte on in 11:30 PM s in source Blood by data Automated count Platelet 7.4 - fl Low No September 09 mean 10.4 informati 2016 volume on in 11:30 PM [Entitic source volume] data in Blood by Automated count Platelets 142 - 424 K/mm3 Normal No September 09 inform2016 [#/volume on in 11:30 PM ] in source Blood data Erythrocy 4.2 - 5.4 M/mm3 Normal No September 09 tiny informati 2016 [#/volume on in 11:30 PM ] in source Amniotic data fluid Erythrocy 11.5 - % Normal No September 09 te 17.5 informati 2016 distribut on in 11:30 PM ion width source [Entitic data volume] by Automated count Leukocyte 4.8 - K/MM3 Normal No September 09 s 10.8 informati 2016 [#/volume on in 11:30 PM ] in source Blood data
== END 2017-02-09 11:19 | disposition home or self-care (01) ==
LOC: UTC 09:51
DX: M25.561 Pain in right knee (principal); W22.03XA Walked into furniture, initial encounter; Y92.013 Bedroom of single-family (private) house as the place of occurrence of the external cause; Z88.6 Allergy status to analgesic agent; I10 Essential (primary) hypertension; E78.5 Hyperlipidemia, unspecified; J44.9 Chronic obstructive pulmonary disease, unspecified; F17.210 Nicotine dependence, cigarettes, uncomplicated

== ENCOUNTER → 2017-02-19 | Outpatient (CLI) | payer MEDICAID ==
[~2017-02-19] MED LIST changes: +ETODOLAC200 MG PO
== END ==
LOC: LAB 11:44
DX: R14.0 Abdominal distension (gaseous) (principal)

== ENCOUNTER → 2017-02-23 | Outpatient (CLI) | payer MEDICAID ==
--- NOTE | 2017-02-23 14:17 | RADIOLOGY REPORT PS360 ---
UGI SERIES W/SMALL BOWEL HISTORY: Abdominal pain REFLUX ORDERING PHYSICIAN: AMARA TREVIZO MD PATIENT AGE: 56 years COMPARISON: None Fluoroscopy time: 5 minutes and 11 seconds FINDINGS: The esophagus has an unremarkable appearance. No hernia or mass. There is mild prominence of the rugal folds of the stomach. This is nonspecific and could be seen with gastritis. No obvious ulcer. The duodenum has an unremarkable appearance. No evidence of small bowel obstruction or mass or mucosal abnormality. Spot views of the small bowel are unremarkable. The terminal ileum was difficult to visualize being low in the pelvis. IMPRESSION: 1. Thickening of the rugal folds of the body of the stomach. While this could be due to nondistention, gastritis is also included in the differential diagnosis 2. Otherwise negative upper GI with small bowel follow-through
== END ==
LOC: RAD 09:43
DX: R10.9 Unspecified abdominal pain (principal)